=== PATIENT | female | born 2000 | race Caucasian/White ===

== ENCOUNTER 2023-07-31 21:01 | Outpatient (REF) | payer BC, SELFPAY ==
[2023-08-05 13:07] LABS: Age Gdln ACOG Testing Note (.); IGP, rfx Aptima HPV ASCU Note (.)
== END 2023-07-31 21:02 | disposition home or self-care (01) ==
LOC: LAB 21:01
PROVIDERS: PCP Family Medicine; Visit Provider Obstetrics & Gynecology
DX: Z12.4 Encounter for screening for malignant neoplasm of cervix (principal)
CPT/HCPCS: G0145

== ENCOUNTER 2025-07-08 14:07 | Outpatient (RCR) | payer BC, SELFPAY ==
--- OUTSIDE RECORDS SUMMARY | 2025-07-08 14:01 | XMS_ITS | Encounter Summary ---
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 Name Role Phone Humza Foy MD Primary Care Provider [phone] Encounter Details DateTypeDepartmentCare Team (Latest Contact Info)Gifplolwapx14/22/2025Telephone [facility] [address] [place] [phone] Roseanne Jones MA Social History Tobacco UseTypesPacks/DayYears UsedDateSmoking Tobacco: NeverSmokeless Tobacco: NeverAlcohol UseStandard Drinks/WeekCommentsNever0 (1 standard drink = 0.6 oz pure alcohol)CommentsUnknownSex and Gender InformationValueDate Recorded Sex Assigned at BirthNot on fileLegal IwpXdcqfo51/15/2023 7:25 PM EDTGender IdentityNot on fileSexual OrientationNot on filedocumented as of this encounter Miscellaneous Notes * Telephone Encounter - Roseanne Jones MA - 07/08/2025 12:39 PM EDT Verbal order per Dr. Mckinley for hCG level. Pt called and advised that orders were faxed to [facility] whenever she is ready to do them. PVU documented in this encounter Plan of Treatment DateTypeDepartmentCare Team (Latest Contact Info)Fvrnjuqsaaw07/04/2025 9:50 AM ESTOffice Visit [facility] [address] [place] [phone] John Mckinley, [address] [place], [place] [phone] NameTypePriorityAssociated DiagnosesOrder SchedulehCG, quantitative, LabRoutine Positive urine test ([facility]) Expected: 07/08/2025 (Approximate), Expires: 01/06/2026documented as of this encounter Visit Diagnoses Diagnosis Positive urine test ([facility]) documented in this encounter Care Teams Team MemberRelationshipSpecialtyStart DateEnd Date Humza Foy MD [address] [facility] [place] [phone] PCP - GeneralFamily Yyuictvn47/14/23documented as of this encounter
--- OUTSIDE RECORDS SUMMARY | 2025-07-08 14:01 | XMS_ITS | Clinical Summary ---
Author Organization [facility] Formerly [facility] tem Address [id number] [place] [address] Care Team Providers Care Sports Complex Attendant Name Role Phone Humza Foy MD Primary Care Provider [phone] Allergies Active AllergyReactionsCriticalityNoted AhowZkczcbeoLtanjpnnule43/01/2019 Medications No known medications Social History Tobacco UseTypesPacks/DayYears UsedDateSmoking Tobacco: Never AssessedChildcare AnswerDate YamsgyxaMlcmpphfvKnlhevf27/01/2019EmploymentAnswerDate Recorded GzddiawgdxMypgsgn30/01/2019Purpose - LifeAnswerDate RecordedPurpose and direction in tjdhTbbivex36/11/2021CommentsUnknownSex and Gender InformationValueDate RecordedSex Assigned at BirthNot on fileLegal SexFemale 03/17/2019 11:04 PM EDTGender IdentityNot on fileSexual OrientationNot on file Last Filed Vital Signs Vital SignReadingTime TakenCommentsBlood Xhnrhclv816/8007 11:17 PM EDT Jzrvq375303/17/2019 11:17 PM TWVDyswwpzgurc25.9 ??C (98.5 ??F)03/17/2019 11:17 PM EDTRespiratory Eyud893603/17/2019 11:17 PM EDTOxygen Toovjxamgf49%03/17/2019 11:17 PM EDTInhaled Oxygen Concentration--Zdrzrk41.3 kg (159 lb 6.3 oz)03/17/2019 11:17 PM LRXZtvecg253.6 cm (5' 6 )03/17/2019 11:17 PM EDTBody Mass Index25.73 03/17/2019 11:17 PM EDT Plan of Treatment Health MaintenanceDue DateLast DoneCommentsDepression Nrcaynzuc83/20/2013Tobacco Ccoxlfofs65/20/2013dult BMI Gyfknovke94/20/2019DTaP,Tdap and Td Vaccines (1 - Tdap)2019Pap Smear2021Influenza Tbhprvb3805/18/2025 Medical Devices Not on file Insurance * Guarantor: Jem Briceño TypeRelation to PatientDate of BirthPhone Billing AddressPersonal/NuxufkQvnb14/20/[address] [address] Care Teams Team MemberRelationshipSpecialtyStart Date Humza Foy MD PCP - GeneralFamily Medicine03/17/19
--- OUTSIDE RECORDS SUMMARY | 2025-07-08 14:01 | XMS_ITS | Clinical Summary ---
Author Organization [facility] Address [address] [place] [address] Care Team Providers Care Visual Basic Programmer Name Role Phone Humza Foy MD Primary Care Provider [phone] Allergies Active AllergyReactionsCriticalityNoted GxsgRcmkbkqwBuxhhqwenpiSuxxk57/06/2019 Medications MedicationSigDispense QuantityRefillsLast FilledStart DateEnd DateStatus pantoprazole (PROTONIX) 20 MG tablet Take 20 mg by mouth daily .Active sucralfate (CARAFATE) 1 gram tablet Take 1 g by mouth 4 (four) times a day before meals .Active norgestimate-ethinyl estradiol (ORTHO TRI-CYCLEN,TRINESSA) 0.18/0.215/0.25 mg-35 mcg (28) per tablet Take 1 tablet by mouth daily .Active ondansetron (ZOFRAN) 4 MG tablet Take 1 (one) tablet (4 mg total) by mouth every 8 (eight) hours as needed for nausea . 20 tablet 12/25/2018Active Active Problems ProblemNoted DateDiagnosed DateAcute ukqxsvryx83/07/2019 Family History Medical HistoryRelationCommentsGallbladder diseaseMaternal GrandmotherPancreatic cancerMaternal GrandmotherBreast cancerPaternal GrandmotherRelationStatus CommentsMaternal GrandmotherPaternal Grandmother Social History Tobacco UseTypesPacks/DayYears UsedDateSmoking Tobacco: NeverSmokeless Tobacco: NeverAlcohol UseStandard Drinks/WeekCommentsNot Currently0 (1 standard drink = 0.6 oz pure alcohol)CommentsNoSex and Gender InformationValueDate RecordedSex Assigned at BirthNot on fileLegal JgqEhzsfy51/06/2019 10:13 PM EDT Gender WjllnpouBxxfky92/06/2019 10:20 PM EDTSexual OrientationNot on file Last Filed Vital Signs Vital SignReadingTime TakenCommentsBlood Syvbwheg903/6104 8:19 AM EDT Rhgkz7003 8:19 AM WXKYeuoonrwmuw60.8 ??C (98.3 ??F)12/25/2018 8:19 AM EDTRespiratory Jnab9734 8:19 AM EDTOxygen Vpwdesuayr76%12/25/2018 8:19 AM EDTInhaled Oxygen Concentration--Ribtow43.1 kg (145 lb 11.6 oz)12/25/2018 4:04 AM OAUCkaqmo858.6 cm (5' 4 )12/23/2018 11:11 AM EDTBody Mass Index25.01 12/23/2018 11:11 AM EDT Plan of Treatment Health MaintenanceDue DateLast DoneCommentsChlamydia Nekkvhvib44/20/2001Tetanus: Every 10yrs (RETIRED)2000Wellness Visit2003Depression Screening/Follow-Up (PHQ-2/9)2012HIV Ueqipaqjo58/20/2016HPV Vaccines (1 - 3-dose series)2015Pap Smear2COVID-19 Vaccine ( season) 2025Influenza Vaccine (#1)2025Hepatitis C ScreeningCompleted 12/21/2018Pneumococcal VaccineAged OutNo longer eligible based on patient's age to complete this topic Procedures Procedure NamePriorityDate/TimeAssociated DiagnosisCommentsHEPATITIS PANEL, ACUTEAdd-On12/21/2018 10:21 PM EDT from Last 3 Months or Most Recently Relevant to Health Maintenance Results * Hepatitis Panel, Acute (12/21/2018 10:21 PM EDT)ComponentValueRef RangeTest MethodAnalysis TimePerformed AtPathologist SignatureHep A IgMNegativeNegative 12/22/2018 1:20 PM [facility] LABHep B C IgMNegative Pmyvihkr94/07/2019 1:20 PM EDTR[facility] LABHepatitis B Surface JwWupesrbhAspobitd24/07/2019 1:20 PM [facility] LABHepatitis C MrLcbxjdgxOesatdjr56/07/2019 1:20 PM [facility] LABSpecimen (Source)Anatomical Location / LateralityCollection Method / VolumeCollection TimeReceived TimeBloodBLOOD SPECIMEN / UnknownVenipuncture / Vofcuxo5712/21/2018 10:21 PM EDT12/21/2018 10:31 PM EDT Narrative LAB - 12/22/2018 1:20 PM EDT Test performed using Colin MIRIAM immunoassay system Authorizing ProviderResult TypeResult StatusDandrejustine Wagner DOLAB BLOOD ORDERABLESFinal ResultPerforming OrganizationAddressCity/State/ZIP CodePhone Number LAB [address] [place] [address] from Last 3 Months or Most Recently Relevant to Health Maintenance Insurance * Guarantor: Mark Briceño TypeRelation to PatientDate of BirthPhone Billing AddressPersonal/PfvitlXubj95/20/2001 [phone] (Home) [address] [place] [address] Advance Directives For more information, please contact: [phone] * Full Code (Latest Code Status on File) Date ActivatedDate InactivatedComments12/22/2018 1:22 AM Care Teams Team MemberRelationshipSpecialtyStart DateEnd Date Humza Foy MD [address] [facility] [place] [phone] PCP - GeneralFamily Medicine12/21/18
--- OUTSIDE RECORDS SUMMARY | 2025-07-08 14:01 | XMS_ITS | Encounter Summary ---
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 Name Role Phone Humza Foy MD Primary Care Provider [phone] Encounter Details DateTypeDepartmentCare Team (Latest Contact Info)Lkzbrfmasmk42/07/2025Telephone [facility] [address] [place] [address] Song Bains MD [address] [place], [place] [phone] Social History Tobacco UseTypesPacks/DayYears UsedDateSmoking Tobacco: NeverSmokeless Tobacco: NeverAlcohol UseStandard Drinks/WeekCommentsNever0 (1 standard drink = 0.6 oz pure alcohol)CommentsUnknownSex and Gender InformationValueDate Recorded Sex Assigned at BirthNot on fileLegal QysIxtuhp16/15/2023 7:25 PM EDTGender IdentityNot on fileSexual OrientationNot on filedocumented as of this encounter Miscellaneous Notes * Telephone Encounter - MIKAYLA CISNEROS - 06/23/2025 1:03 PM EDT Placed call to patient, l/m asking she call the office back. * Telephone Encounter - MIKAYLA CISNEROS - 06/23/2025 1:02 PM EDT I am okay with forgiving her a 1 time missed appointment, she may schedule 1 more time but if she misses that then she should not be rescheduled. ----- Message ----- From: MIKAYLA CISNEROS Sent: 06/23/2025 11:44 AM EDT To: Song Bains MD Subject: FW: Appointment Missed Please advise if you would like me to reschedule this new patient appt, she was a no-show today. Normally for a new patient no-show we do not r/s. ----- Message ----- From: Lisset Alexandra Sent: 06/23/2025 11:11 AM EDT To: MIKAYLA CISNEROS Subject: FW: Appointment Missed ----- Message ----- From: Mark Keen Sent: 06/23/2025 11:02 AM EDT To: Joaquín Abdul Front Office Subject: Appointment Missed Chava, I am so sorry! Messaging you now because i wont be available to call until tonight. My mom had booked an appointment for me and she didn?t realize i already had a dentist appointment booked and it was to my understanding that she called you guys and cancelled so im sorry about that it was miscommunication! ----- Message ----- From: Babs Price Sent: 06/23/2025 10:15 AM EDT To: Mark Keen Subject: Appointment Missed Appointment Information: Visit Type: New Patient Appointment Date: 06/23/2025 Dept: [facility] Provider: SONG BAINS Time: 10:00 AM Length: 30 min Appt Status: No Show Appt Instructions: Bring list of current medications and any insurance information and a copayment if required by your insurance company. documented in this encounter Plan of Treatment DateTypeDepartmentCare Team (Latest Contact Info)Eqykspxxfch06/04/2025 9:50 AM ESTOffice Visit [facility] [address] [place] [address] John Mckinley DO [address] [place] [address] documented as of this encounter Visit Diagnoses Not on filedocumented in this encounter Care Teams Team MemberRelationshipSpecialtyStart DateEnd Date Humza Foy MD [address] [place] [phone] PCP - GeneralFamily Flvsqpgp55/14/23documented as of this encounter
--- OUTSIDE RECORDS SUMMARY | 2025-07-08 14:01 | XMS_ITS | Clinical Summary ---
Author Organization [facility] Address [address] [place] [address] Care Team Providers Care Experience Specialist Name Role Phone Humza Foy MD Primary Care Provider [phone] Allergies Active AllergyReactionsCriticalityNoted YbyzDuxolwhpSoozfhqnyquOurtv70/06/2019 Phazrtrviym38/02/2023 Medications MedicationSigDispense QuantityRefillsLast FilledStart DateEnd DateStatus ketoconazole (NIZOral) 2 % shampoo Indications:Tinea versicolorUse in shower to affected areas every day until clear then use qweek 120 mL 111ctive ketoconazole (NIZOral) 2 % shampoo Apply topically 2 (two) times a week. It is a body washActive Active Problems No known active problems Encounters DateTypeDepartmentCare IvuvLalrazxfkyb43/22/2025Telephone [facility] [address] [place] [address] Roseanne Jones MA 06/23/2025Telephone [facility] [address] [place] [address] Song Bains MD 06/23/2025Telephone [facility] [address] [place] [address] Love Campoverde MA from Last 3 Months Family History Medical HistoryRelationNameCommentsBreast cancerMaternal GrandmotherPancreatic cancerPaternal GrandmotherRelationNameStatusCommentsFatherAliveMaternal GrandmotherMotherAlivePaternal Grandmother Social History Tobacco UseTypesPacks/DayYears UsedDateSmoking Tobacco: NeverSmokeless Tobacco: Never Tobacco Cessation:Counseling Given: Not Answered Alcohol UseStandard Drinks/WeekCommentsNever0 (1 standard drink = 0.6 oz pure alcohol)CommentsUnknownSex and Gender InformationValueDate RecordedSex Assigned at BirthNot on fileLegal KreJfanuy84/15/2023 7:25 PM EDTGender Identity Not on fileSexual OrientationNot on file Last Filed Vital Signs Vital SignReadingTime TakenCommentsBlood Duozrakq160/80109/30/2022 1:15 PM EST Pulse--Temperature--Respiratory Rate--Oxygen Saturation--Inhaled Oxygen Concentration--Yczphj97.1 kg (178 lb 12.8 oz)07/31/2023 1:15 PM CDDPwyuza135.6 cm (5' 6 )07/31/2023 1:15 PM ESTBody Mass Index28.8607/31/2023 1:15 PM EST Plan of Treatment DateTypeDepartmentCare Team (Latest Contact Info)Zqrwftydqgj16/04/2025 9:50 AM ESTOffice Visit [facility] [address] [place] [address] John Mckinley DO [address] [facility] [address] [place] [address] Insurance Care Teams Team MemberRelationshipSpecialtyStart Date Humza Foy MD [address] [place] [phone] PCP - GeneralFamily Hiljkfnj96/14/23
--- OUTSIDE RECORDS SUMMARY | 2025-07-08 14:03 | XMS_ITS | CCD ---
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 Name Role Phone Alexandrea Foy Primary Care Provider ALEXANDREA FOY Primary Care Unavailable [facility] Consulting KISHAN Langston Admitting Unavail able RUSSELL CANTOR Attending Unavailable BROOKE DELA CRUZ Admitting Unavailable BROOKE DELA CRUZ Attending Unavailable ALEXANDREA FOY Primary Care Unavailable ALEXANDREA FOY Consulting Unavailable GREY RIZZO Consulting Unavailable ALEXANDREA FOY Admitting Unavailable ALEXANDREA FOY Attending Unavailable ALEXANDREA FOY Admitting Unavailable ALEXANDREA FOY Attending Unavailable ALEXANDREA FOY Primary Care Unavailable ALEXANDREA FOY Consulting Unavailable CECILIA MORFIN Consulting Unavailable Melissa Tilley Consulting Unavailable Brooke Sena Unavailable MAYLIN FOLR Attending Unavailable Alexandrea Foy MD Primary Care Provider [phone] Cris Castanon APRN Attending Provider Allergies Allergy ClassificationReported Allergen(s)Allergy TypeDate of OnsetReaction(s) Facility (5 sources)Amoxicillin; Translations: [AMOXICILLIN]Drug Wmkmigl18-85-1729Rzbme [facility] (1 source)AmoxicillinDrug Reqhdfi35-88-3715Eda [facility] (2 sources)PenicillinsAllergy to hmutimkbl82-54-5513QrwntGfntntxpiPremier Health Medications Current Medications MedicationDrug Class(es)DatesSig (Normalized)Sig (Original)acetaminophen 325 mg / HYDROcodone bitartrate 5 mg oral tablet (2 sources)Opioid AgonistStart: 12-25-2018 End: 81-44-9268qolq 1 tablet by mouth every six hours as needed for pain HYDROcodone-acetaminophen (NORCO) 5-325 mg per tablet Indications: Post- operative pain Take 1 (one)tablet by mouth every 6 (six) hours as needed (moderate pain) . 20 tablet 0 12/25/2018 01/01/2019 ActiveStart: 12-25-2018 End: 54-63-0987igdl 1 tablet by mouth every six hours as neededHYDROcodone- acetaminophen (NORCO) 5-325 mg per tablet 1 tabletNo Name (No Known Home Meds) (1 source)Start: 32-77-4200Sy Name (No Known Home Meds) Active April 30, 2025 12:00amondansetron 4 mg oral tablet (8 sources)Serotonin-3 Receptor AntagonistStart: 12-25-2018 End: 15-08-4674znzh 1 tablet by mouth every eight hours as neededondansetron (ZOFRAN) 4 MG tablet Take 1 (one) tablet (4 mg total) by mouth every 8 (eight) hours asneeded for nausea . 20 tablet 0 12/25/2018 01/24/2019 ActiveStart: 12-25-2018 End: 66-60-7927dglf 1 tablet by mouth every eight hours as neededondansetron (ZOFRAN) 8 MG tablet Take 1 (one) tablet (8 mg total) by mouth every 8 (eight) hours asneeded for nausea . 20 tablet 0 12/25/2018 12/25/2018 DiscontinuedStart: 12-24-2018 End: 12-24-20184 mg, Intravenous, Every 15 min PRN, nausea, vomiting, Starting Sun12/24/18 at 1514, For 2 doses, PACU (only) Do not give more than 2 doses. Administer first as needed for nausea/vomiting, or as directed by anesthesiaStart: 12-24-2018 End: 55-78-5315prxchcamzom (ZOFRAN) injection 4 mgStart: 12-21-2018 End: 19-96-4470lymj 4 mg intravenous route every four hours as neededondansetron (ZOFRAN) injection 4 mgsucralfate 1000 mg oral tablet (1 source)Aluminum Complextake 1 tablet by mouth four times daily before mealtimesucralfate (CARAFATE) 1 gram tablet Take 1 g by mouth 4 (four) times a day before meals . 0 Active Completed/Discontinued Medications MedicationDrug Class(es)DatesSig (Normalized)Sig (Original)acetaminophen 325 mg oral tablet (2 sources)Start: 12-25-2018 End: 58-16-2054wpiwznnuiblac (TYLENOL) tablet 650 mgStart: 12-24-2018 End: 48-94-0150jwvu 650 mg by mouth qpbn126 mg, Oral, Once, Sun12/24/18 at 1145, For 1 dose, Pre-Procedure If patient has not had acetaminophen containing products within the past 6 hours.azithromycin 250 mg oral tablet (3 sources)Macrolide AntimicrobialStart: 04-16-2024 End: 33-69-1612Ygwrulxbirhz 250 mg tablet Discontinued 0 PO .COMPLEX April 16, 2024 12:00am April 30, 2025 2:00pm For 250 mg dose pack: take 500 mg today (day 1), then 250 mg for 4 days (days 2-5) POStart: 87-02-2660Lhsbvllmgbla Active 0 PO .COMPLEX April 16, 2024 12:00am For 250 mg dose pack: take 500 mg today(day 1), then 250 mg for 4 days (days 2-5) POStart: 12-11-2022 Azithromycin 200 MG/5ML 5 mL po day 1, then 2.5 ml daily days 2 to 5 Orally Once a day for 5 day(s)Nov, Activecalcium chloride 0.0014 meq/ml / potassium chloride 0.004 meq/ml / sodium chloride 0.103 meq/ml / sodium lactate 0.028 meq/ml injectable solution (2 sources)Start: 12-23-2018 End: 74-57-2840fgyhcwhe Ringers gictcymb913 ml ciprofloxacin 2 mg/ml injection (1 source)Quinolone AntimicrobialStart: 12-22-2018 End: 01-69-8097rteo 400 mg intravenous route every twelve hoursciprofloxacin (CIPRO) IVPB 400 mg (premix)diphenhydrAMINE (1 source)Histamine-1 Receptor AntagonistStart: 12-24-2018 End: 04-80-3128qenbiwbnbgQZEMX (BENADRYL) injection 25 mgdocusate sodium 100 mg oral capsule (4 sources)Start: 12-25-2018 End: 91-38-7164jfoj 1 capsule by mouth twice dailydocusate sodium (COLACE) 100 MG capsule Take 1 (one) capsule (100 mg total) by mouth 2 (two) times a day Hold if having loose stools for 10 days . 10 capsule 0 12/25/2018 12/25/2018 DiscontinuedNorgestimate-Ethinyl Estradiol (3 sources)Progestin, EstrogenStart: 01-07-2020 End: 88-13-3019ofri 1 tablet by mouth once dailyNorgestimate-Ethinyl Estradiol 0.18/0.215/0.25 mg-35 mcg (28) tablet Discontinued 1 TAB PO Daily January 07, 2020 12:00am April 16, 2024 2:06pmStart: 01-07-2020 End: 37-37-0425irxw 1 tablet by mouth once dailyNorgestimate-Ethinyl Estradiol Discontinued 1 TAB PO Daily January 07, 2020 12:00am April 1642:06pmtake 1 tablet by mouth once dailynorgestimate-ethinyl estradiol (ORTHO TRI- CYCLEN,TRINESSA) 0.18/0.215/0.25 mg-35 mcg (28) per tablet Take 1 tablet by mouth daily . 0 Activegabapentin 300 mg oral capsule (1 source)Anti-epileptic AgentStart: 12-24-2018 End: 46-39-5190agqz 300 mg by mouth epln298 mg, Oral, Once, Tu12/24/18 at 1145, For 1 dose, Pre-Procedure If patient has not had a dose of gabapentin or pregabalin today.Start: 12-24-2018 End: 95-26-7872empf 300 mg by mouth fsen610 mg, Oral, Once, Sun12/24/18 at 1145, For 1 dose, Pre-Procedure If patient has not had a dose of gabapentin or pregabalin today.HYDROmorphone (DILAUDID) 0.5 mg/mL injection - ADS Override Pull (1 source)Start: 12-24-2018 End: 58-39-4732KDMLXogqunifd (DILAUDID) 0.5 mg/mL injection - ADS Override Pull HYDROmorphone (DILAUDID) 0.5 mg/mL injection 0.5 mg (1 source)Start: 12-24-2018 End: 12-24-20180.5 mg, Intravenous, Every 10 min PRN, moderate to severe pain, Starting Sun12/24/18 at 1514, For 6 doses, PACU (only) [] Give if fentanyl not effective or not ordered. [] Do not give more than 3 mg total.iopamidol (ISOVUE-370) 76 % injection 75 mL (1 source)Start: 12-22-2018 End: 53-91-8101ydlpharpn (ISOVUE-370) 76 % injection 75 mL1 ml ketorolac tromethamine 30 mg/ml injection (3 sources)Nonsteroidal Anti-inflammatory Drug, Cyclooxygenase InhibitorStart: 12-25-2018 End: 68-51-2390lbwy 30 mg intravenous route every eight hours as neededketorolac (TORADOL) injection 30 mgStart: 12-24-2018 End: 80-58-7283nlnf 15 mg intravenous route every eight hours as neededketorolac (TORADOL) injection 15 mgStart: 12-22-2018 End: 38-21-7956qjsj 15 mg intravenous route every eight hours as neededketorolac (TORADOL) injection 15 mglidocaine viscous 2% 10 mL and maalox plus 30 mL (GI COCKTAIL) 40 mL solution (2 sources)Start: 12-22-2018 End: 78-99-4781rqbx 40 mL by mouth every eight hours as neededlidocaine viscous 2% 10 mL and maalox plus 30 mL (GI COCKTAIL) 40 mL solutionStart: 12-21-2018 End: 46-21-8301lfopugift viscous 2% 10 mL and maalox plus 30 mL (GI COCKTAIL) 40 mL solutionmagnesium hydroxide 80 mg/ml oral suspension (1 source)Start: 12-22-2018 End: 55-78-9603ynrxqmpoc hydroxide (MOM) 400 mg/5 mL suspension 2,400 mg metroNIDAZOLE 250 mg oral tablet (1 source)Nitroimidazole AntimicrobialStart: 12-22-2018 End: 34-63-7850rdelzKZHEXIPC (FLAGYL) tablet 500 mgnaloxone (NARCAN) injection 0.1 mg (1 source)Start: 12-24-2018 End: 72-24-8435bdwyfblh (NARCAN) injection 0.1 mgoxyCODONE hydrochloride 5 mg oral tablet (3 sources)Opioid AgonistStart: 12-24-2018 End: 97-14-4117ofkd 1 tablet by mouth every six hours as needed, then take 7 tablets by mouth as neededoxyCODONE (ROXICODONE) 5 MG immediate release tablet Indications: Post-operative pain Take 1 (one) tablet (5 mg total) by mouth every 6 (six) hours as needed (Days supply per fill: 7) . 20 tablet 0 12/25/2018 12/25/2018 Discontinuedpantoprazole 40 mg delayed release oral tablet (3 sources)Proton Pump InhibitorStart: 12-25-2018 End: 78-86-3333pquuvrrsjoyb (PROTONIX) EC tablet 40 mgStart: 12-22-2018 End: 18-77-189150 mg, Intravenous, Daily, First dose on 12/22/18 at 0900take 1 tablet by mouth once dailypantoprazole (PROTONIX) 20 MG tablet Take 20 mg by mouth daily . 0 Uphksl50 hr scopolamine 0.0139 mg/hr transdermal system (1 source)AnticholinergicStart: 12-22-2018 End: 75-99-1810wldvrstaifv (TRANSDERM-SCOP) 1 mg over 3 days patch 1 mhjis6943 ml sodium chloride 9 mg/ml injection (4 sources)Start: 12-23-2018 End: 95-49-4036rbscbk chloride 0.9% (NS)Start: 12-22-2018 End: 75-59-3684yazqnd chloride 0.9 % (NS) infusion - ADS Override PullStart: 12-21-2018 End: 48-29-8322912 mL/hr, Intravenous, Continuous, Starting 12/22/18 at 0330, For 16 hours 125 mL/hr for 2 Liters, then convert to saline lock Problems Active Problems Problem ClassificationProblemDateDocumented DateEpisodic/ChronicAbdominal pain (4 sources)Abdominal pain; Translations: [Unspecified abdominal pain]Onset: 76-36-7954JrquvuspGmrqbat tract disease (3 sources)Cholelithiasis with obstruction; Translations: [Calculus of gallbladder and bile duct without cholecystitis with obstruction]Onset: 61-42-5263ObteccylJcfan and electrolyte disorders (4 sources)Dehydration; Translations: [DEHYDRATION]Onset: 14-95-4809Tehrojmu Hepatitis (2 sources)Acute hepatitis; Translations: [Acute hepatitis]Onset: 12-22-2018 37-89-3341ZhbbhygbAvcvzsqozmpcj and screening for infectious disease (1 source)Contact with or exposure to other viral diseases; Translations: [Contact with or suspected exposureto severe acute respiratory syndrome coronavirus 2 (SARS-CoV-2)]88-63-9484JzflcktwYcslqn and vomiting (3 sources)Nausea and vomiting; Translations: [Nausea with vomiting, unspecified]Onset: 92-30-3620OqoginamFivukaxfkokja gastroenteritis (1 source)Noninfective gastroenteritis and colitis, unspecified; Translations: [NONINFECTIVE GE AND COLITIS UNS]Onset: 10-70-2239CmsxobmqFpzbm circulatory disease (1 source)Elevated blood pressure; Translations: [Elevated blood pressure reading]EpisodicOther circulatory disease (2 sources)Elevated blood-pressure reading, without diagnosis of hypertension; Translations: [Elevated blood-pressure reading, without diagnosis of hypertension]Onset: 05-90-2868ToqqafhdUqyss liver diseases (1 source)Enzyme level - finding; Translations: [Transaminitis]EpisodicOther liver diseases (2 sources)Nonspecific elevation of levels of transaminase and lactic acid dehydrogenase [LDH]; Translations: [Nonspecific elevation of levels of transaminase and lactic acid dehydrogenase (ldh)]Onset: 51-84-5805KrlvpjdzOfvwc nervous system disorders (1 source)Postoperative pain ; Translations: [Post-operative pain]EpisodicOther nervous system disorders (2 sources)Other acute postprocedural pain; Translations: [Other acute postprocedural pain]Onset: 16-86-7190KdlhmnpjNeyhe nutritional; endocrine; and metabolic disorders (1 source)Hyperbilirubinemia; Translations: [Hyperbilirubinemia]ChronicOther nutritional; endocrine; and metabolic disorders (2 sources)Other disorders of bilirubin metabolism; Translations: [Other disorders of bilirubin metabolism]Onset: 13-79-7994PyqarrkDzpym screening for suspected conditions (not mental disorders or infectious disease) (4 sources)Serum creatinine raised; Translations: [Other specified abnormal findings of blood chemistry]Onset: 51-22-5104WzhkgehqPyrgz upper respiratory infections (5 sources)Sore throat symptom; Translations: [Acute pharyngitis, unspecified] EpisodicOtitis media and related conditions (1 source)Acute bilateral otitis media ; Translations: [Otitis media, unspecified, bilateral]79-67-5487YwcfzvzxNdrypgxc codes; unclassified (1 source)Acquired absence of other specified parts of digestive tract; Translations: [ACQ ABSENCE OTH PART DIGESTV TRACT]Onset: 75-03-2788SsvvpdkmYbnsf infection (2 sources)Infectious mononucleosis; Translations: [Infectious mononucleosis, unspecified without complication]29-01-5266PinyukbfWfgofue on above:Problem List clean-up per request of Phys. EHR Cmte Past or Other Problems Problem ClassificationProblemDateDocumented DateEpisodic/ChronicOther connective tissue disease (1 source)Pain in right arm; Translations: [PAIN IN RIGHT ARM]Onset: 03-06-2019 EpisodicPhlebitis; thrombophlebitis and thromboembolism (1 source)Phlebitis and thrombophlebitis of other sites; Translations: [PHLEBITIS THROMBOPHLEBITIS OTH SITE]Onset: 63-11-0866GechhansCrbsiiuo codes; unclassified (4 sources)Localized edema; Translations: [LOCALIZED EDEMA]Onset: 02-20-2019 Episodic Results Test NameValueInterpretationReference RangeFacilityNo Panel InformationOrdered By: Cris Castanon on 00-40-4409Atjcs Strep (POC)[facility]No Panel InformationOrdered By: Gloria De La Garza on 97-59-7891Pofrh Strep (POC) [facility] HospitalQuick Strepon 12-11-2022S. pyogenes Org specific cx Ql (Throat)NegativeNoSelvz Other Quick StrepNoSelvz Other HEPATITIS PANEL, ACUTEon 56-24-0954LIcUj Screen NegativeNormalNegativeGuernsey Memorial HospitalComment on above:Performed By: #### CBC #### [facility] [address] [place] [address] Bakari Conway A Ab, IgMNegativeNormalNegativeGuernsey Memorial HospitalComment on above:Performed By: #### CBC #### [facility] [address] [address] Bakari Conway B Core Ab, IgMNegativeNormalNegativeThe [facility] HospitalComment on above:Performed By: #### CBC #### [facility] [address] [address] Bakari HesterenHep C Virus Ab<0.3Oypxdj8.0-0.9The [facility] HospitalComment on above:Result Comment: Negative: < 0.8 Indeterminate: 0.8 - 0.9 Positive: > 0.9 . The [facility] recommends that a positive HCV antibody result be followed up with a HCV Nucleic Acid Amplification test (221136).Performed By: #### CBC #### [facility] [address] [address] Bakari KarenAMYLASEon 62-44-3549Uuupoxe [Catalytic activity/Vol]35 U/LNormal 31-110The [facility] HospitalComment on above:Performed By: #### RAUL, KELSEA, CMP ####[facility] Whybzkt[address] [place], [place] [address]Gerken KarenCBC AUTO DIFFon 29-21-5215Yfnddplsi (Bld) [#/Vol]0.2 103/ulCritically high 0.0-0.1The [facility] HospitalComment on above:Performed By: #### CBC ####[facility] Pwmdtofx[address] [place], [place] [address]Gerken Shannan Basophils/100 WBC (Bld)1.3 %Normal0.2-2.0The [facility] HospitalComment on above: Performed By: #### CBC ####[facility] [address] [place], [place] [address]Gerken KarenEosinophils (Bld) [#/Vol]0.0 103/ulNormal 0.0-0.7The [facility] HospitalComment on above:Performed By: #### CBC ####[facility] Crqxcgxrly[address] [place], [place] [address]Gerken Shannan Eosinophils/100 WBC (Bld)0.3 %Critically low0.9-7.0The [facility] HospitalComment on above:Performed By: #### CBC ####[facility] Mifinqvhqf[address] KarenErythrocyte distribution width (RBC) [Ratio]12.8 %Ymzlkm92.0-15.0The [facility] HospitalComment on above:Performed By: #### CBC ####[facility] Zwhkoxxnfc[address] KarenHematocrit (Bld) [Volume fraction]39.2 %Hjfbrj94.0-48.0The [facility] HospitalComment on above:Performed By: #### CBC ####[facility] Tphzjfswde[address] KarenHemoglobin (Bld) [Mass/Vol]13.0 g/eONpekzu47.0-16.0The [facility] HospitalComment on above: Performed By: #### CBC ####[facility] [address] [place] [address] KarenIG #0.18 10e3/ulCritically high0.00-0.03 The [facility] HospitalComment on above:Performed By: #### CBC ####[facility] [address] [place] [address] KarenIG %1.5 %Critically high0.0-0.5The [facility] HospitalComment on above:Performed By: #### CBC ####[facility] [address] [place] [address] KarenLymphocytes (Bld) [#/Vol]9.1 103/ulCritically high1.2-3.8The [facility] HospitalCommclaren [facility] on above:Performed By: #### CBC ####[facility] [address] [place] [address] KarenLymphocytes/100 WBC (Bld)76.0 %Critically high20.5-60.0The [facility] HospitalCommclaren [facility] on above: Performed By: #### CBC ####[facility] [address] [place] [address] KarenMANUAL DIFF REQNONormalThe [facility] HospitalComment on above:Performed By: #### CBC ####[facility] [address] [address]Gerken KarenJACOBI MED[facility] (RBC) [Entitic mass]27.9 pbEbwlxg93.7-34.0The [facility] HospitalComment on above: Performed By: #### CBC ####[facility] [address] [place], [place] [address]Gerken KarenMC (RBC) [Mass/Vol]33.2 g/dLNormal 29.9-35.2The [facility] HospitalComment on above:Performed By: #### CBC ####[facility] [address] [place] [address] KarenMCV (RBC) [Entitic vol]84.1 eMLcyvbf47.0-99.0The [facility] HospitalComment on above:Performed By: #### CBC ####[facility] [address] [place] [address] KarenMonocytes (Bld) [#/Vol]0.6 103/ulNormal 0.3-0.8The [facility] HospitalComment on above:Performed By: #### CBC ####[facility] X[address] [place] [address] Shannan Monocytes/100 WBC (Bld)4.9 %Normal1.7-12.0The [facility] HospitalComment on above: Performed By: #### CBC ####[facility] [address] [place] [address] KarenNeutrophils (Bld) [#/Vol]1.9 103/ulNormal 1.4-6.5The [facility] HospitalComment on above:Performed By: #### CBC ####[facility] [address] [place] [address] Shannan Neutrophils/100 WBC (Bld)16.0 %Critically low43.0-75.0The [facility] Comment on above:Performed By: #### CBC ####[facility] [address] [place] [address] KarenPlatelet mean volume (Bld) [Entitic vol]11.5 fLNormal9.5-13.5The [facility] HospitalComment on above: Performed By: #### CBC ####[facility] Noibhmxohl2752 [address] KarenPlatelets (Bld) [#/Vol]138 103/ul Critically keg170-194Mjt [facility] HospitalComment on above:Result Comment: count okPerformed By: #### CBC ####[facility] Ypxoyrepic0054 [address] KarenRBC (Bld) [#/Vol]4.66 106/ulNormal 4.20-5.40The [facility] HospitalComment on above:Performed By: #### CBC ####[facility] [address]xv[address] [place] [address] KarenWBC (Bld) [#/Vol]12.0 103/ulCritically high4.0-11.0The [facility] Comment on above:Performed By: #### CBC ####[facility] [address] [place] [address] KarenCULTURE URINEon 01-09-2020 CULTURE URINECulture Observations: No growth.NormalThe [facility] HospitalComment on above:Performed By: #### CBC #### [facility] [address] KarenDIFFERENTIAL MANUALon 81-53-2652CIFMCQBR LYMPH #2.86 103/ulNormalThe [facility] HospitalComment on above:Performed By: #### DIFF ####[facility] [address] [place] [address] KarenATYPICAL LYMPH % 24 %NormalThe [facility] HospitalComment on above:Performed By: #### DIFF ####[facility] [address] [place] [address] KarenBAND #0.2 103/ulNormal0.0-0.3The [facility] HospitalComment on above: Performed By: #### DIFF ####[facility] [address] [place] [address] KarenBAND %2 %Normal0-5The [facility] Comment on above:Performed By: #### DIFF ####[facility] [address] [place] [address] KarenBASOM #0.00 103/ulNormal 0.00-0.10The [facility] HospitalComment on above:Performed By: #### DIFF ####[facility] [address]fulf[address] [place] [address] KarenBASOM %0.0 %Critically low0.2-2.0The [facility] HospitalComment on above: Performed By: #### DIFF ####[facility] [address] [place] [address] KarenBLAST #NormalThe [facility] HospitalComment on above:Performed By: #### DIFF ####[facility] [address] [place] [address] KarenBLAST %NormalThe [facility] HospitalComment on above:Performed By: #### DIFF ####[facility] [address] [place] [address] KarenCORRECTED WBCNormal4.0-11.0The [facility] HospitalComment on above:Performed By: #### DIFF ####[facility] [address] [place] [address] KarenEosinophils (Bld) [#/Vol]0.12 103/ulNormal0.00-0.70The [facility] HospitalComment on above: Performed By: #### DIFF ####[facility] [address] [place] [address] KarenEosinophils/100 WBC (Bld)1.0 %Normal 0.9-7.0The [facility] HospitalComment on above:Performed By: #### DIFF ####[facility] [address] [place] [address] KarenLYMPHM #5.24 103/ulCritically high1.20-3.80The [facility] HospitalComment on above:Performed By: #### DIFF ####[facility] Metucwbcpr7553 [address] KarenLYMPHM%44.0 %Jowivw07.5-60.0The Filer HospitalComment on above:Performed By: #### DIFF ####[facility] [address] [place] [address] KarenMETAMYELOCYTE # NormalThe Filer HospitalComment on above:Performed By: #### DIFF ####[facility] Frpowkliuf[address] [place] [address] Shannan METAMYELOCYTE %NormalThe Filer HospitalComment on above:Performed By: #### DIFF ####[facility] X[address] [place] [address] KarenMONOM#0.71 103/ulNormal0.30-0.80The [facility]iler HospitalComment on above:Performed By: #### DIFF ####[facility] D[address]kq[address]fs[address] [place] [address] KarenMONOM%6.0 %Normal1.7-12.0The Filer HospitalComment on above:Performed By: #### DIFF ####[facility] Iedziztrad[address] [place] [address] KarenMYELOCYTE #Normal The [facility] HospitalComment on above:Performed By: #### DIFF ####[facility] Qrodgoerej[address] [place] [address] Shannan MYELOCYTE %NormalThe Filer HospitalComment on above:Performed By: #### DIFF ####[facility] Wh[address] [place] [address] KarenNRBCNormalThe Filer HospitalComment on above:Performed By: #### DIFF ####[facility] Jpgyachsjj[address] [place] [address] KarenSEG #2.74 103/ulNormal1.40-6.50The Filer HospitalComment on above: Performed By: #### DIFF ####[facility] Wahbkugh[address] [place] [address] KarenSegmented neutrophils/100 WBC (Bld)23.0 % Critically low43.0-75.0The [facility] HospitalComment on above:Performed By: #### DIFF ####[facility] Cupvbyjlxg[address] [place] [address] KarenWBC (Bld) [#/Vol]11.9 103/ulCritically high4.0-11.0The [facility] HospitalComment on above:Performed By: #### DIFF ####[facility] M[address]ws[address] [place] [address] KarenLIPASEon [id number] [Catalytic activity/Vol]107.0 U/CPcphrw98.0-300.0The [facility] HospitalCommclaren [facility] on above:Performed By: #### RAUL, LIPA, CMP ####[facility] Hevt[address]vfv[address] [place] [address] KarenPROF 14(COMP METB)on [id number] [Mass/Vol]3.4 g/dLCritically low3.5-5.0The [facility] HospitalComment on above:Performed By: #### RAUL, LIPA, CMP ####[facility] Obwhclazxv[address] [place] [address] KarenAlbumin/Globulin [Mass ratio]1.7 {ratio}NormalThe [facility] HospitalCommclaren [facility] on above:Performed By: #### RAUL, LIPA, CMP ####[facility] Gnvleszupv[address] [place] [address] KarenALP [Catalytic activity/Vol]376 U/L Critically kqtm16-584Pkm [facility] on above:Performed By: #### RAUL, LIPA, CMP ####[facility] Uscwmmrzxe[address] [place] [address] KarenALT [Catalytic activity/Vol]199 U/LCritically high9-52The [facility] Hospitalment on above:Performed By: #### RAUL, LIPA, CMP ####[facility] Czgskfmluh[address] [place] [address] KarenAnion gap [Moles/Vol]14.2 mmol/LNormalThe [facility] Hospitalment on above:Performed By: #### RAUL, LIPA, CMP ####[facility] Ebzqzmmfly4534 [address] KarenAST [Catalytic activity/Vol]122 U/L Critically vdwj61-45Jlm [facility] Hospitalment on above:Performed By: #### RAUL, LIPA, CMP ####[facility] Nzwirwhbgp9660 [address] KarenBilirubin Ql (U)5.3 mg/dLCritically high0.2-1.3The [facility] HospitalComment on above:Performed By: #### RAUL, LIPA, CMP ####[facility] Aplwwycvuz[address] [place] [address] KarenCalcium [Mass/Vol]8.8 mg/dLNormal8.4-10.2The [facility] on above:Performed By: #### RAUL, LIPA, CMP ####[facility] Lecrzhzxgw[address] [place] [address] KarenChloride [Moles/Vol]101 mmol/PQbnvqx92-058 The [facility] HospitalComment on above:Performed By: #### RAUL, LIPA, CMP ####[facility] S[address]stdv[address] [place] [address] KarenCO2 [Moles/Vol]26.1 mmol/SKufbhu31.0-30.0The [facility] Hospitalment on above:Performed By: #### RAUL, LIPA, CMP ####[facility] Cjmlvtazg[address] [place] [address] KarenCreatinine [Mass/Vol]0.94 mg/dL Normal0.52-1.04The [facility] Hospitalment on above:Performed By: #### RAUL, LIPA, CMP ####[facility] Qvlmwwxlee3245 [address] KarenEGFR-AF AFGHAN>60Normal>=60The [facility] HospitalComment on above:Performed By: #### RAUL, LIPA, CMP ####[facility] [address] [place], [place] [address] KarenEGFR-NON AF AFGHAN>60Normal >=60The [facility] Hospitalment on above:Performed By: #### AVELINO CARTERA, CMP ####[facility] [address] [place], [place] [address] KarenGlobulin (S) [Mass/Vol]3.3 g/dLNormalThe [facility] HospitalComment on above: Performed By: #### RAUL LIPA, CMP ####[facility] [address] [place] [address] KarenGlucose [Mass/Vol]101 mg/zXHjboud09-355 [facility] HospitalCommcl[facility] on above:Performed By: #### KELSEA CARTER, CMP ####[facility] [address] [place] [address] KarenPotassium [Moles/Vol]3.3 mmol/LCritically low3.4-5.0[facility] Comment on above:Performed By: #### RAUL LIPA, CMP ####[facility] Xcsalzdcep[address] [place], [place] [address]ken KarenProtein [Mass/Vol]6.7 g/dLNormal6.1-8.2The [facility] on above:Performed By: #### RAUL LIPA, CMP ####[facility] Y[address]ju[address] [place] [address] KarenSodium [Moles/Vol]138 mmol/WOvnrvp099-072 [facility] on above:Performed By: #### RAUL LIPA, CMP ####[facility] [address] [place] [address] KarenUrea nitrogen [Mass/Vol]16.0 mg/dLNormal6.4-19.3The [facility] Comment on above:Performed By: #### RAUL LIPA, CMP ####[facility] [address] [place] [id number] KarenUrea nitrogen/Creatinine [Mass ratio]17.0 mg/mgNoHocking Valley Community HospitalComment on above:Performed By: #### RAUL, LIPA, CMP ####[facility] Qcstwcvdam[address] [place] [address] KarenPROTIMEon [id number] Coag (PPP) [Relative time]1.04 {INR}NormalThe [facility] HospitalComment on above: Performed By: #### PT, PTT ####[facility] Nqmcatuupy[address] [place] [address] KarenPT Coag (PPP) [Time]PLEASE NOTE: NORMAL RANGE CHANGE 06-04-2014 DUE TO REAGENT LOT CHANGEVeterans Health Administration Comment on above:Performed By: #### PT, PTT ####[facility] Hjsetiekmp[address] [place] [address] KarenPT Coag (PPP) [Time]SEE BELOW NormalThe [facility] HospitalComment on above:Result Comment: DESIRED INR: 2.0 - 3.0 CONDITIONS NOT LISTED BELOW 2.5 - 3.5 FOR PROSTHETIC HEART VALVE REPLACEMENT 2.5 - 3.5 RECURRENT THROMBOSISPerformed By: #### PT, PTT ####[facility] Xoppjhfolb[address] [place] [address] KarenPT Coag (PPP) [Time]10.8 sNormal9.0-11.6The [facility] HospitalComment on above:Performed By: #### PT, PTT ####[facility] Gjxy[address] [place] [address] KarenPTTon [id number] Coag (Bld) [Time]27.2 jBdgzxp17.3-36.2The [facility] HospitalComment on above:Performed By: #### PT, PTT ####[facility] Y[address]cbyc[address] [place] [address] KarenaPTT Coag (Bld) [Time]PLEASE NOTE: NORMAL RANGE CHANGE 08-11-2015 DUE TO REAGENT LOT CHANGEVeterans Health AdministrationComment on above:Performed By: #### PT, PTT ####[facility] [address] [place] [address] KarenUA RANDOM W/MICROSCOPICon [id number] CRYSTALSFEWVeterans Health AdministrationComment on above:Performed By: #### CBC #### [facility] [address] [place] [address] Bakari KarenBacteria LM.HPF (Urine sed) [#/Area]TRACENormalNONE SEENGuernsey Memorial HospitalComment on above:Performed By: #### CBC #### [facility] [address] [place] [address] Bakari KarenBilirubin [Mass/Vol]LARGENormalNEGATIVEGuernsey Memorial HospitalComment on above:Performed By: #### CBC #### [facility] [address] [place] [address] Bakari KarenBLOODLARGENormalNEGATIVEGuernsey Memorial HospitalComment on above: Performed By: #### CBC #### [facility] [address] [place] [address] Bakari KarenCASTNONE SEENOvidNONE [facility] HospitalComment on above: Performed By: #### CBC #### [facility] [address] [place] [address] Bakari KarenClarity (U)SL CLOUDYNormalGuernsey Memorial HospitalComment on above: Performed By: #### CBC #### [facility] [address] [place] [address] Bakari KarenColor (U)DK. ORANGENormalYWVUMedicine Harrison Community HospitalComment on above:Performed By: #### CBC #### [facility] [address] [place] [address] Bakari KarenCrystals LM Nom (Urine sed)SEENNormalNONE [facility] on above:Performed By: #### CBC #### [facility] [address] [place] [address] Bakari KarenEpithelial cells LM.HPF (Urine sed) [#/Area]MODERATENormCommunity Regional Medical CenterComment on above:Performed By: #### CBC #### [facility] [address] [place] [address] Bakari KarenGlucose [Mass/Vol]NegativeNormalNEGATIVEOhiohealth Grant Medical Center HospitalComment on above:Performed By: #### CBC #### [facility] [address] [place] [address] Bakari KarenKetones Ql (U)NegativeNormalNEGATIVEOhiohealth Grant Medical Center HospitalComment on above:Performed By: #### CBC #### [facility] [address] [place] [address] Bakari KarenMUCOUSTRACENormalNONE SEENGuernsey Memorial HospitalComment on above: Performed By: #### CBC #### [facility] [address] [place] [address] Bakari KarenNitrite Ql (U)NegativeNormalNEGATIVEOhiohealth Grant Medical Center HospitalComment on above:Performed By: #### CBC #### [facility] [address] [place] [address] Bakari KarenpH (Bld)5.3Eutynn5-2CppGuernsey Memorial HospitalComment on above:Performed By: #### CBC #### [facility] [address] [place] [address] Bakari KarenProtein [Mass/Vol]TRACENormCommunity Regional Medical CenterComment on above: Performed By: #### CBC #### [facility] [address] [place] [address] Bakari KarenRBC (Bld) [#/Vol]6-75Hibjxi4-8YsjGuernsey Memorial HospitalComment on above: Performed By: #### CBC #### [facility] [address] [place] [address] Bakari KarenSPEC GRAVITY>=1.498Fdmrgt7.005-<=1.025[facility] Memorial HospitalComment on above:Performed By: #### CBC #### [facility] [address] [place] [address] Bakari KarenUrobilinogen Qn (U)1.0 EU/dlNormHolmes County Joel Pomerene Memorial Hospital HospitalComment on above:Performed By: #### CBC #### [facility] [address] [place], [place] [address] Bakari CampbellWBC (Bld) [#/Vol]5-10NormalNONE SEENGuernsey Memorial HospitalComment on above:Performed By: #### CBC #### [facility] [address] [place], [place] [address] Bakari CampbellWBC (Bld) [#/Vol]NegativeNormalNEGATIVEThe [facility] HospitalComment on above:Performed By: #### CBC #### [facility] [address] [place], [place] [address] Bakari CampbellUS SINGLE QUAD RT UPPERon [id number] SINGLE QUAD RT UPPER Ultrasound abdomen right upper quadrant CLINICAL: Nausea and vomiting for one week. Status post cholecystectomy one year ago. TECHNIQUE: Dedicated transabdominal right upper quadrant ultrasound was performed. FINDINGS: Comparison made to ultrasound dated 12/21/2018. The gallbladder is surgically absent The common bile duct measures up to 6.1 mm in diameter. There is minimal intrahepatic bile duct dilatation. The visualized liver is normal in appearance. There is antegrade flow within the central hepatic veins and hepatopetal flow within the main portal vein. The visualized head and body of the pancreas are normal. The distal pancreatic body and tail are obscured by overlying bowel gas. The right kidney measures 4.4 x 4.7 x 11.2 cm. There is no hydronephrosis in the right kidney. IMPRESSION: 1. Status post cholecystectomy. 2. Normal caliber common bile duct measuring up to 6.1 mm in diameter. There is minimal intrahepatic biliary ductal dilatation, with a normal postoperative limits. 3. Right kidney without hydronephrosis. 4. Normal appearance of the visualized pancreas and liver. Electronically authenticated by: MELISSA TILLEY Date: 2020-01-09 08:29NoHocking Valley Community HospitalXR ABD FLAT UP_PA Leticia [id number] ABD FLAT UP_PA CHXR ABD FLAT UP_PA CH 01/08/2020 8:15 PM EDT INDICATION: UNSPECIFIED ABDOMINAL PAIN TECHNIQUE: Frontal radiographs of the chest and abdomen were obtained. COMPARISON: None. FINDINGS: The lungs are adequately inflated. No consolidations, edema, effusions, or pneumothorax. Heart is normal in size and contour. No dilated loops of bowel. Cholecystectomy clips noted in the right upper quadrant. No free intraperitoneal air visible. No pathologic calcifications identified. No acute abnormalities of the osseous structures. IMPRESSION: No acute findings. Electronically authenticated by: CECILIA MORFIN Date: 2020-01-08 23:03NormalThe [facility] HospitalAMMONIAon [id number] (P) [Mass/Vol]ug/dLCritically low 10-30The [facility] HospitalComment on above:Performed By: #### AMM ####[facility] [address] [place], [place] [address]Rvasor KarenAMYLASE on [id number] [Catalytic activity/Vol]41 U/ULycsnm46-990Otv [facility] HospitalComment on above:Performed By: #### KELSEA CARTER, CMP #### [facility] [address] [place], [place] [address] Bakari KarenCBC AUTO DIFFon [id number] (Bld) [#/Vol]0.0 103/ulNormal 0.0-0.1The [facility] HospitalComment on above:Performed By: #### CBC #### [facility] [address] [place], [place] [address] Bakari KarenBasophils/100 WBC (Bld)0.3 %Normal0.2-2.0The [facility] Comment on above:Performed By: #### CBC #### [facility] [address] [place], [place] [address] Bakari KarenEosinophils (Bld) [#/Vol]0.0 103/ulNormal0.0-0.7The [facility] HospitalComment on above:Performed By: #### CBC #### [facility] [address] [place], [place] [address] Bakari KarenEosinophils/100 WBC (Bld)0.3 %Critically low0.9-7.0The [facility] HospitalComment on above:Performed By: #### CBC #### [facility] [address] [place], [place] [address] Bakari KarenErythrocyte distribution width (RBC) [Ratio]13.0 %Oprrpp25.0-15.0The [facility] HospitalComment on above:Performed By: #### CBC #### [facility] [address] [place] [address] Bakari KarenHematocrit (Bld) [Volume fraction]44.5 %Eomadk64.0-48.0The [facility] HospitalComment on above:Performed By: #### CBC #### [facility] [address] [place] [address] Bakari KarenHemoglobin (Bld) [Mass/Vol]14.5 g/nQLddocm72.0-16.0The [facility] HospitalComment on above:Performed By: #### CBC #### [facility] [address] [place] [address] Bakari KarenIG #0.28 10e3/ulCritically high0.00-0.03The [facility] HospitalComment on above:Performed By: #### CBC #### [facility] [address] [place] [address] Bakari KarenIG %1.8 %Critically high0.0-0.5The [facility] HospitalComment on above:Performed By: #### CBC #### [facility] [address] [place] [address] Bakari KarenLymphocytes (Bld) [#/Vol]11.9 103/ulCritically high1.2-3.8The [facility] HospitalComment on above:Performed By: #### CBC #### [facility] [address] [place] [address] Bakari KarenLymphocytes/100 WBC (Bld)75.1 %Critically high20.5-60.0The [facility] HospitalComment on above:Performed By: #### CBC #### [facility] [address] [place] [address] Bakari KarenMANUAL DIFF REQNONormalThe [facility] HospitalComment on above: Performed By: #### CBC #### [facility] [address] [place] [address] Bakari KarenMCH (RBC) [Entitic mass]27.5 uzLuvaut46.7-34.0The [facility] Comment on above:Performed By: #### CBC #### [facility] [address] [place] [address] Bakari KarenMCHC (RBC) [Mass/Vol]32.6 g/fWIkxmvq03.9-35.2The [facility] Comment on above:Performed By: #### CBC #### [facility] [address] [place] [address] Bakari KarenMCV (RBC) [Entitic vol]84.4 rQYgukbc60.0-99.0The [facility] Comment on above:Performed By: #### CBC #### [facility] [address] [place] [address] Bakari KarenMonocytes (Bld) [#/Vol]1.1 103/ulCritically high0.3-0.8The [facility] HospitalComment on above:Performed By: #### CBC #### [facility] [address] [place] [address] Bakari KarenMonocytes/100 WBC (Bld)6.6 %Normal1.7-12.0The [facility] Comment on above:Performed By: #### CBC #### [facility] [address] [place] [address] Bakari KarenNeutrophils (Bld) [#/Vol]2.5 103/ulNormal1.4-6.5The [facility] HospitalComment on above:Performed By: #### CBC #### [facility] [address] [place] [address] Bakari KarenNeutrophils/100 WBC (Bld)15.9 %Critically low43.0-75.0The [facility] HospitalComment on above:Performed By: #### CBC #### [facility] [address] [place] [address] Bakari KarenPlatelet mean volume (Bld) [Entitic vol]11.6 fLNormal9.5-13.5The [facility] HospitalComment on above:Performed By: #### CBC #### [facility] [address] [place] [address] Bakari KarenPlatelets (Bld) [#/Vol]163 103/idCfjcyh365-471Xiv [facility] Comment on above:Performed By: #### CBC #### [facility] [address] [place] [address] Bakari KarenRBC (Bld) [#/Vol]5.27 106/ulNormal4.20-5.40The [facility] Comment on above:Performed By: #### CBC #### [facility] [address] [place] [address] Bakari KarenWBC (Bld) [#/Vol]15.9 103/ulCritically high4.0-11.0The [facility] HospitalComment on above:Performed By: #### CBC #### [facility] [address] [place] [address] Bakari KarenDIFFERENTIAL MANUALon [id number] LYMPH #1.90 103/ulNormalThe Filer HospitalComment on above:Performed By: #### DIFF, PERSMR #### [facility] [address] [place] [address] Bakari KarenATYPICAL LYMPH %12 %NormalGuernsey Memorial HospitalComment on above: Performed By: #### DIFF, PERSMR #### [facility] [address] [place] [address] Bakari KarenBAND #0.3 103/ulNormal0.0-0.3The [facility] HospitalComment on above: Performed By: #### DIFF, PERSMR #### [facility] [address] [place] [address] Bakari KarenBAND %2 %Normal0-5The [facility] HospitalComment on above:Performed By: #### DIFF, PERSMR #### [facility] [address] [place] [address] Bakari KarenBASOM #0.00 103/ulNormal0.00-0.10The [facility] HospitalComment on above:Performed By: #### DIFF, PERSMR #### [facility] [address] [place] [address] Bakari KarenBASOM %0.0 %Critically low0.2-2.0The [facility] HospitalComment on above:Performed By: #### DIFF, PERSMR #### [facility] [address] [place] [address] Bakari KarenBLAST #NormalThe Filer HospitalComment on above:Performed By: #### DIFF, PERSMR #### [facility] [address] [place] [address] Bakari KarenBLAST %NormalThe [facility] HospitalComment on above:Performed By: #### DIFF, PERSMR #### [facility] [address] [place] [address] Bakari KarenCORRECTED WBCNormal4.0-11.0The [facility] HospitalComment on above: Performed By: #### DIFF, PERSMR #### [facility] [address] [place] [address] Bakari KarenEosinophils (Bld) [#/Vol]0.00 103/ulNormal0.00-0.70The [facility] HospitalComment on above:Performed By: #### DIFF, PERSMR #### [facility] [address] [place] [address] Bakari KarenEosinophils/100 WBC (Bld)0.0 %Critically low0.9-7.0The [facility] HospitalComment on above:Performed By: #### DIFF, PERSMR #### [facility] [address] [place] [address] Bakari KarenLYMPHM #9.01 103/ulCritically high1.20-3.80The [facility] Comment on above:Performed By: #### DIFF, PERSMR #### [facility] [address] [place] [address] Bakari KarenLYMPHM%57.0 %Ydsgfq57.5-60.0The [facility] HospitalComment on above: Performed By: #### DIFF, PERSMR #### [facility] [address] [place] [address] Bakari KarenMETAMYELOCYTE #NormalThe Filer HospitalComment on above:Performed By: #### DIFF, PERSMR #### [facility] [address] [place] [address] Bakari KarenMETAMYELOCYTE %NormalThe Filer HospitalComment on above:Performed By: #### DIFF, PERSMR #### [facility] [address] [place] [address] Bakari KarenMONOM#1.26 103/ulCritically high0.30-0.80The [facility] Comment on above:Performed By: #### DIFF, PERSMR #### [facility] [address] [place] [address] Bakari KarenMONOM%8.0 %Normal1.7-12.0The [facility] HospitalComment on above: Performed By: #### DIFF, PERSMR #### [facility] [address] [place] [address] Bakari KarenMYELOCYTE #NormalThe [facility] HospitalComment on above:Performed By: #### DIFF, PERSMR #### [facility] [address] [place] [address] Bakari KarenMYELOCYTE %NormalThe [facility] HospitalComment on above:Performed By: #### DIFF, PERSMR #### [facility] [address] [place] [address] Bakari KarenNRBCNormalThe [facility] HospitalComment on above:Performed By: #### DIFF, PERSMR #### [facility] [address] [place] [address] Bakari KarenSEG #3.32 103/ulNormal1.40-6.50The [facility] HospitalComment on above:Performed By: #### DIFF, PERSMR #### [facility] [address] [place] [address] Bakari KarenSegmented neutrophils/100 WBC (Bld)21.0 %Critically low43.0-75.0The [facility] HospitalComment on above:Performed By: #### DIFF, PERSMR #### [facility] [address] [place] [address] Bakari KarenWBC (Bld) [#/Vol]15.8 103/ulCritically high4.0-11.0The [facility] on above:Performed By: #### DIFF, PERSMR #### [facility] [address] [place] [address] Bakari HesterenH PYLORI ANTIBODYon 01-08-2020H PYLORINegativeNormalNEGATIVEThe [facility] HospitalCommclaren [facility] on above:Performed By: #### HPYL #### [facility] [address] [place] [address] Bakari KarenLACTATE/LACTIC ACIDon 40-34-9926Feyhybn [Moles/Vol]1.7 mmol/LNormal 0.7-2.0The [facility] on above:Performed By: #### LACT #### [facility] [address] [place] [address] Bakari KarenLIPASEon [id number] [Catalytic activity/Vol]102.0 U/LNormal 23.0-300.0The [facility] on above:Performed By: #### RAUL, LIPA, CMP #### [facility] [address] [place] [address] Bakari Eren, CVD-19 ([facility])on 08-31-0618ZBQ FROM REF LAB01/10/20[facility] on above:Performed By: #### CBC #### [facility] [address] [place] [address] Bakari HesterZenyT TO REF LAB01/09/20[facility] on above: Performed By: #### CBC #### [facility] [address] [place] [address] Bakari KarenPERIPHERAL SMEARon 71-30-3775Hkciqlenxbp Cyto stain Nom (Cvx/Vag) [ID]DR. WALKER ALEGREVeterans Health AdministrationCommclaren [facility] on above:Result Comment: LEUKOCYTOSIS WITH REACTIVE LYMPHOCYTOSIS. RULE OUT RAYMUNDO ORELLANA VIRUS OR OTHER VIRAL PROCESSPerformed By: #### DIFF, PERSMR #### [facility] [address] [address] Bakari KarenPROF 14(COMP METB)on 28-36-9480Hgvlvbe [Mass/Vol]3.9 g/dLNormal 3.5-5.0The [facility] HospitalComment on above:Performed By: #### RAUL, LIPA, CMP #### [facility] [address] [address] Bakari KarenAlbumin/Globulin [Mass ratio]1.0 {ratio}NormalThe [facility] on above:Performed By: #### RAUL, LIPA, CMP #### [facility] [address] [place] [address] Bakari KarenALP [Catalytic activity/Vol]443 U/LCritically caae92-460Kgy [facility] HospitalComment on above:Performed By: #### RAUL, LIPA, CMP #### [facility] [address] [place] [address] Bakari KarenALT [Catalytic activity/Vol]241 U/LCritically high9-52The [facility] HospitalComment on above:Performed By: #### RAUL, LIPA, CMP #### [facility] [address] [address] Bakari KarenAnion gap [Moles/Vol]14.2 mmol/LNormalThe [facility] HospitalComment on above:Performed By: #### RAUL, LIPA, CMP #### [facility] [address] [place] [address] Bakari KarenAST [Catalytic activity/Vol]155 U/LCritically fnsw94-31Ajo [facility] HospitalComment on above:Performed By: #### RAUL, LIPA, CMP #### [facility] [address] [place] [address] Bakari KarenBilirubin Ql (U)6.4 mg/dLCritically high0.2-1.3The [facility] Comment on above:Performed By: #### RAUL, LIPA, CMP #### [facility] [address] [place] [address] Bakari KarenCalcium [Mass/Vol]9.6 mg/dLNormal8.4-10.2The [facility] Comment on above:Performed By: #### RAUL, LIPA, CMP #### [facility] [address] [place] [address] Bakari KarenChloride [Moles/Vol]98 mmol/UXnnace36-968UmvGuernsey Memorial Hospital Comment on above:Performed By: #### RAUL, LIPA, CMP #### [facility] [address] [place] [address] Bakari KarenCO2 [Moles/Vol]27.1 mmol/QThqste68.0-30.0[facility] Comment on above:Performed By: #### RAUL, LIPA, CMP #### [facility] [address] [place] [address] Bakari KarenCreatinine [Mass/Vol]1.10 mg/dLCritically high0.52-1.04[facility] HospitalComment on above:Performed By: #### RAUL, LIPA, CMP #### [facility] [address] [place] [address] Bakari KarenEGFR-AF AFGHAN>60Normal>=60The [facility] HospitalComment on above: Performed By: #### RAUL, LIPA, CMP #### [facility] [address] [place] [address] Bakari KarenEGFR-NON AF AFGHAN>60Normal>=60[facility] HospitalComment on above:Performed By: #### RAUL, LIPA, CMP #### [facility] [address] [place] [address] Bakari KarenGlobulin (S) [Mass/Vol]3.9 g/dLNormalThe [facility] HospitalComment on above:Performed By: #### RAUL, LIPA, CMP #### [facility] [address] [place] [address] Bakari KarenGlucose [Mass/Vol]93 mg/zNIszixo98-241IibGuernsey Memorial HospitalComment on above:Performed By: #### RAUL, LIPA, CMP #### [facility] [address] [place] [address] Bakari KarenPotassium [Moles/Vol]3.3 mmol/LCritically low3.4-5.0The [facility] HospitalComment on above:Performed By: #### KELSEA CARTER, CMP #### [facility] [address] [address] Bakari KarenProtein [Mass/Vol]7.8 g/dLNormal6.1-8.2The [facility] HospitalComment on above:Performed By: #### KELSEA CARTER, CMP #### [facility] [address] [address] Bakari KarenSodium [Moles/Vol]136 mmol/LCritically gka718-778Kgu [facility] HospitalComment on above:Performed By: #### KELSEA CARTER, CMP #### [facility] [address] [place] [address] Bakari KarenUrea nitrogen [Mass/Vol]16.0 mg/dLNormal6.4-19.3The [facility] HospitalComment on above:Performed By: #### KELSEA CARTER, CMP #### [facility] [address] [place] [address] Bakari KarenUrea nitrogen/Creatinine [Mass ratio]14.5 mg/mgNormalThe [facility] HospitalComment on above:Performed By: #### KELSEA CARTER, CMP #### [facility] [address] [place] [address] Bakari KarenUS EXT NON VASC LIMITED RTon [id number] EXT NON VASC LIMITED RT Patient: BOGDAN KEEN Exam Date: 02/20/2019 : 2000 Gender:F Ordering : DR ALEXANDREA FOY . Admission #: [id number] Family : BROOKE DELA [employer] Order #: [id number] CLICK HERE TO VIEW EXAM RADIOLOGY REPORT PROCEDURE: ULTRASOUND EXT NON VASCULAR LIMITED RIGHT COMPARISON: None. INDICATIONS: Acute pain in right arm TECHNIQUE: Sonographic imaging was performed of the clinically requested area of interest. FINDINGS: REGION IMAGED: Lump in the upper right extremity. MASSES: No discernible mass in the area of clinical concern. FLUID: No abnormal fluid collections. OTHER: Thrombosed vein within the upper arm suspected represent the basilic vein. CONCLUSION: 1. CLOT WITHIN A RIGHT UPPER EXTREMITY VEIN SUSPECTED TO BE THE BASILIC VEIN. DEDICATED ULTRASOUND EVALUATION OF THE RIGHT UPPER EXTREMITY VEINS FOR DEEP VEIN THROMBOSIS IS RECOMMENDED. Dr. Foy's office has been notified and further evaluation will be performed. Dictated by: Grey Rizzo M.D. on 02/20/2019 at 14:40 Approved by: Grey Rizzo M.D. on 02/20/2019 at 14:42[facility] Health AdministrationUS VENOUS DOPPLER R Leanna [id number] VENOUS DOPPLER R ARMPatient: BOGDAN KEEN Exam Date: 02/20/2019 : 2000 Gender:F Ordering : DR ALEXANDREA FOY . 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 INDICATIONS: Acute pain in right arm TECHNIQUE: Upper extremity lopez scale and Duplex Doppler evaluation of the deep venous system, as well as the jugular and subclavian veins. FINDINGS: REGION: Right upper extremity. THROMBI: Chronic appearing thrombus near the antecubital fossa suspected to be within the cephalic vein. COMPRESSIBILITY: Non-compressible AND partially compressible segments. FLOW: Normal waveform and antegrade flow between 5 and 20 cm/s. *Exam performed in accordance with [facility] practice guidelines- Peripheral venous ultrasound, December 11, 2009. CONCLUSION: 1. No deep vein thrombosis within the right upper extremity. 2. Superficial thrombophlebitis within the right upper extremity accounting for the patient's palpable lump. Dictated by: Grey Rizzo M.D. on 02/20/2019 at 14:43 Approved by: Grey Rizzo M.D. on 02/20/2019 at 14:46[facility] Health AdministrationBilirubin, Directon [id number].conjugated mass conc0.7 mg/dL High0 - 0.4 mg/dLOhioHealthInterpretation and review of laboratory results AbnormalOhioHealthCBCon 69-57-4244Ylkvoiebvmf distribution width Entitic volume (RBC)13.0 %11.6 - 14.8 %OhioHealthHematocrit Volume Fraction (Bld)34.0 %Low36 - 46 %[facility] HospitalHemoglobin mass conc (Bld)10.7 g/dLLow12 - 16 g/dLMercy Health Tiffin Hospital Interpretation and review of laboratory resultsAbnormalOUniversity Hospitals Ahuja Medical CenterH Entitic mass (RBC)27.9 pg25 - 35 pgOhioPremier Health Upper Valley Medical CenterHC mass conc (RBC)31.5 g/dL31 - 37 g/dL [facility] Entitic volume (RBC)88.8 fL78 - 102 fLOhioHealthNucleated RBC #/vol (Bld)0.00 10*3/uLOhioHealthNucleated RBC/100 WBC Ratio (Bld)0.0 % [facility] HospitalPlatelet mean volume Entitic volume (Bld)11.2 fL9 - 15.5 fLOhioHealth Platelets #/vol (Bld)180 10*3/uLOhioHealthRBC #/vol (Bld)3.83 10*6/uLLow OhioHealthWBC #/vol (Bld)8.72 10*3/uLOhioHealthComprehensive Metabolic Panelon 50-58-8250Vprmode mass conc3.4 g/dL3.2 - 4.5 g/dLOhioHealthALP enzyme act/hkk976 U/L40 - 140 U/LOhioHealthALT enzyme act/vol79 U/LHigh0 - 40 U/LOhioHealthAnion gap molar conc19 mmol/L10 - 20 mmol/LOhioHealthAST enzyme act/vol50 U/LHigh0 - 45 U/LOhioHealthBilirubin mass conc1.5 mg/dLHigh0 - 1.3 mg/dLOhioHealthCalcium mass conc9.0 mg/dL8.4 - 10.2 mg/dLOhioHealthChloride molar kdct176 mmol/L98 - 108 mmol/LOhioHealthCreatinine mass conc0.82 mg/dL0.5 - 1 mg/dLAkioHealth GFR/1.73 sq M predicted among non-blacks MDRD vol rate/area (S/P/Bld)The eGFR should be used for monitoring renal function only and not for medication dosing. [facility] HospitalGFR/1.73 sq M.predicted CKD-EPI vol rate/area (S/P/Bld)105>=60 mL/min/1.73 a0OwpqHogzauQvuoniq mass pnbn619 mg/oNKlhi45 - 99 mg/dLOhioHealth HCO3 molar conc22 mmol/L21 - 32 mmol/LOhioHealthInterpretation and review of laboratory resultsAbnormalOhioHealthPotassium molar conc3.7 mmol/L3.5 - 5.1 mmol/LOhioHealthProtein mass conc5.7 g/dLLow6 - 8 g/dLOhioHealthSodium molar mrua578 mmol/L135 - 145 mmol/LOhioHealthUrea nitrogen mass conc7 mg/dLLow8 - 25 mg/dLOhioHealthUrea nitrogen/Creatinine mass ratio8.5 mg/mgLowOhioHealth Bilirubin, Directon [id number].conjugated mass conc1.2 mg/dLHigh0 - 0.4 mg/dLOhioHealthInterpretation and review of laboratory resultsAbnormalOhioHealth CBCon 99-15-1459Ablfvomutlw distribution width Entitic volume (RBC)12.8 %11.6 - 14.8 %[facility] HospitalHematocrit Volume Fraction (Bld)33.3 %Low36 - 46 %[facility] Hemoglobin mass conc (Bld)10.9 g/dLLow12 - 16 g/dLOhioHealthInterpretation and review of laboratory resultsAbnormalOhiMTealthMCH Entitic mass (RBC)27.9 pg25 - 35 pgOhioHealthMCHC mass conc (RBC)32.7 g/dL31 - 37 g/dLOhioHealthMCV Entitic volume (RBC)85.4 fL78 - 102 fLOhioHealthNucleated RBC #/vol (Bld)0.00 10*3/uL OhioGeorgetown Behavioral HospitalNucleated RBC/100 WBC Ratio (Bld)0.0 %[facility] HospitalPlatelet mean volume Entitic volume (Bld)11.8 fL9 - 15.5 fLOhioHealthPlatelets #/vol (Bld)225 10*3/uL OhioHealthRBC #/vol (Bld)3.90 10*6/uLLowOhioHealthWBC #/vol (Bld)5.96 10*3/uL [facility] HospitalComprehensive Metabolic Panelon [id number] mass conc3.9 g/dL3.2 - 4.5 g/dLOhioHealthALP enzyme act/uzp684 U/L40 - 140 U/LOhioHealthALT enzyme act/vol84 U/LHigh0 - 40 U/LOhioHealthAnion gap molar conc17 mmol/L10 - 20 mmol/L OhioHealthAST enzyme act/vol39 U/L0 - 45 U/LOhioHealthBilirubin mass conc2.3 mg/dLHigh0 - 1.3 mg/dLOhioHealthCalcium mass conc9.2 mg/dL8.4 - 10.2 mg/dL OhioHealthChloride molar mvpe712 mmol/L98 - 108 mmol/LOhioHealthCreatinine mass conc0.84 mg/dL0.5 - 1 mg/dLOhioHealthGFR/1.73 sq M predicted among non-blacks MDRD vol rate/area (S/P/Bld)The eGFR should be used for monitoring renal function only and not for medication dosing.OhioHealthGFR/1.73 sq M.predicted CKD-EPI vol rate/area (S/P/Bld)102>=60 mL/min/1.73 w4QgovRwufinFdfpkkc mass conc 76 mg/dL65 - 99 mg/dLOhioHealthHCO3 molar conc24 mmol/L21 - 32 mmol/LOhioHealth Interpretation and review of laboratory resultsAbnormalOhioHealthPotassium molar conc4.0 mmol/L3.5 - 5.1 mmol/LOhioHealthProtein mass conc5.9 g/dLLow6 - 8 g/dL OhioHealthSodium molar kmwe408 mmol/L135 - 145 mmol/LOhioHealthUrea nitrogen mass conc8 mg/dL8 - 25 mg/dLOhioHealthUrea nitrogen/Creatinine mass ratio9.5 mg/mgLowOhioHealthLipaseon 56-53-9235Mlixhqpbcjlzim and review of laboratory resultsAbnormalOhioHealthLipase enzyme act/yav583 U/LHigh15 - 65 U/LOhioHealth hCG, Serum, Qualitativeon 85-77-1985NIJ.beta subunit ( test) QlNegative NegativeOhioHealthInterpretation and review of laboratory resultsNormal OhioHealthNegative: The result is less than or equal to 5 mIU/mL of HCG. [facility] HospitalBilirubin, Directon [id number].conjugated mass conc3.8 mg/dL High0 - 0.4 mg/dLOhioHealthInterpretation and review of laboratory results AbnormalOhioHealthCBCon 37-86-0636Mulnmjblrrj distribution width Entitic volume (RBC)13.0 %11.6 - 14.8 %[facility] HospitalHematocrit Volume Fraction (Bld)35.0 %Low36 - 46 %[facility] HospitalHemoglobin mass conc (Bld)11.2 g/dLLow12 - 16 g/dLAkioGeorgetown Behavioral Hospital Interpretation and review of laboratory resultsAbnormalOhiJefferson Memorial HospitalH Entitic mass (RBC)28.2 pg25 - 35 pgMercy Health Tiffin HospitalMCHC mass conc (RBC)32.0 g/dL31 - 37 g/dL [facility] HospitalV Entitic volume (RBC)88.2 fL78 - 102 fLOhioHealthNucleated RBC #/vol (Bld)0.00 10*3/uLOhioHealthNucleated RBC/100 WBC Ratio (Bld)0.0 % [facility] HospitalPlatelet mean volume Entitic volume (Bld)11.5 fL9 - 15.5 fLOhioHealth Platelets #/vol (Bld)213 10*3/uLOhioHealthRBC #/vol (Bld)3.97 10*6/uLLow OhioHealthWBC #/vol (Bld)4.93 10*3/uLOhioHealthCT Abdomen Pelvis With IV Contrast Onlyon [id number]: CT OF THE ABDOMEN AND PELVIS WITH CONTRAST 12/22/2018 TECHNIQUE: CT of the abdomen and pelvis was performed with the administration of intravenous contrast. Multiplanar reformatted images are provided for review. Dose modulation, iterative reconstruction, and/or weight based adjustment of the mA/kV was utilized to reduce the radiation dose to as low as reasonably achievable. COMPARISON: Correlation is made to ultrasound of the abdomen dated 12/21/2018. HISTORY: ORDERING SYSTEM PROVIDED HISTORY: Epigastric, RUQ, RLQ pain; TECHNOLOGIST PROVIDED HISTORY: Reason for Exam: Epigastric, RUQ, RLQ pain Illness/Other Acuity: Acute Type of Encounter: Initial Additional signs and symptoms: vomit ORDERING SYSTEM PROVIDED DIAGNOSIS CODES: R10.9 Abdominal pain, unspecified abdominal location R11.2 Nausea and vomiting, intractability of vomiting not specified, unspecified vomiting type R03.0 Elevated blood pressure reading E80.6 Hyperbilirubinemia R74.0 Transaminitis R79.89 Elevated serum creatinine Acute right upper and right lower quadrant abdominal pain. Initial encounter. FINDINGS: Lower Chest: Lung bases are clear. Organs: Mild intra- and extrahepatic ductal dilatation, as was seen on recent ultrasound. Known stones in the gallbladder are better seen by ultrasound. Portal vein and splenic vein opacify normally. No focal hepatic lesion. Spleen, pancreas, adrenal glands, and kidneys are unremarkable. Kidneys enhance symmetrically. No hydronephrosis. GI/Bowel: Moderate volume of stool in the colon. No evidence of appendiceal inflammation. There is no evidence of bowel obstruction or free intraperitoneal air. Pelvis: Uterus and adnexa are grossly unremarkable. Bladder is underdistended. No inguinal or pelvic adenopathy. Peritoneum/Retroperitoneum: Abdominal aortic caliber is normal. No retroperitoneal adenopathy. Bones/Soft Tissues: No aggressive lytic or blastic bony lesion. Bilateral L5 pars defects with minimal anterolisthesis of L5 on S1. [facility], [facility] - 12/23/2018 3:04 AM EDT EXAMINATION: CT OF THE ABDOMEN AND PELVIS WITH CONTRAST 12/22/2018 TECHNIQUE: CT of the abdomen and pelvis was performed with the administration of intravenous contrast. Multiplanar reformatted images are provided for review. Dose modulation, iterative reconstruction, and/or weight based adjustment of the mA/kV was utilized to reduce the radiation dose to as low as reasonably achievable. COMPARISON: Correlation is made to ultrasound of the abdomen dated 12/21/2018. HISTORY: ORDERING SYSTEM PROVIDED HISTORY: Epigastric, RUQ, RLQ pain; TECHNOLOGIST PROVIDED HISTORY: Reason for Exam: Epigastric, RUQ, RLQ pain Illness/Other Acuity: Acute Type of Encounter: Initial Additional signs and symptoms: vomit ORDERING SYSTEM PROVIDED DIAGNOSIS CODES: R10.9 Abdominal pain, unspecified abdominal location R11.2 Nausea and vomiting, intractability of vomiting not specified, unspecified vomiting type R03.0 Elevated blood pressure reading E80.6 Hyperbilirubinemia R74.0 Transaminitis R79.89 Elevated serum creatinine Acute right upper and right lower quadrant abdominal pain. Initial encounter. FINDINGS: Lower Chest: Lung bases are clear. Organs: Mild intra- and extrahepatic ductal dilatation, as was seen on recent ultrasound. Known stones in the gallbladder are better seen by ultrasound. Portal vein and splenic vein opacify normally.No focal hepatic lesion. Spleen, pancreas, adrenal glands, and kidneys are unremarkable. Kidneys enhance symmetrically. No hydronephrosis. GI/Bowel: Moderate volume of stool in the colon. No evidence of appendiceal inflammation. There is no evidence of bowel obstruction or free intraperitoneal air. Pelvis: Uterus and adnexa are grossly unremarkable. Bladder is underdistended. No inguinal or pelvic adenopathy. Peritoneum/Retroperitoneum: Abdominal aortic caliber is normal. No retroperitoneal adenopathy. Bones/Soft Tissues: No aggressive lytic or blastic bony lesion. Bilateral L5 pars defects with minimal anterolisthesis of L5 on S1. IMPRESSION: 1. Mild intra- and extrahepatic ductal dilatation, as was seen on recent ultrasound of the right upper quadrant. No identifiable cause. Known gallstones were better seen by ultrasound. 2. No finding to account for patient's right lower quadrant abdominal pain. Normal appendix. 3. Bilateral L5 pars defects with minimal anterolisthesis of L5 on S1. This can be a cause of chronic low back pain in some patients. [facility] Workstation ID: [id number]. Mild intra- and extrahepatic ductal dilatation, as was seen on recent ultrasound of the right upper quadrant. No identifiable cause. Known gallstones were better seen by ultrasound. 2. No finding to account for patient's right lower quadrant abdominal pain. Normal appendix. 3. Bilateral L5 pars defects with minimal anterolisthesis of L5 on S1. This can be a cause of chronic low back pain in some patients. [facility] Workstation ID: [id number] Metabolic Panelon 12-23-2018 Albumin mass conc3.7 g/dL3.2 - 4.5 g/dLOhioHealthALP enzyme act/wir736 U/L40 - 140 U/LOhioHealthALT enzyme act/vol93 U/LHigh0 - 40 U/LOhioHealthAnion gap molar conc16 mmol/L10 - 20 mmol/LOhioHealthAST enzyme act/vol37 U/L0 - 45 U/L OhioHealthBilirubin mass conc5.1 mg/dLHigh0 - 1.3 mg/dLOhioHealthCalcium mass conc9.2 mg/dL8.4 - 10.2 mg/dLOhioHealthChloride molar sbnp625 mmol/L98 - 108 mmol/LOhioHealthCreatinine mass conc0.79 mg/dL0.5 - 1 mg/dLOhioHealthGFR/1.73 sq M predicted among non-blacks MDRD vol rate/area (S/P/Bld)The eGFR should be used for monitoring renal function only and not for medication dosing.[facility] GFR/1.73 sq M.predicted CKD-EPI vol rate/area (S/P/Bld)110>=60 mL/min/1.73 m2 OhioHealthGlucose mass conc69 mg/dL65 - 99 mg/dLOhioHealthHCO3 molar conc24 mmol/L21 - 32 mmol/LOhioHealthInterpretation and review of laboratory results AbnormalOhioHealthPotassium molar conc4.4 mmol/L3.5 - 5.1 mmol/LOhioHealth Protein mass conc6.0 g/dL6 - 8 g/dLOhioHealthSodium molar oitz364 mmol/L135 - 145 mmol/LOhioHealthUrea nitrogen mass conc9 mg/dL8 - 25 mg/dLOhioHealthUrea nitrogen/Creatinine mass ratio11.4 mg/mgOhioHealthLipaseon 12-23-2018 Interpretation and review of laboratory resultsNormalOhioHealthLipase enzyme act/vol16 U/L15 - 65 U/LOhioHealthXR ERCPon [id number] ERCP images. Please refer to the procedure report for further details. Workstation ID: [id number], [facility] - 12/23/2018 1:50 PM EDT EXAMINATION: SPOT IMAGE(S) FROM AN ERCP COMPARISON: None HISTORY: ORDERING SYSTEM PROVIDED HISTORY: stones; TECHNOLOGIST PROVIDED HISTORY: Reason for Exam: stones Illness/Other Acuity: Acute Type of Encounter: Ongoing Additional signs and symptoms: none Fluoro dose in mGy?:. ORDERING SYSTEM PROVIDED DIAGNOSIS CODES: R10.9 Abdominal pain, unspecified abdominal location R11.2 Nausea and vomiting, intractability of vomiting not specified, unspecified vomiting type R03.0 Elevated blood pressure reading E80.6 Hyperbilirubinemia R74.0 Transaminitis R79.89 Elevated serum creatinine K80.71 Calculus of gallbladder and bile duct with obstruction without cholecystitis FLUOROSCOPY DOSE AND TYPE OR TIME AND EXPOSURES: Ka,r = 19.26 mGy 83.9 seconds FINDINGS: Endoscopy and cannulation of the major papilla was performed by the gastroenterology service under the supervision of OSMIN BATISTA . Spot views are presented for interpretation. Contrast is identified in the extrahepatic bile ducts. No intraluminal filling defects or strictures are identified in the common bile duct, common hepatic duct or visualized portions of the intrahepatic bile ducts. No contrast extravasation is identified. IMPRESSION: Unremarkable ERCP images. Please refer to the procedure report for further details. Workstation ID: [id number]: SPOT IMAGE(S) FROM AN ERCP COMPARISON: None HISTORY: ORDERING SYSTEM PROVIDED HISTORY:stones; TECHNOLOGIST PROVIDED HISTORY: Reason for Exam: stones Illness/Other Acuity: Acute Type of E ncounter: Ongoing Additional signs and symptoms: none Fluoro dose in mGy?: ORDERING SYSTEM PROVIDED DIAGNOSIS CODES: R10.9 Abdominal pain, unspecified abdominal location R11.2 Nausea and vomiting, intractability of vomiting not specified, unspecified vomiting type R03.0 Elevated blood pressurereading E80.6 Hyperbilirubinemia R74.0 Transaminitis R79.89 Elevated serum creatinine K80.71 Calculus of gallbladder and bile duct with obstruction without cholecystitis FLUOROSCOPY DOSE AND TYPE OR TIME AND EXPOSURES: Ka,r = 19.26 mGy 83.9 seconds FINDINGS: Endoscopy and cannulation of the major papilla was performed by the gastroenterology service under the supervision of OSMIN BATISTA . Spot views are presented for interpretation. Contrast is identified in the extrahepatic bile ducts. No intraluminal filling defects or strictures are identified in the common bile duct, common hepaticduct or visualized portions of the intrahepatic bile ducts. No contrast extravasation is identified.[facility] ERCPEXAMINATION: SPOT IMAGE(S) FROM AN ERCP COMPARISON: None HISTORY: ORDERING SYSTEM PROVIDED HISTORY: stones; TECHNOLOGIST PROVIDED HISTORY: Reason for Exam: stones Illness/Other Acuity: Acute Type of Encounter: Ongoing Additional signs and symptoms: none Fluoro dose in mGy?: ORDERING SYSTEM PROVIDED DIAGNOSIS CODES: R10.9 Abdominal pain, unspecified abdominal location R11.2 Nausea and vomiting, intractability of vomiting not specified, unspecified vomiting type R03.0 Elevated blood pressure reading E80.6 Hyperbilirubinemia R74.0 Transaminitis R79.89 Elevated serum creatinine K80.71 Calculus of gallbladder and bile duct with obstruction without cholecystitis FLUOROSCOPY DOSE AND TYPE OR TIME AND EXPOSURES: Gabbier = 19.26 mGy 83.9 seconds FINDINGS: Endoscopy and cannulation of the major papilla was performed by the gastroenterology service under the supervision of OSMIN BATISTA . Spot views are presented for interpretation. Contrast is identified in the extrahepatic bile ducts. No intraluminal filling defects or strictures are identified in the common bile duct, common hepatic duct or visualized portions of the intrahepatic bile ducts. No contrast extravasation is identified. IMPRESSION: Unremarkable ERCP images. Please refer to the procedure report for further details. Workstation ID: [id number] Dictated by: ANAND HUDSON on SunDec 23, 2018 1:47:37 PM EDT Transcribed by: ANAND HUDSON on SunDec 23, 2018 1:47:37 PM EDT Finalized by: ANAND HUDSON on SunDec 23, 2018 1:47:37 PM EDTNoSt. Joseph's Medical CenterComment on above:Order Comment: Reason for exam?:stones Injury/Trauma or Illness?:Illness/Other How long have you had these symptoms (acute/chronic)?:Acute Type of Exam?:Ongoing Additional signs and symptoms?:none Fluoro time in minutes:1.4 Fluoro dose in mGy?:19.26XR FLUOROSCOPY TIMEon [id number] FLUOROSCOPY TIMEThis is an auto finalized result. Please refer to patient chart for further information. further information. further information.[facility] HealthComment on above:Order Comment: Reason for exam?:intra op Injury/Trauma or Illness?:Illness/Other How long have you had these symptoms (acute/chronic)?:Acute Type of Exam?:Subsequent/Follow-up Additional signs and symptoms?:stones Fluoro time in minutes:1.4 Fluoro dose in mGy?:19.26XR Fluoroscopy Timeon [id number] is an auto finalized result. Please refer to patient chart for further information. [facility]HealthAcetaminophen Levelon 34-99-2456Uuwcufarsxxvt mass conc<5.0[facility] Interpretation and review of laboratory resultsNormalOhioHealthBasic Metabolic Panelon 55-59-5120Zbuqd gap molar conc17 mmol/L10 - 20 mmol/LOhioHealthCalcium mass conc9.3 mg/dL8.4 - 10.2 mg/dLOhioHealthChloride molar uyqp487 mmol/L98 - 108 mmol/LOhioHealthCreatinine mass conc0.87 mg/dL0.5 - 1 mg/dLConnecticutHealth GFR/1.73 sq M predicted among non-blacks MDRD vol rate/area (S/P/Bld)The eGFR should be used for monitoring renal function only and not for medication dosing. [facility] HospitalGFR/1.73 sq M.predicted CKD-EPI vol rate/area (S/P/Bld)98>=60 mL/min/1.73 j2EojiCcfkfuHfipeqo mass conc86 mg/dL65 - 99 mg/dLOhioHealthHCO3 molar conc23 mmol/L21 - 32 mmol/LOhioHealthInterpretation and review of laboratory resultsNormalOBlanchard Valley Health System Bluffton HospitalealthPotassium molar conc3.9 mmol/L3.5 - 5.1 mmol/L OhioGeorgetown Behavioral HospitalSodium molar ystg594 mmol/L135 - 145 mmol/LOhioHealthUrea nitrogen mass conc13 mg/dL8 - 25 mg/dLAkioHealthUrea nitrogen/Creatinine mass ratio14.9 mg/mgOhioHealthCBCon 89-95-3505Pjiuugxvepa distribution width Entitic volume (RBC)12.9 %11.6 - 14.8 %[facility] HospitalHematocrit Volume Fraction (Bld)35.2 %Low36 - 46 %[facility] HospitalHemoglobin mass conc (Bld)11.3 g/dLLow12 - 16 g/dLMercy Health Tiffin Hospital Interpretation and review of laboratory resultsAbnormalOhiCincinnati VA Medical CenterMCH Entitic mass (RBC)27.9 pg25 - 35 pgOhioHealthMCHC mass conc (RBC)32.1 g/dL31 - 37 g/dL [facility] HospitalV Entitic volume (RBC)86.9 fL78 - 102 fLOhioHealthNucleated RBC #/vol (Bld)0.00 10*3/uLOhioHealthNucleated RBC/100 WBC Ratio (Bld)0.0 % [facility] HospitalPlatelet mean volume Entitic volume (Bld)11.0 fL9 - 15.5 fLOhioHealth Platelets #/vol (Bld)233 10*3/uLOhioHealthRBC #/vol (Bld)4.05 10*6/uLLow OhioHealthWBC #/vol (Bld)6.98 10*3/uLOhioHealthCT ABDOMEN PELVIS WITH IV CONTRAST ONLYon [id number] ABDOMEN PELVIS WITH IV CONTRAST ONLYEXAMINATION: CT OF THE ABDOMEN AND PELVIS WITH CONTRAST 12/22/2018 TECHNIQUE: CT of the abdomen and pelvis was performed with the administration of intravenous contrast. Multiplanar reformatted images are provided for review. Dose modulation, iterative reconstruction, and/or weight based adjustment of the mA/kV was utilized to reduce the radiation dose to as low as reasonably achievable. COMPARISON: Correlation is made to ultrasound of the abdomen dated 12/21/2018. HISTORY: ORDERING SYSTEM PROVIDED HISTORY: Epigastric, RUQ, RLQ pain; TECHNOLOGIST PROVIDED HISTORY: Reason for Exam: Epigastric, RUQ, RLQ pain Illness/Other Acuity: Acute Type of Encounter: Initial Additional signs and symptoms: vomit ORDERING SYSTEM PROVIDED DIAGNOSIS CODES: R10.9 Abdominal pain, unspecified abdominal location R11.2 Nausea and vomiting, intractability of vomiting not specified, unspecified vomiting type R03.0 Elevated blood pressure reading E80.6 Hyperbilirubinemia R74.0 Transaminitis R79.89 Elevated serum creatinine Acute right upper and right lower quadrant abdominal pain. Initial encounter. FINDINGS: Lower Chest: Lung bases are clear. Organs: Mild intra- and extrahepatic ductal dilatation, as was seen on recent ultrasound. Known stones in the gallbladder are better seen by ultrasound. Portal vein and splenic vein opacify normally. No focal hepatic lesion. Spleen, pancreas, adrenal glands, and kidneys are unremarkable. Kidneys enhance symmetrically. No hydronephrosis. GI/Bowel: Moderate volume of stool in the colon. No evidence of appendiceal inflammation. There is no evidence of bowel obstruction or free intraperitoneal air. Pelvis: Uterus and adnexa are grossly unremarkable. Bladder is underdistended. No inguinal or pelvic adenopathy. Peritoneum/Retroperitoneum: Abdominal aortic caliber is normal. No retroperitoneal adenopathy. Bones/Soft Tissues: No aggressive lytic or blastic bony lesion. Bilateral L5 pars defects with minimal anterolisthesis of L5 on S1. IMPRESSION: 1. Mild intra- and extrahepatic ductal dilatation, as was seen on recent ultrasound of the right upper quadrant. No identifiable cause. Known gallstones were better seen by ultrasound. 2. No finding to account for patient's right lower quadrant abdominal pain. Normal appendix. 3. Bilateral L5 pars defects with minimal anterolisthesis of L5 on S1. This can be a cause of chronic low back pain in some patients. [facility] Workstation ID: [id number] Dictated by: LENNY VARGAS on SunDec 22, 2018 12:32:41 AM EDT Transcribed by: LOBO LIM on SunDec 22, 2018 12:58:50 AM EDT Finalized by: LENNY VARGAS on SunDec 23, 2018 3:02:12 AM EDTMemorial Satilla HealthComment on above:Order Comment: Reason for exam?:Epigastric, RUQ, RLQ pain Injury/Trauma or Illness?:Illness/Other How long have you had these symptoms (acute/chronic)?:Acute Type of Exam?:Initial Additional signs and symptoms?:vomitCalcium, Ionizedon 77-48-1081Mtkmntx.ionized mass conc5.2 mg/dL4.5 - 5.3 mg/dLOhioHealthInterpretation and review of laboratory resultsNormalOhioHealthHEPATITIS PANEL, ACUTEon 87-35-5520SXI IgM Ql (S)NegativeNegativeOhioHealthHBV core IgM Ql (S)NegativeNegativeOhioHealthHBV surface Ag Ql (S)NegativeNegativeOhioHealthHCV Ab Ql (S)NegativeNegative OhioHealthInterpretation and review of laboratory resultsNormalOhioHealthTest performed using Colin MIRIAM immunoassay systemOhioHealthHepatic Function Panelon 22-77-6241Xaphqcg mass conc4.1 g/dL3.2 - 4.5 g/dLOhioHealthALP enzyme act/dvu554 U/L40 - 140 U/LOhioHealthALT enzyme act/suu564 U/LHigh0 - 40 U/LOhioHealthAST enzyme act/vol72 U/LHigh0 - 45 U/LOhioHealthBilirubin mass conc4.8 mg/dLHigh0 - 1.3 mg/dLOhioHealthBilirubin.conjugated mass conc4.0 mg/dLHigh0 - 0.4 mg/dL OhioHealthInterpretation and review of laboratory resultsAbnormalOhioHealth Protein mass conc6.4 g/dL6 - 8 g/dLOhioHealthMagnesium Levelon 12-22-2018 Magnesium mass conc2.0 mg/dL1.6 - 2.4 mg/dLOhioHealthOtheron 12-22-2018 Interpretation and review of laboratory resultsNormalOhioHealthPhosphoruson 45-61-0432Jehdpfmyo mass conc4.3 mg/dL2.7 - 4.5 mg/dLOhioHealthURINALYSISon 78-50-5881Eehnocwv Auto Ql (U)None SeenNone Seen /hpfOhioHealthBilirubin Ql (U) PositiveAbnormalNegativeOhioHealthComment on above:False positive urine bilirubins can occur in the setting of a large amount of hemoglobin and seconda ry to medications including anti-inflammatory agents, rifampin, and pyridium. Clarity Refractometry automated Nom (U)CloudyAbnormalClearOhioHealthColor Nom (U)AmberAbnormalColorless, YellowOhioHealthCrystals.amorphous Computer assisted #/area (U)FewAbnormalNone Seen, Rare /hpfOhioHealthEpithelial cells.squamous Auto #/area (Urine sed)7HighOhioHealthGlucose Automated test strip mass conc (U) NegativeNegative mg/dLOhioHealthHemoglobin Automated test strip Ql (U)Moderate AbnormalNegativeOhioHealthInterpretation and review of laboratory results AbnormalOhioHealthKetones mass conc (U)NegativeNegative mg/dLOhioHealthLeukocyte esterase Automated test strip Ql (U)NegativeNegativeOhioHealthMucus Auto #/area (Urine sed)FewAbnormalNone Seen, Rare /lpfOhioHealthNitrite Automated test strip Ql (U)NegativeNegativeOhioHealthpH (U)5.0 [pH]OhioHealthProtein mass conc (U)30 AbnormalNegative mg/dLOhioHealthComment on above:False positive results may occur in urines with large amounts of hemoglobin, pH greater than 8.0, contrast medium, or disinfectants including ammonium compounds.RBC Auto #/area (Urine sed)2OhioHealthSpecific gravity Relative Density (U)1.031HighOhioHealth Urobilinogen mass conc (U)>=4.0Abnormal<2.0 mg/dLOhioHealthWBC Auto #/area (Urine sed)2OhioHealthMicroscopic examination is performed on all urinalysis samples and only positive findings are reported. The test for blood on the chemical analytic portion of urinalysis may also be positive due to he moglobinuria and myoglobinuria and if red blood cells are present they are quantified by microscopic examination.[facility] ABDOMEN LIMITED STUDYon 40-80-1785NX ABDOMEN LIMITED STUDYEXAMINATION: RIGHT UPPER QUADRANT ULTRASOUND 12/21/2018 11:54 pm COMPARISON: None. HISTORY: ORDERING SYSTEM PROVIDED HISTORY: Epigastric RUQ and RLQ pain; TECHNOLOGIST PROVIDED HISTORY: Reason for Exam: abd pain Illness/Other Acuity: Acute Cancer History: no Surgery, Radiation History: no Type of Encounter: Initial Additional signs and symptoms: none ORDERING SYSTEM PROVIDED DIAGNOSIS CODES: R10.9 Abdominal pain, unspecified abdominal location R11.2 Nausea and vomiting, intractability of vomiting not specified, unspecified vomiting type R03.0 Elevated blood pressure reading E80.6 Hyperbilirubinemia R74.0 Transaminitis R79.89 Elevated serum creatinine FINDINGS: LIVER: Liver echogenicity is mildly heterogeneous. There is intrahepatic biliary ductal dilatation. BILIARY SYSTEM: Gallstones within the gallbladder. No gallbladder wall thickening. Sonographic Cadet sign is absent. Common bile duct is dilated measuring up to 10 mm with some tapering to 7 mm within the pancreatic head. RIGHT KIDNEY: The right kidney is grossly unremarkable without evidence of hydronephrosis. PANCREAS: Visualized portions of the pancreas are unremarkable. OTHER: No evidence of right upper quadrant ascites. IMPRESSION: 1. Common bile duct is dilated with some intrahepatic duct dilatation. 2. Cholelithiasis without evidence of acute cholecystitis. Workstation ID: [id number] Dictated by: EMEKA CHAN on [place] Dec 22, 2018 12:13:12 AM EDT Transcribed by: EMEKA CHAN on [place] Dec 22, 2018 12:13:12 AM EDT Finalized by: EMEKA CHAN on [place] Dec 22, 2018 12:13:12 AM TMemorial Satilla HealthComment on above:Order Comment: US Gallbladder Reason for exam?:abd pain Injury/Trauma or Illness?:Illness/Other How long have you had these symptoms (acute/chronic)?:Acute History of cancer?:no Surgeries, chemotherapy, or radiation?:no Type of Exam?:Initial Additional signs and symptoms?:none1. Common bile duct is dilated with some intrahepatic duct dilatation. 2. Cholelithiasis without evidence of acute cholecystitis. Workstation ID: [id number], Rad In [facility] - 12/22/2018 12:16 AM EDT EXAMINATION: RIGHT UPPER QUADRANT ULTRASOUND 12/21/2018 11:54 pm COMPARISON: None. HISTORY: ORDERING SYSTEM PROVIDED HISTORY: Epigastric RUQ and RLQ pain; TECHNOLOGIST PROVIDED HISTORY: Reason for Exam: abd pain Illness/Other Acuity: Acute Cancer History: no Surgery, Radiation History: no Type of Encounter: Initial Additional signs and symptoms: none ORDERING SYSTEM PROVIDED DIAGNOSIS CODES: R10.9 Abdominal pain, unspecified abdominal location R11.2 Nausea and vomiting, intractability of vomiting not specified, unspecified vomiting type R03.0 Elevated blood pressure reading E80.6 Hyperbilirubinemia R74.0 Transaminitis R79.89 Elevated serum creatinine FINDINGS: LIVER: Liver echogenicity is mildly heterogeneous. There is intrahepatic biliary ductal dilatation. BILIARY SYSTEM: Gallstones within the gallbladder. No gallbladder wall thickening. Sonographic Cadet sign is absent. Common bile duct is dilated measuring up to 10 mm with some tapering to 7 mm within the pancreatic head. RIGHT KIDNEY: The right kidney is grossly unremarkable without evidence of hydronephrosis. PANCREAS: Visualized portions of the pancreas are unremarkable. OTHER: No evidence of right upper quadrant ascites. IMPRESSION: 1. Common bile duct is dilated with some intrahepatic duct dilatation. 2. Cholelithiasis without evidence of acute cholecystitis. Workstation ID: [id number]: RIGHT UPPER QUADRANT ULTRASOUND 12/21/2018 11:54 pm COMPARISON: None. HISTORY: ORDERING SYSTEM PROVIDED HISTORY: Epigastric RUQ and RLQ pain; TECHNOLOGIST PROVIDED HISTORY: Reason for Exam: abd pain Illness/Other Acuity: Acute Cancer History: no Surgery, Radiation History: no Type of Encounter: Initial Additional signs and symptoms: none ORDERING SYSTEM PROVIDED DIAGNOSIS CODES: R10.9 Abdominal pain, unspecified abdominal location R11.2 Nausea and vomiting, intractability of vomitingnot specified, unspecified vomiting type R03.0 Elevated blood pressure reading E80.6 Hyperbilirubinemia R74.0 Transaminitis R79.89 Elevated serum creatinine FINDINGS: LIVER: Liver echogenicity is mildly heterogeneous. There is intrahepatic biliary ductal dilatation. BILIARY SYSTEM: Gallstones within the gallbladder. No gallbladder wall thickening. Sonographic Cadet sign is absent. Common bile duct is dilated measuring up to 10 mm with some tapering to 7 mm within the pancreatic head. RIGHT KIDNEY: The right kidney is grossly unremarkable without evidence of hydronephrosis. PANCREAS: Visualized portions of the pancreas are unremarkable. OTHER: No evidence of right upper quadrant ascites.OhioHealthBilirubin, Directon 44-87-9885Jotlaybbx.conjugated mass conc 4.4 mg/dLHigh0 - 0.4 mg/dLOhioHealthInterpretation and review of laboratory resultsAbnormalOPaulding County HospitalC WITH AUTO DIFFERENTIALon 03-96-8296Cpzivmaee #/vol (Bld)0.05 10*3/uLOhioHealthBasophils/100 WBC (Bld)0.6 %[facility]Ge[facility]al HospitalEosinophils #/vol (Bld)0.13 10*3/uLOhioHealthEosinophils/100 WBC (Bld)1.7 %[facility] Erythrocyte distribution width Entitic volume (RBC)12.9 %11.6 - 14.8 %[facility] Hematocrit Volume Fraction (Bld)40.0 %36 - 46 %[facility] HospitalHemoglobin mass conc (Bld)12.7 g/dL12 - 16 g/dLOhioHealthImmature granulocytes #/vol (Bld)0.02 10*3/uLOhioHealthImmature granulocytes/100 WBC (Bld)0.30 %OhioHealthComment on above:The IG parameter is the percentage of metamyelocytes, myelocytes, and promyelocytes.Lymphocytes #/vol (Bld)2.58 10*3/uLOhioHealthLymphocytes/100 WBC (Bld)32.8 %[facility] HospitalH Entitic mass (RBC)27.4 pg25 - 35 pgOhioHealthMCHC mass conc (RBC)31.8 g/dL31 - 37 g/dLMercy Health Fairfield HospitalV Entitic volume (RBC)86.4 fL78 - 102 fLOhioHealthMonocytes #/vol (Bld)0.45 10*3/uLOhioHealthMonocytes/100 WBC (Bld) 5.7 %OhioGeorgetown Behavioral HospitalNeutrophils #/vol (Bld)4.63 10*3/uLOhioHealthNeutrophils/100 WBC (Bld)58.9 %OhioHealthNucleated RBC #/vol (Bld)0.00 10*3/uLOhioHealthNucleated RBC/100 WBC Ratio (Bld)0.0 %OhioHealthPlatelet mean volume Entitic volume (Bld) 10.8 fL9 - 15.5 fLOhioHealthPlatelets #/vol (Bld)272 10*3/uLOhioHealthRBC #/vol (Bld)4.63 10*6/uLOhioHealthWBC #/vol (Bld)7.86 10*3/uLOhioHealthComprehensive Metabolic Panelon 55-01-8625Zbogkzh mass conc4.7 g/dLHigh3.2 - 4.5 g/dL OhioHealthALP enzyme act/ole546 U/LHigh40 - 140 U/LOhioHealthALT enzyme act/vol 164 U/LHigh0 - 40 U/LOhioHealthAnion gap molar conc18 mmol/L10 - 20 mmol/L [facility]HealthAST enzyme act/vol97 U/LHigh0 - 45 U/LOhioHealthBilirubin mass conc5.4 mg/dLHigh0 - 1.3 mg/dLOhioHealthCalcium mass conc10.1 mg/dL8.4 - 10.2 mg/dL OhioHealthChloride molar lbov090 mmol/L98 - 108 mmol/LOhioHealthCreatinine mass conc1.02 mg/dLHigh0.5 - 1 mg/dLOhioHealthGFR/1.73 sq M predicted among non- blacks MDRD vol rate/area (S/P/Bld)The eGFR should be used for monitoring renal function only and not for medication dosing.OhioHealthGFR/1.73 sq M.predicted CKD-EPI vol rate/area (S/P/Bld)80>=60 mL/min/1.73 l1RdrwYddqibZijhcyk mass conc 91 mg/dL65 - 99 mg/dLOhioHealthHCO3 molar conc26 mmol/L21 - 32 mmol/LOhioHealth Interpretation and review of laboratory resultsAbnormalOhioHealthPotassium molar conc3.7 mmol/L3.5 - 5.1 mmol/LOhioHealthProtein mass conc7.5 g/dL6 - 8 g/dL OhioHealthSodium molar fgvm425 mmol/L135 - 145 mmol/LOhioHealthUrea nitrogen mass conc15 mg/dL8 - 25 mg/dLOhioHealthUrea nitrogen/Creatinine mass ratio14.7 mg/mgOhioHealthLipaseon 27-27-0748Svbalxwspwihqx and review of laboratory resultsNormalOhioHealthLipase enzyme act/vol40 U/L15 - 65 U/LOhioHealthOtheron 26-56-2134Xvqyj TubeHold for add-ons.OhioHealthComment on above:Auto resulted. Vital Signs Date TimeVital SignValuePerforming VmbgaeskvXrwhufsb45-98-5739 14:03-0400Body jdyhqg473.1 cmAlexandrea Foy MD Work Phone: [phone]08-14-2025 14:03-0400 Body mass index (BMI) [Ratio]24.7 kg/m9EhpplgyAlexandrea Foy MD Work Phone: [phone]08-14-2025 14:03-0400 Body ydzdtqfkkjq37.6 [degF]Alexandrea Foy MD Work Phone: [phone]08-14-2025 14:03-0400 Body .58 kgAlexandrea Foy MD Work Phone: [phone]08-14-2025 14:03-0400 Diastolic blood hsdawzfk11 mm[Hg]Alexandrea Foy MD Work Phone: [phone]08-14-2025 14:03-0400 Heart rate90 /Yaneth Foy MD Work Phone: [facility]08-14-2025 14:03-0400 Respiratory rate18 /Yaneth Foy MD Work Phone: [phone] [place], [place] 2179108-14-2025 14:03-0400 SaO2% (BldA) [Mass fraction]99 %Alexandrea Foy MD Work Phone: [phone]08-14-2025 14:03-0400 Systolic blood kjajufor749 mm[Hg]Alexandrea Foy MD Work Phone: [phone] [address]-31-2024 14:03-0400 Body mzxyed447.56 [facility]20[facility] 14:03-0400Body mass index (BMI) [Ratio]28.1 kg/x5QfvedwauqMckitrick Hospital07-31-2024 14:03-0400Body pyugkufdagq097.3 [degF][facility] 04-16-2024 14:03-0400Body .44 kg[facility] 04-16-2024 14:03-0400Diastolic blood mobxlzsa13 mm[Hg][facility]07-31-2024 14:03-0400Heart rate88 /minM[facility]itrick Hospital 04-16-2024 14:03-9844DgL0% (BldA) [Mass fraction]99 %[facility]07-31-2024 14:03-0400Systolic blood ourfqyxs507 mm[Hg][facility]03-27-2023 10:20-0400Body zegzqt110.56 cmPsimone Sena Other [email or web address] Other 03-27-2023 10:20-0400Body mass index (BMI) [Ratio] 30.04 kg/t0IvjhcoBrooke Sena Other [email or web address] Other 03-27-2023 10:20-0400Body jkemgssrlar13.9 [degF]Brooke Hirschmond Other [email or web address] Other 03-27-2023 10:20-0400Body iubddf42.38 kgBrooke Sena Other [email or web address] Other 03-27-2023 10:20-0400Respiratory rate18 /minBrooke Sena Other [email or web address] Other 03-27-2023 10:20-7290ViM7% (BldA) [Mass fraction]97 % Brooke Sena Other [employer] Other 04-10-2019 08:19-0400Body Ozghzeozttu97.29 [degF] [facility] CenterRajrhewFlnxAmufug55-75-4345 08:19-0400BP Odcigmzqe60 mm[Hg][facility] CenterFsicxvkIwjhYwlsoa22-18-6113 08:19-0400BP Ytlagxls883 mm[Hg][facility]04-10-2019 08:-0400Pulse (Heart Rate)59 /minAdelia [facility] MiamisburgKpbdIymoiz01-08-6907 08:-0400Pulse Zxhdywla43 %[facility] 12-25-2018 08:-0400Respiratory Rate16 /minTrumbull Regional Medical CenterOffakjcRptwSlocnp92-66-5544 04:-0400BMI (Body Mass Index)25.01 kg/k0CutjjkhTrumbull Regional Medical CenterXudwixoIxnkTramvc65-96-3425 04:6598Uwmwxh91.1 kgTrumbull Regional Medical CenterFqcdohtZnrlOpuazz68-81-2382 11:[address] [facility] Encounters Encounter DateEncounter TypeCare ProviderFacilityStart: 04-30-2025 End: 32-96-9753aamulyvaakZloikcv M Hoy MD Work Phone: [facility] Work Phone: Start: 04-30-2025 End: 84-79-3299Jlpvtiu encounter procedurePatucker Castanon TOXICOLOGIST-[facility] Work Phone: Start: 04-16-2024 End: 25-02-4187eoilklmuezGmevbmzzfUniversity Hospitals [facility] Work Phone: Start: 04-16-2024 End: 82-47-7091Iwbecux encounter procedureScotland [facility] Work Phone: Start: 07-31-2023 End: 07-20-0616ivszpcdcezLOMIZ FAZIONot AvailableStart: 12-11-2022 End: 95-46-2926lguyoisuykQygkyk Dymond Other [place] [employer] Other Start: 81-34-1402Lanaow outpatient visit 25 minutes Brooke SenaFPG Urgent Care ClydeStart: 01-08-2020 End: 60-08-7011Ekiiftm encounter procedureDOKRISSY FOYFacility:O2Brbyq: 03-17-0892Qkjmiaw encounter procedureDOUGLAS HOYaniraFacility:Z1Fiabz: 02-20-2019 End: 93-05-3078Ctgwplk encounter procedurePAINOCENCIO ALLENFacility:J9Wdrzg: 12-24-2018 End: 16-19-0770Wmrwyrfxqc and management of inpatientDOCleveland Clinic Martin North Hospitaltart: 12-21-2018 End: 51-06-0039Ggdnevyyli and management of inpatientAdelia Levine Bernard Work Phone: [facility] Med SurgComment on above: Abdominal pain, unspecified abdominal location (Primary Dx); Nausea and vomiting, intractability of vomiting not specified, unspecified vomiting type; Elevated blood pressure reading; Hyperbilirubinemia; Transaminitis; Elevated serum creatinine; Calculus of gallbladder and bile duct with obstruction without cholecystitis; Post-operative pain Procedures DateProcedureProcedure DetailPerforming ClinicianStart: 83-49-0588Pnxas Strep (POC)Alexandrea Foy MD Work Phone: Start: 71-56-0717Jkrus Strep (POC)Start: 12-25-2018 Bilirubin.direct [Mass/volume] in Serum or PlasmaAimee Lariccia Work Phone: Start: 97-51-9236Utydcidr blood count (hemogram) panel - Blood by Automated countAimee Lariccia Work Phone: Start: 64-39-2841Imzedohshvhrf metabolic 2000 panel - Serum or PlasmaAimee Lariccia Work Phone: Start: 12-24-2018 End: 43-30-4743NUWBZQHDMDENHLZ LAPAROSCOPICGrtiny Chowdhury Work Phone: Start: 33-93-7520Edgsrixhp.direct [Mass/volume] in Serum or PlasmaAimee Larsav Work Phone: Start: 46-09-3987Avjbbyhclydycstfiu.beta subunit ( test) [Presence] in Serum or PlasmaSabrina Berta Montes Work Phone: Start: 99-91-4304Toljrrsr blood count (hemogram) panel - Blood by Automated countKimber Hough Work Phone: Start: 81-91-0115Anxptsjehxufn metabolic 2000 panel - Serum or PlasmaAlexe Gianluca Work Phone: Start: 38-72-5955Sjzmlk [Enzymatic activity/volume] in Serum or PlasmaAlexe Gianluca Work Phone: Start: 52-29-8007Ncjzbhnmdc retrograde cholangiopancreatography (ERCP) with dilatation of bile duct using fluoroscopic guidanceOsmin Batista Work Phone: Start: 20-97-4366Wrceklnfgtp up to 1 hour physician/qhp timeOsmin Batista Work Phone: Start: 36-73-1155Igglilcbpg retrograde cholangiopancreatographyOsmin Batista Work Phone: Start: 12-27-3073TWXGZIUBHS RETROGRADE CHOLANGIOPANCREATOGRAPHYsOmin Batista Work Phone: Start: 54-79-7631Akjyzhbsp.direct [Mass/volume] in Serum or PlasmaFranny Dela Cruz Work Phone: Start: 38-37-6110Ysifcqap blood count (hemogram) panel - Blood by Automated countFranny Dela Cruz Work Phone: Start: 74-24-9112Siynhqrrirkld metabolic 2000 panel - Serum or PlasmaFranny Dela Cruz Work Phone: Start: 00-79-5701Jzpvqk [Enzymatic activity/volume] in Serum or PlasmaFranny Dela Cruz Work Phone: Start: 41-36-8406Mvqdcjd.ionized [Mass/volume] in Serum or PlasmaFranny Dela Cruz Work Phone: Start: 86-32-5601Wkeif metabolic 2000 panel - Serum or PlasmaBenamayamin Edu Jerry Work Phone: Start: 06-39-8191Fwigtzbn blood count (hemogram) panel - Blood by Automated countBenamayamin Edu Jerry Work Phone: Start: 87-16-5526Bwsynfc function 2000 panel - Serum or PlasmaBenlen Jerry Work Phone: Start: 00-02-8416Cfqcxcsag [Mass/volume] in Serum or PlasmaFranny Dela Cruz Work Phone: Start: 85-85-6126Xcxpvbvlz [Mass/volume] in Serum or Aldo Dela Cruz Work Phone: Start: 01-92-3863Oa abdomen & pelvis w/contrast materialAlexander Ricki Huffman Work Phone: art: 16-59-1569YE scan of upper abdomenAlexand Ricki Huffman Work Phone: art: 22-57-4821RcdsbgilvwAvbiuqj Julianna Wagner Work Phone: Start: 11-86-4567Xpjmhhfoxnzfp [Mass/volume] in Serum or PlasmaAdelia Wagner Work Phone: art: 36-82-7483Qgxcgewft.direct [Mass/volume] in Serum or PlasmaAdelia Wagner Work Phone: [phone]-art: 95-14-2309Yykdqidv blood count with white cell differential, automatedAdelia Levine Pamryan Work Phone: [phone]-art: 31-45-4555Juzylzof blood count with white cell differential, manualAdelia Wagner Work Phone: Start: 22-16-5288Nrftoyzuipter metabolic 2000 panel - Serum or PlasmaAdelia Wagner Work Phone: Start: 66-79-5242PAWU TOPTriage Protocol Emergency Start: 41-79-1048Hkmzzhcrk panel measurementAdelia Wagner Work Phone: Start: 43-21-3365JFBSMMJC TOPTriage Protocol Emergency Start: 15-07-0899AGGWX BLUE TOPTriage Protocol EmergencyStart: 41-29-2962SWYUS GREEN TOPTriage Protocol EmergencyStart: 81-09-5018Upucwa [Enzymatic activity/volume] in Serum or PlasmaAdelia Wagner Work Phone: Start: 61-01-7976IIOL GREEN TOPTriage Protocol Emergency Plan of Treatment DateCare ActivityDetailAuthorStart: 18-40-3242Froqpfdbi vaccination given SEQUENTIAL INFLUENZA VACCINE (#1)ConnecticutHealthStart: 54-03-8920Foaenbn and physical examination, annual for health maintenanceWellmont Lonesome [facility] VisitOhioHealthStart: 60-27-5001Dhjkbatlp for Chlamydia trachomatisChlamydia ScreeningOhioHealthStart: 47-63-3026Gmtlpzc vaccinationTETANUS EVERY 10 YROhioHealthHCG ( test) Ql (U)POC , Urine MALOIRE 12/21/2018 10:31 PM EDTOhioHealthProcedure on tissue specimenOhioHealthComment on above:Once for 1 Occurrences starting 12/24/2018, 1 completedRainbow DrawRainbow Draw STAT 12/21/2018 10:21 PM EDT [facility] Payers DatePayer CategoryPayerPolicy [id number] BCBS OUT OF STATE [facility] xxxxxxxxxxxx 2011-Presentxxxxxxxxxxxx [id number] [id number] [id number]-[id number] Social History DateTypeDetailFacilityStart: 12-25-2018 End: 98-55-2581Yxginml smoking status NHISNever smokerMedina Hospitalex Assigned At BirthNot on fileOhioHealthSex Assigned At [facility] Hospitalex Assigned At [facility]NoTem[facility] [employer] Other Start: 86-72-1594Aqe Assigned At [facility] SystemexFemale (finding)[facility] Evaluation note 12-11-2022 Note Date & MoxnTjnaFvkbeckz64-83-0808 Evaluation note* Encounter Date Diagnosis Assessment Notes Treatment Notes Treatment Clinical Notes Nov, Sore throat (ICD-10 - J02.9) Nov,Strep pharyngitis (ICD-10 - J02.0)Strep throat material was printed Drink plenty fluids, get plenty of rest. Take the azithromycin as prescribed until gone. Take Tylenol or Motrin as needed for aches pains or fevers. Consider drinking warm tea with honey for comfort.Follow-up with your family physician if no improvement in 2 to 3 days. Off school today and tomorrow According to the Centor score, this patient is positive for strep even though her rapid strep is negative. She will be treated for strep [facility] [employer] Other Evaluation note Note Date & TypeNoteFacilityEvaluation noteNo assessment information available [facility] Work Phone: Evaluation note Note Date & TypeNoteFacilityEvaluation note* Diagnosis Onset Date Resolution Status Admit Date Contact with or suspected exposure to dorcas acute respiratory syndrome noneactiveAugust 2024 1:45pmSore throatnoneactiveAugust 2024 1:45pm [facility] Work Phone: History general Narrative - Reported Note Date & TypeNoteFacilityHistory general Narrative - Reported* Type Description Date Surgical History cholecystectomy 2018 [email or web address] Other Reason for referral (narrative) Note Date & TypeNoteFacilityReason for referral (narrative)No reason for referral information availableSt. Charles Hospital Work Phone: Hospital Course * Russell Cantor MD - 12/25/2018 12:40 PM EDT [facility] [place] Bogdan Keen Admitted: 12/21/2018 Discharge Date: 12/25/18 PCP Handoff Recommended Outpatient Testing: CMP in 1 week Results Pending At Discharge: None Clinical Summary Bogdan Keen is a 18 y.o. female patient of Alexandrea Foy MD with history of GERD, and gallstones presented with worsening RUQ abdominal pain found to have cholelithiasis and choledocholithiasis. Cholelithiasis and Choledocolithiaisis Gallstones, and CBD dilation seen on US and Abdominal CT imaging, no acute cholecystitis Elevated liver enzymes, and jaundice (see below) Suspected Choledocholithiasis. GI consulted. S/p ERCP and stone removal and sphincterectomy . Per Gi, Was started on Cipro & Flagyl now but now off as no signs of infection. S/p Lap Sana by Surgery 12/24. Tolerated diet. Ok to d/c per surgery with a f/u in 2 weeks. Dc home with Coclace, Zofran, [place] PRN. Transaminitis T bili 5.4, D bili 4.7, Alk phos 150, AST 97, ALT 164 on admission. Given 1 L NS in the ED, continue IVF. LFT's improving. T Bili Improving. Acute hepatitis panel neg. GI consultation, Surgery consultation as above. Dehydration Poor PO intake x 3-4 days Mildly elevated Cr at 1.02. Now resolved after IVF. Stop IVF as tolerating PO. Discharge Medications Discharge Medication List as of 12/25/2018 11:50 AM START taking these medications Details HYDROcodone-acetaminophen (NORCO) 5-325 mg per tablet Take 1 (one) tablet by mouth every 6 (six) hours as needed (moderate pain) ., Starting Sun12/25/2018, Until Sun01/01/2019, Print CONTINUE these medications which have CHANGED Details ondansetron (ZOFRAN) 4 MG tablet Take 1 (one) tablet (4 mg total) by mouth every 8 (eight) hours asneeded for nausea ., Starting Sun12/25/2018, Until Sun01/24/2019, Print docusate sodium (COLACE) 100 MG capsule Take 1 (one) capsule (100 mg total) by mouth 2 (two) times a day Hold if having loose stools for 10 days ., Starting Sun12/25/2018, Until Sun01/04/2019, Print CONTINUE these medications which have NOT CHANGED Details norgestimate-ethinyl estradiol (ORTHO TRI-CYCLEN,TRINESSA) 0.18/0.215/0.25 mg-35 mcg (28) per tablet Take 1 tablet by mouth daily ., Historical Med pantoprazole (PROTONIX) 20 MG tablet Take 20 mg by mouth daily ., Historical Med sucralfate (CARAFATE) 1 gram tablet Take 1 g by mouth 4 (four) times a day before meals ., Historical Med STOP taking these medications oxyCODONE (ROXICODONE) 5 MG immediate release tablet Comments: Reason for Stopping: Physician(s) Follow Up: Jackie Chowdhury MD [address] [place] [id number] Call Follow up 2 weeks post-op, please call for an appointment Alexandrea Foy MD [address] [facility] [address] Schedule an appointment as soon as possible for a visit in 1 week(s) Condition at Discharge: Stable Disposition: Home Patient instructions, including activity, were given to the patient/family at discharge. Time spent on discharge: > 30 minutes Completed by: Russell Cantor on 12/25/18, 2:19 PM in this encounter Discharge Instructions * Instructions* Ruma Workman, DO - 12/25/2018 Cholecystectomy: What to Expect at Home Your Recovery After your surgery, it is normal to feel weak and tired for several days after you return home. Your belly may be swollen. If you had laparoscopic surgery, you may also have pain in your shoulder forabout 24 hours. You may have gas or need to burp a lot at first, and a few people get diarrhea. The diarrhea usually goes away in 2 to 4 weeks, but it may last longer. How quickly you recover depends on whether you had a laparoscopic or open surgery. For a laparoscopic surgery, most people can go back to work or their normal routine in 1 to 2 weeks, but it may take longer, depending on the type of work you do. For an open surgery, it will probably take 4 to 6 weeks before you get back to your normal routine. This care sheet gives you a general idea about how long it will take for you to recover. However, each person recovers at a different pace. Follow the steps below to get better as quickly as possible. How can you care for yourself at home? Activity Rest when you feel tired. Getting enough sleep will help you recover. Try to walk each day. Start out by walking a little more than you did the day before. Gradually increase the amount you walk. Walking boosts blood flow and helps prevent pneumonia and constipation. For about 4 to 6 weeks, avoid lifting anything that would make you strain. This may include a child, heavy grocery bags and milk containers, a heavy briefcase or backpack, cat litter or dog food bags, or a vacuum drycleaner. No lifting anything heavier than 10lbs for the next 4 to 6 weeks. Avoid strenuous activities, such as biking, jogging, weightlifting, and aerobic exercise, until your doctor says it is okay. You may shower 24 to 48 hours after surgery, if your doctor okays it. Pat the cut (incision) dry. Do not take a bath for the first 2 weeks, or until your doctor tells you it is okay. You may drive when you are no longer taking pain medicine and can quickly move your foot from the gas pedal to the brake. You must also be able to sit comfortably for a long period of time, even if you do not plan to go far. You might get caught in traffic. For a laparoscopic surgery, most people can go back to work or their normal routine in 1 to 2 weeks, but it may take longer. For an open surgery, it will probably take 4 to 6 weeks before you get back to your normal routine. Diet Eat smaller meals more often instead of fewer larger meals. You can eat a normal diet, but avoid eating fatty foods for about 1 month. Fatty foods include hamburger, whole milk, cheese, and many snack foods. If your stomach is upset, try bland, low-fat foods like plain rice, broiled chicken, toast,and yogurt. Drink plenty of fluids (unless your doctor tells you not to). If you have diarrhea, try avoiding spicy foods, dairy products, fatty foods, and alcohol. You can also watch to see if specific foods cause it, and stop eating them. If the diarrhea continues for more than 2 weeks, talk to your doctor. You may notice that your bowel movements are not regular right after your surgery. This is common. Try to avoid constipation and straining with bowel movements. You may want to take a fiber supplement every day. If you have not had a bowel movement after a couple of days, ask your doctor about taking a mild laxative. Medicines Your doctor will tell you if and when you can restart your medicines. He or she will also give you instructions about taking any new medicines. If you take blood thinners, such as warfarin (Coumadin), clopidogrel (Plavix), or aspirin, be sure to talk to your doctor. He or she will tell you if and when to start taking those medicines again. Make sure that you understand exactly what your doctor wants you to do. Take pain medicines exactly as directed. If the doctor gave you a prescription medicine for pain, take it as prescribed. If you are not taking a prescription pain medicine, take an ltew-cbp-aiseira medicine such as acetaminophen (Tylenol), ibuprofen (Advil, Motrin), or naproxen (Aleve). Read and follow all instructionson the label. Do not take two or more pain medicines at the same time unless the doctor told you to. Many pain medicines contain acetaminophen, which is Tylenol. Too much Tylenol can be harmful. If you think your pain medicine is making you sick to your stomach: Take your medicine after meals (unless your doctor tells you not to). Ask your doctor for a different pain medicine. If your doctor prescribed antibiotics, take them as directed. Do not stop taking them just because you feel better. You need to take the full course of antibiotics. Incision care If you have strips of tape on the incision, leave the tape on for a week or until it falls off. If you have skin glue, leave it in place. It will fall off on its own in a few weeks. After 24 to 48 hours, wash the area daily with warm, soapy water, and pat it dry. Keep the area clean and dry. You may cover it with a gauze bandage if it weeps or rubs against clothing. Change the bandage every day. Ice To reduce swelling and pain, put ice or a cold pack on your belly for 10 to 20 minutes at a time. Do this every 1 to 2 hours. Put a thin cloth between the ice and your skin. Follow-up care is a gutiérrez part of your treatment and safety. Be sure to make and go to all appointments, and call your doctor if you are having problems. It's also a good idea to know your test resultsand keep a list of the medicines you take. When should you call for help? Call 911 anytime you think you may need emergency care. For example, call if: You passed out (lost consciousness). You have severe trouble breathing. You have sudden chest pain and shortness of breath, or you cough up blood. Call your doctor now or seek immediate medical care if: You are sick to your stomach and cannot drink fluids. You have pain that does not get better when you take your pain medicine. You have signs of infection, such as: Increased pain, swelling, warmth, or redness. Red streaks leading from the incision. Pus draining from the incision. Swollen lymph nodes in your neck, armpits, or groin. A fever. Your urine turns dark brown or your stool is light-colored or martin-colored. Your skin or the whites of your eyes turn yellow. Bright red blood has soaked through a large bandage over your incision. You have signs of a blood clot, such as: Pain in your calf, back of knee, thigh, or groin. Redness and swelling in your leg or groin. You have trouble passing urine or stool, especially if you have mild pain or swelling in your lowerbelly. Watch closely for any changes in your health, and be sure to contact your doctor if: You had a laparoscopic surgery and your shoulder pain lasts more than 24 hours. You do not have a bowel movement after taking a laxative. Where can you learn more? Log into your personal health record on https://[employer] [email or web address].SightCall and enter F357 in the Education box to learn more about Cholecystectomy: What to Expect at Home. Current as of: January 18, 2015 Content Version: 10.6 4979-3250 [employer]. Care instructions adapted under license by your healthcare professional. If you have questions about a medical condition or this instruction, always ask your healthcare professional. [employer] disclaims any warranty or liability for your use of this information. in this encounter History of Present Illness * Jackie Chowdhury MD - 12/25/2018 9:37 AM EDT General surgery attending progress note POD 1 s/p lap sana, PPD 2 s/p ERCP w/ sphincterotomy. Emesis X 1 post-op. Still feels nauseous andhas lack of appetite. Pain control moderate. Incisions c/d/i Recommendations: - D/C home with Colace, Zofran PRN, [place] PRN - Discussed post-op care and follow up plans with the patient and her mother Jackie Chowdhury MD * Ruma Workman DO - 12/25/2018 9:00 AM EDT GENERAL SURGERY DAILY PROGRESS NOTE Patient Name: Bogdan Keen MR #: [id number] CSN #: [id number] Attending: Jackie Chowdhury MD Clinician: Ruma Workman DO Contact: [phone] Assessment/Plan Choledocholithiasis Cholelithiasis Transaminitis Hyperbilirubinemia - significantly reduced following ERCP as expected. S/P ERCP 4/8 with stones present, clearance of duct was preformed. - POD # 1 Laparoscopic cholecystectomy - AF, VSS - No leukocytosis - Bilirubinemia resolving, Direct bilirubin 0.7, decreased from 1.8 - Patient's pain well controlled, complaining of nausea this morning - As long as the patient is able to continue to tolerate clear liquids, she is okay for discharge from a surgery standpoint. - Will send the patient home with prescriptions for Zofran, [place] and Colace - Follow-up in the surgery clinic in 2 weeks for a post-op check Discussed with Dr. Chowdhury Subjective Patient seen and evaluated at bedside. No acute events overnight. Patient states her pain is well controlled, complains of nausea this morning, no vomiting. Has been up to walk since surgery, wishes to go home today. Objective Vital signs in last 24 hours: Temp: [97.9 F (36.6 C)-98.6 F (37 C)] 98.3 F (36.8 C) Heart Rate: [57-85] 64 Resp: [13-23] 18 BP: (95-121)/(57-76) 113/76 Intake/Output last 3 shifts: I/O last 3 completed shifts: In: 2278.7 [I.V.:1878.4; IV Piggyback:400.3] Out: 10 [Blood:10] Intake/Output this shift: I/O this shift: In: 1409.8 [I.V.:1009.8; IV Piggyback:400] Out: - Physical Exam: General Appearance: Alert, cooperative, no distress, appears stated age Lungs: Respirations unlabored, not in acute distress, no accessory muscle recruitment. On room air. Cardiovascular: No lower extremity swelling Abdomen: Soft, non-distended, appropriately tender to palpation, incisions x4 c/d/i with surgical dressings in place. Skin: Skin color, texture, turgor normal, no rashes or lesions Laboratory Recent Labs 12/23/18 0555 12/24/18 0500 12/25/18 0643 WBC 4.93 5.96 8.72 HGB 11.2* 10.9* 10.7* HCT 35.0* 33.3* 34.0* PLT 213 225 180 Recent Labs 12/23/18 0555 12/24/18 0500 12/25/18 0643 NA 141 141 138 K 4.4 4.0 3.7 CL 105 104 101 BICARB 24 24 22 BUN 9 8 7* CREATININE 0.79 0.84 0.82 GLUCOSE 69 76 104* CALCIUM 9.2 9.2 9.0 Recent Labs 12/23/18 0555 12/24/18 0500 12/25/18 0643 ALT 93* 84* 79* AST 37 39 50* ALKPHOS 121 115 104 BILITOT 5.1* 2.3* 1.5* LIPASE 16 139* -- No results for input(s): INR, PROTIME in the last 72 hours. Radiology No new studies * Russell Cantor MD - 12/25/2018 8:38 AM EDT [facility] [place] Assessment and Plan Bogdan Keen is a 18 y.o. female patient of Alexandrea Foy MD with history of GERD, and gallstones presented with worsening RUQ abdominal pain found to have cholelithiasis and choledocholithiasis. Cholelithiasis and Choledocolithiaisis Gallstones, and CBD dilation seen on US and Abdominal CT imaging, no acute cholecystitis Elevated liver enzymes, and jaundice (see below) Suspected Choledocholithiasis. GI consulted. S/p ERCP and stone removal and sphincterectomy . Per Gi, Was started on Cipro & Flagyl now but now off as no signs of infection. S/p Lap Sana by Surgery 12/24. On Reg diet per surgery. Pain control. Anticipate d/c today pending Surgery Clearance Transaminitis T bili 5.4, D bili 4.7, Alk phos 150, AST 97, ALT 164 on admission. Given 1 L NS in the ED, continue IVF. LFT's improving. T Bili Improving. Acute hepatitis panel neg. GI consultation, Surgery consultation as above. Dehydration Poor PO intake x 3-4 days Mildly elevated Cr at 1.02. Now resolved after IVF. Stop IVF as tolerating PO. Quality Measures DVT Prophylaxis: Low risk, ambulate Jim Catheter: None Disposition Discharge Location: Home Estimated Discharge Date: Likely today pending Surgery clearance Outpatient Testing: CMP in 1 week Subjective Reported abdominal pain after surgery but now states she feels better. Had an episode of emesis last night. Denies any nausea curently. No fevers or chills. Review of Systems The following system(s) were reviewed: All other systems reviewed and negative, other than HPI. Objective BP 113/76 (BP Location: Left arm, Patient Position: Lying) Pulse 64 Temp 98.3 F (36.8 C) (Oral) Resp 18 Ht 5' 4 Wt 66.1 kg (145 lb 11.6 oz) LMP 12/18/2018 SpO2 97% BMI 25.01 kg/m Physical Examination General Appearance: alert, cooperative, in no acute distress. HEENT: Head- normocephalic; Eyes- EOMI; Ears- hearing intact; Throat- oropharynx normal Cardiovascular: regular rate and rhythm; normal S1, S2; no murmurs, rubs, clicks or gallops; no peripheral edema. Respiratory: lungs clear to auscultation; without wheezes, rales or rhonchi Abdomen: soft, mildly-tender, non-distended; positive bowel sounds, Surgical dressing c/d/i Neurological: alert, oriented, normal speech; no focal findings or movement disorder noted Musculoskeletal: no significant deformity or tenderness to palpation Skin: normal coloration, texture and turgor; no lesions or eruptions Results/Medications Reviewed 12/25/18 8:38 AM Laboratory, Radiology, Medications and Transcriptions * Jayson Delarosa DO - 12/24/2018 8:04 PM EDT Surgery Post-OP Check S: Patient seen and examined. She was having some abdominal pain. Pain medications were adjusted. She vomited once earlier but denies nausea currently. Tolerating water. No other complaints. O: Temp: [97.9 F (36.6 C)-98.6 F (37 C)] 98.5 F (36.9 C) Heart Rate: [46-85] 66 Resp: [12-23] 18 BP: (95-121)/(57-72) 95/57 Gen: Alert & cooperative, no acute distress Heart: RRR without murmur Lungs: No respiratory distress, no accessory muscle use noted. Abd: Soft, nondistended, appropriately tender to palpation around incisions. Incisions with dressings in place. Dressings clean/dry/intact. Ext: warm and well perfused A/P: S/p laparoscopic cholecystectomy, POD#0 - Continue routine post operative care - Pain control: oxycodone prn - Diet: Regular diet - Encourage IS and ambulation Jayson Delarosa D.O. PGY1 * Gilda Power, WAREHOUSE MANAGER - 12/24/2018 10:11 AM EDT Daily Progress Note Patient Name: Bogdan Keen MR#: [id number] Assessment/Plan: 18 yo F who GI is following for hyperbili, abdominal pain. US and CT with cholelithiasis, CBD dilation. 12/23 ERCP- biliary system was mildly dilated. Multiple choledocholithiasis was found. Complete removal was accomplished by biliary sphincterotomy and balloon extraction. Indomethacin given to decreaserisk of post-ERCP pancreatitis. -Plan is for lap sana 12/24. GI will sign off at this time. Please call with further questions or concerns. Active Problems: Acute hepatitis SNOMED CT(R): ACUTE HEPATITIS LOS: 0 days Perpetual assessment: Bogdan Keen is a 18 y.o. y/o female presenting from [employer] with c/o epigastric and right upper quadrant abdominal pain that is worsened over the past severaldays. Subjective: Sleeping. Spoke to patients mother at bedside. Objective: Lipase 139 Physical Exam: Lungs: clear to auscultation bilaterally Heart: regular rate and rhythm, S1, S2 normal, no murmur, click, rub or gallop Abdomen: soft, mildy tender to palp, bsx4 Vital signs in last 24 hours: Temp: [97.7 F (36.5 C)-98.6 F (37 C)] 98.2 F (36.8 C) Heart Rate: [43-66] 53 Resp: [12-21] 12 BP: (92-112)/(40-72) 95/58 Intake/Output last 3 shifts: I/O last 3 completed shifts: In: 2914.3 [I.V.:2108; IV Piggyback:806.3] Out: 20 [Blood:20] Intake/Output this shift: No intake/output data recorded. Labs No results found for: INR, PROTIME Lab Results Component Value Date ALT 84 (H) 12/24/2018 AST 39 12/24/2018 ALKPHOS 115 12/24/2018 BILITOT 2.3 (H) 12/24/2018 Lab Results Component Value Date WBC 5.96 12/24/2018 HGB 10.9 (L) 12/24/2018 HCT 33.3 (L) 12/24/2018 MCV 85.4 12/24/2018 PLT 225 12/24/2018 Gilda Power Associated attestation - Osmin Batista, DO - 12/24/2018 10:54 AM EDT Examined & interviewed independently of the GI WAREHOUSE MANAGER. All labs, imaging, procedure & pathology reviewed. Directly involvement in management of the patient. Agree with GI WAREHOUSE MANAGER assessment & plan. Sign off. Thanks. * Russell Cantor MD - 12/24/2018 8:23 AM EDT [facility] [place] Assessment and Plan Bogdan Keen is a 18 y.o. female patient of Alexandrea Foy MD with history of GERD, and gallstones presented with worsening RUQ abdominal pain found to have cholelithiasis and choledocholithiasis. Cholelithiasis and Choledocolithiaisis Gallstones, and CBD dilation seen on US and Abdominal CT imaging, no acute cholecystitis Elevated liver enzymes, and jaundice (see below) Suspected Choledocholithiasis. GI consulted. S/p ERCP and stone removal and sphincterectomy . Per Gi, on Cipro & Flagyl. Surgery consulted in the ED. Plan for Lap Sana today. Will follow up d/c recs post op per surgery team. Transaminitis T bili 5.4, D bili 4.7, Alk phos 150, AST 97, ALT 164 on admission. Given 1 L NS in the ED, continue IVF. LFT's improving. T Bili Improving. Acute hepatitis panel neg. GI consultation, Surgery consultation as above. Dehydration Poor PO intake x 3-4 days Mildly elevated Cr at 1.02. Now resolved after IVF. Continue IVF as NPO. Quality Measures DVT Prophylaxis: Low risk, ambulate Jim Catheter: None Disposition Discharge Location: Home Estimated Discharge Date: TBD Outpatient Testing: TBD Subjective Reports doing well after the ERCP yesterday. Reports mild nausea. Mild abdominal pain similar to prior episode. No fevers or chills. Review of Systems The following system(s) were reviewed: All other systems reviewed and negative, other than HPI. Objective BP (!) 95/58 Pulse (!) 53 Temp 98.2 F (36.8 C) (Oral) Resp 12 Ht 5' 4 Wt 65.8 kg (145 lb) LMP 12/18/2018 SpO2 97% BMI 24.89 kg/m Physical Examination General Appearance: alert, cooperative, in no acute distress. HEENT: Head- normocephalic; Eyes- EOMI; Ears- hearing intact; Throat- oropharynx normal Cardiovascular: regular rate and rhythm; normal S1, S2; no murmurs, rubs, clicks or gallops; no peripheral edema. Respiratory: lungs clear to auscultation; without wheezes, rales or rhonchi Abdomen: soft, mildly-tender RUQ, non-distended; positive bowel sounds Neurological: alert, oriented, normal speech; no focal findings or movement disorder noted Musculoskeletal: no significant deformity or tenderness to palpation Skin: normal coloration, texture and turgor; no lesions or eruptions Results/Medications Reviewed 12/24/18 8:23 AM Laboratory, Radiology, Medications and Transcriptions * Rickey Dean DO - 12/24/2018 7:09 AM EDT GENERAL SURGERY DAILY PROGRESS NOTE Patient Name: Bogdan Keen MR #: [id number] CSN #: [id number] Attending: Jackie Chowdhury MD Clinician: Rickey Dean DO Contact: [phone] Assessment/Plan Choledocholithiasis Cholelithiasis Transaminitis Hyperbilirubinemia - significantly reduced following ERCP as expected. S/P ERCP 12/23 with stones present, clearance of duct was preformed. AF, vss No leukocytosis NPO sips with meds Continue IVF OR today, discussed with the patient in detail, all questions answered. Plan for laparoscopic cholecystectomy tomorrow pending ERCP -Mild elevation of lipase, not 3x normal. Patient with minimal tenderness Discussed with Dr. Chowdhury Subjective Patient seen and evaluated at bedside. Denies pain this am. No acute complaints following ERCP yesterday. Objective Vital signs in last 24 hours: Temp: [97.7 F (36.5 C)-98.6 F (37 C)] 98.2 F (36.8 C) Heart Rate: [43-66] 53 Resp: [12-21] 12 BP: (92-112)/(40-72) 95/58 Intake/Output last 3 shifts: I/O last 3 completed shifts: In: 2697.4 [I.V.:2091.1; IV Piggyback:606.3] Out: 20 [Blood:20] Intake/Output this shift: No intake/output data recorded. Physical Exam: General Appearance: Alert, cooperative, no distress, appears stated age Lungs: Respirations unlabored, not in acute distress, no accessory muscle recruitment Cardiovascular: Regular rate and rhythm, no lower extremity swelling Abdomen: Soft, non tender to palpation, no rebound or tenderness Skin: Skin color, texture, turgor normal, no rashes or lesions Laboratory Recent Labs 12/22/18 0348 12/23/18 0555 12/24/18 0500 WBC 6.98 4.93 5.96 HGB 11.3* 11.2* 10.9* HCT 35.2* 35.0* 33.3* PLT 233 213 225 Recent Labs 12/22/18 0348 12/23/18 0555 12/24/18 0500 NA 140 141 141 K 3.9 4.4 4.0 CL 104 105 104 BICARB 23 24 24 BUN 13 9 8 CREATININE 0.87 0.79 0.84 GLUCOSE 86 69 76 MG 2.0 -- -- PHOS 4.3 -- -- CALCIUM 9.3 9.2 9.2 Recent Labs 12/21/18 2221 12/22/18 0348 12/23/18 0555 12/24/18 0500 ALT 164* 133* 93* 84* AST 97* 72* 37 39 ALKPHOS 150* 132 121 115 BILITOT 5.4* 4.8* 5.1* 2.3* LIPASE 40 -- 16 139* No results for input(s): INR, PROTIME in the last 72 hours. Radiology No new studies Associated attestation - Jackie Chowdhury MD - 12/24/2018 1:15 PM EDT General surgery attending addendum I have reviewed, examined, and assessed the patient and agree with the resident's documentation, except as stated below. HD 3 with choledocholithiasis. PPD1 s/p ERCP with sphincterotomy. Multiple stones were cleared fromthe CBD. Labs are seen to be trending down appropriately. Pt still c/o abdominal pain. Risks and benefits were discussed. Will proceed with lap vs. Open cholecystectomy. Jackie Chowdhury MD * Tereza Beasley RN - 12/23/2018 1:41 PM EDT Report to Don * Tereza Beasley RN - 12/23/2018 1:36 PM EDT Much more awake * Tereza Beasley, RN - 12/23/2018 1:31 PM EDT Sips of soda. Pt still very sleepy. * Tereza Beasley, RN - 12/23/2018 1:30 PM EDT Ice chips to pt. * Russell Cantor MD - 12/23/2018 1:02 PM EDT [facility] [place]GRESS [place] Assessment and Plan Bogdan Keen is a 18 y.o. female patient of Alexandrea Foy MD with history of GERD, and gallstones presented with worsening RUQ abdominal pain found to have cholelithiasis and choledocholithiasis. Cholelithiasis and Choledocolithiaisis Gallstones, and CBD dilation seen on US and Abdominal CT imaging, no acute cholecystitis Suspect choledocholithiasis Elevated liver enzymes, and jaundice (see below) Surgery consulted in the ED GI consultation. Plan for ERCP with sphincterectomy & stone extraction. Per Gi, on Cipro & Flagyl. Surgery on consult. Possible Lap Sana tomorrow. Will f/u surgery recs post ERCP. Jaundice Transaminitis T bili 5.4, D bili 4.7, Alk phos 150, AST 97, ALT 164 on admission. Given 1 L NS in the ED, continue IVF. LFT's improving. Acute hepatitis panel neg. GI consultation, Surgery consultation in ED. Dehydration Poor PO intake x 3-4 days Mildly elevated Cr at 1.02. Now resolved after IVF. Continue IVF as NPO. Quality Measures DVT Prophylaxis: Low risk, ambulate Jim Catheter: None Disposition Discharge Location: Home Estimated Discharge Date: TBD Outpatient Testing: TBD Subjective Doing well. Reports abdominal pain is much better. No fevers, chills, itching, nausea, vomiting. Review of Systems The following system(s) were reviewed: All other systems reviewed and negative, other than HPI. Objective BP 103/64 Pulse (!) 48 Temp 98.6 F (37 C) (Temporal) Resp (!) 21 Ht 5' 4 Wt 65.8 kg (145lb) LMP 12/18/2018 SpO2 96% BMI 24.89 kg/m Physical Examination General Appearance: alert, cooperative, in no acute distress. HEENT: Head- normocephalic; Eyes- PERRLA, EOMI; Ears- hearing intact; Nose- no nasal discharge; Throat- oropharynx normal Cardiovascular: regular rate and rhythm; normal S1, S2; no murmurs, rubs, clicks or gallops; no peripheral edema. Respiratory: lungs clear to auscultation; without wheezes, rales or rhonchi Abdomen: soft, mildly-tender RUQ, non-distended; positive bowel sounds Neurological: alert, oriented, normal speech; no focal findings or movement disorder noted Musculoskeletal: no significant deformity or tenderness to palpation Skin: normal coloration, texture and turgor; no lesions or eruptions Results/Medications Reviewed 12/23/18 1:02 PM Laboratory, Radiology, Medications and Transcriptions * Osmin Batista DO - 12/23/2018 11:11 AM EDT Discussed w patient & parent/mom - all risk of invasive procedure (ERCP w sphincterotomy & stone extraction) explained to patient & mom: bleeding, infection, perforation, pancreatitis, respiratory/cardiac compromise & . Consent signed & placed on chart. * Kimber Hough DO - 12/23/2018 10:12 AM EDT GENERAL SURGERY DAILY PROGRESS NOTE Patient Name: Bogdan Keen MR #: [id number] CSN #: [id number] Attending: Jackie Chowdhury MD Clinician: Kimber Hough DO Contact: [phone] Assessment/Plan Choledocholithiasis Cholelithiasis Transaminitis Hyperbilirubinemia AF, vss No leukocytosis NPO sips with meds Continue IVF GI plan for ERCP today Plan for laparoscopic cholecystectomy tomorrow pending ERCP -am labs ordered including CBC, cmp and lipase -will consent patient today Discussed with Dr. Chowdhury Subjective Patient seen and evaluated at bedside. Denies pain this am Objective Vital signs in last 24 hours: Temp: [97.5 F (36.4 C)-98.4 F (36.9 C)] 98.3 F (36.8 C) Heart Rate: [54-81] 56 Resp: [16-18] 16 BP: (94-112)/(57-69) 95/57 Intake/Output last 3 shifts: I/O last 3 completed shifts: In: 3010.6 [I.V.:1784.2; IV Piggyback:1226.4] Out: - Intake/Output this shift: No intake/output data recorded. Physical Exam: General Appearance: Alert, cooperative, no distress, appears stated age Lungs: Respirations unlabored, not in acute distress, no accessory muscle recruitment Cardiovascular: Regular rate and rhythm, no lower extremity swelling Abdomen: Soft, non tender to palpation, no rebound or tenderness Skin: Skin color, texture, turgor normal, no rashes or lesions Laboratory Recent Labs 12/21/18 2221 12/22/18 0348 12/23/18 0555 WBC 7.86 6.98 4.93 HGB 12.7 11.3* 11.2* HCT 40.0 35.2* 35.0* PLT 272 233 213 Recent Labs 12/21/18 2221 12/22/18 0348 12/23/18 0555 NA 141 140 141 K 3.7 3.9 4.4 CL 101 104 105 BICARB 26 23 24 BUN 15 13 9 CREATININE 1.02* 0.87 0.79 GLUCOSE 91 86 69 MG -- 2.0 -- PHOS -- 4.3 -- CALCIUM 10.1 9.3 9.2 Recent Labs 12/21/18 2221 12/22/18 0348 12/23/18 0555 ALT 164* 133* 93* AST 97* 72* 37 ALKPHOS 150* 132 121 BILITOT 5.4* 4.8* 5.1* LIPASE 40 -- 16 No results for input(s): INR, PROTIME in the last 72 hours. Radiology No new studies * Kasey Ohara LSW - 12/22/2018 10:37 AM EDT COMPLEX DISCHARGE Date: 12/22/2018 Time: 10:38 AM Patient Name: Bogdan Keen Date of : 2000 Sex: Female Discharge Plan Shared UM/CC and RN Source of Information: Chart Contact Phone Number: Rufina Reid, Living Arrangements: Family members Support Systems: Family members Functional Status: Independent Type of Residence: Private residence Prior to Admission Home Care Services: No Current Home Equipment: None Insurance Coverage for Prescriptions: Yes Anticipated Discharge Plan Anticipated HME: None Anticipated Home Care Needs: None Discharge Readiness Expected Discharge Date: 12/24/18 Barriers to Discharge: Physician consult to clear Chart reviewed. Patient is independent, visiting from [place], [place]. Undergoing GI work up for epigastric and RUQ abdominal pain. Surgery following. ERCP pending. Pt is established with a GI provider as well as PCP in her hometown. Pt has insurance coverage for prescriptions. in this encounter Assessments Diagnosis Abdominal pain, unspecified abdominal location- Primary Nausea and vomiting, intractability of vomiting not specified, unspecified vomiting type Elevated blood pressure reading Elevated blood pressure reading without diagnosis of hypertension Hyperbilirubinemia Disorders of bilirubin excretion Transaminitis Nonspecific elevation of levels of transaminase or lactic acid dehydrogenase (LDH) Elevated serum creatinine Other nonspecific findings on examination of blood Calculus of gallbladder and bile duct with obstruction without cholecystitis Post-operative pain Other acute postoperative pain Acute hepatitis Acute and subacute necrosis of liver Advance Directives Code StatusDate ActivatedDate InactivatedCommentsFull Code12/22/2018 1:22 AM Advance Directive Response Recorded Date/ Time Advance Directives No January 06 12:22pm Summary Purpose Family History No Family History Records FoundNo Family History Records FoundNo Family History Records Found Chief Complaint and Reason for Visit Chief Complaint sore throat, left ea r pain Chief Complaint Admit Date left ear pain, fever April 30, 2025 1 :45pm Reason for Visit Admit Date Contact with or suspected ex posure to severe acute respiratory syndrome April 30, 2025 1:45pm Sore throat April 30, 2025 1: 45pm Additional Source Comments Reason for Visit (unrecogniz ed section and content) ReasonCommentsAbdominal PainStatusReasonSpecialtyDiagnoses / ProceduresReferred By ContactReferred To Contact Diagnoses Hyperbilirubinemia Elevated blood pressure reading Transaminitis Elevated serum creatinine Abdominal pain, unspecified abdominal location Nausea and vomiting, intractability of vomiting not specified, unspecified vomiting type Acute hepatitis Kishan Jerry, DO - 12/22/2018 1:22 AM EDT H&P Notes (unrecognized sect ion and content) HMS HISTORY AND PHYSICAL Patient Name: Bogdan Keen : 2000 MR #: [id number] Admit Date: [id number] Physicians: Alexandrea Foy MD (Family); No ref. provider found (Referring) Bogdan Keen is a 18 y.o. female patient of Alexandrea Foy MD with history of GERD, and gallstones presented with worsening RUQ abdominal pain. RUQ Abdominal pain Common bile duct dilation Cholelithiasis Gallstones, and CBD dilation seen on US and Abdominal CT imaging, no acute cholecystitis Suspect choledocholithiasis Elevated liver enzymes, and jaundice (see below) Patient would likely benefit from ERCP, however is visiting from out of town, and well established with GI in her hometown. Surgery consulted in the ED GI consultation IV protonix daily, PRN zofran Jaundice Transaminitis T bili 5.4, D bili 4.7, Alk phos 150, AST 97, ALT 164 Given 1 L NS in the ED, continue at 125 cc/hr Pending repeat HFP in AM Pending acute hepatitis panel Continue protonix GI consultation, Surgery consultation in ED. Dehydration Poor PO intake x 3-4 days Mildly elevated Cr at 1.02 Continue IVF resuscitation, Repeat labs in AM Admitted From: Home Medication Reconciliation: Verified Quality Measures DVT Prophylaxis: Low risk, ambulate early Jim Catheter: none Disposition Outpatient Testing: Chief Complaint Abdominal pain History of Present Illness 18 yo F presents to the ED with worsening RUQ abdominal pain. States pain started approximately 1 week prior. Pain had gotten significantly worse in the last 3-4 days. Painis made worse by eating, and worse about 30 minutes - 1 hour after eating. She has significant associated nausea and vomiting. States that she hasn't been able to keep food down for the last 3 days. She also noticed her eyes starting to turn yellow today, as well as very dark urine. Describes the pain as a severe ache and pressure like pain in her RUQ. It doesn't radiate. She did have similar issues earlier in the year, and has established with GI in her home city in [facility]. She denies dysuria, fever, chills, CP, diarrhea, constipation, bloody emesis, melena, Of note patient may be interested in discharge after IVF overnight, and further discussions with specialists. She is interested in returning home for further work-up and management. Past Medical History Past Medical History: Diagnosis Date Gall stones GERD (gastroesophageal reflux disease) Past Surgical History Past Surgical History: Procedure Laterality Date ESOPHAGOGASTRODUODENOSCOPY 10/2018 Family History Family History Problem Relation Age of Onset Gallbladder disease Maternal Grandmother Pancreatic cancer Maternal Grandmother Breast cancer Paternal Grandmother Social History Social History Tobacco Use Smoking Status Never Smoker Smokeless Tobacco Never Used Social History Substance and Sexual Activity Alcohol Use Not Currently Social History Substance and Sexual Activity Drug Use Not Currently Allergy Information I have reviewed the patient's allergies. Amoxicillin Home Medications Home medications were reviewed. Review Of Systems All systems have been reviewed and are negative except as noted in HPI or below Constitutional:No fever, no weight loss Eyes:No diplopia ENT:No sinus drainage CV:No chest pain. No ankle swelling Resp:No dyspnea. No wheezing GI:+ abdominal pain.No abdominal distention :No dysuria Neuro:No headache Integumentary:No skin rash. + jaundice MuscSkel:No arthralgias Endo:No polyuria Allergic/Immunologic:No hives Psych:No unusual mood swings. Physical Examination BP (!) 148/114 Pulse 94 Temp 97.9 F (36.6 C) Resp 16 Wt 66.4 kg (146 lb 6.4 oz) LMP 12/18/2018 SpO2 100% General Appearance: alert, well appearing, and in no acute distress. HEENT: Head- normocephalic; Eyes- PERRLA, EOMI, scleral icterus; Ears- external auditory canals clear, hearing intact; Nose- no nasal discharge; Throat- oropharynx normal Cardiovascular: regular rate and rhythm; normal S1, S2; no murmurs, rubs, clicks or gallops; no peripheral edema. Respiratory: lungs clear to auscultation; without wheezes, rales or rhonchi Abdomen: soft,RUQ tenderness, non-distended; positive bowel sounds, no rebound, no guarding Neurological: alert, oriented x 3, normal speech; no focal findings or movement disorder noted Musculoskeletal: no significant deformity or tenderness to palpation Skin: mild jaundice coloration, normal texture and turgor; no lesions or eruptions Psych: normal mood and affect Laboratory and Additional Data Reviewed Laboratory 12/22/18 1:35 AM Radiology 12/22/18 1:35 AM Medications 12/22/18 1:35 AM Expected Discharge/Time Spent Based on current clinical information, the expected discharge date is: today (12/22/2018) in this encounter Jaquan Orr MD - 12/22/2018 3:34 PM EDT Consult Notes (unrecognized section and content) Associated Order(s): IP CONSULT TO GASTROENTEROLOGY CONSULT NOTE Patient Name: Bogdan Keen Admit Date: [id number] MR #: [id number] : 2000 Physicians: Alexandrea Foy MD (Family); No ref. provider found (Referring) Chief Complaint/Reason for Visit: Abdominal pain History of Present Illness: Bogdan Keen is a 18 y.o. y/o female presenting from [employer] competition with c/o epigastric and right upper quadrant abdominal pain that is worsened over the past several days. She lives in [facility] and sees a director channel there and had an EGD in the last few months. He is treated with acid suppression therapy and was doing better. Over the last week shehas had epigastric right upper quadrant pain over the last day or 2 she has had nausea and vomitingand worsening of the pain. She reports some change in her urine is darker than usual she thought her eyes look yellow. The pain is remained constant and moderately severe here in the hospital. The liver enzymes were elevated with total bilirubin the 4-5 range. The common bile duct is dilated on theultrasound imaging. History: Past Medical History: Diagnosis Date Gall stones GERD (gastroesophageal reflux disease) Past Surgical History: Procedure Laterality Date ESOPHAGOGASTRODUODENOSCOPY 10/2018 Family History Problem Relation Age of Onset Gallbladder disease Maternal Grandmother Pancreatic cancer Maternal Grandmother Breast cancer Paternal Grandmother Social History Socioeconomic History Marital status: Single Spouse name: Not on file Number of children: Not on file Years of education: Not on file Highest education level: Not on file Social Needs Financial resource strain: Not on file Food insecurity - worry: Not on file Food insecurity - inability: Not on file Transportation needs - medical: Not on file Transportation needs - non-medical: Not on file Occupational History Not on file Tobacco Use Smoking status: Never Smoker Smokeless tobacco: Never Used Substance and Sexual Activity Alcohol use: Not Currently Drug use: Not Currently Sexual activity: Not on file Other Topics Concern Not on file Social History Narrative Not on file Allergy Information: I have reviewed the patient's allergies. Amoxicillin Home Medications: Outpatient Medications as of 12/22/2018 Medication Sig norgestimate-ethinyl estradiol (ORTHO TRI-CYCLEN,TRINESSA) 0.18/0.215/0.25 mg-35 mcg (28) per tablet Take 1 tablet by mouth daily . Review of Systems: The following system(s) were reviewed and pertinent findings noted: All other systems reviewed and negative other than HPI Physical Examination: Vital Signs: BP 112/69 (BP Location: Right arm, Patient Position: Lying) Pulse (!) 55 Temp 98.2 F (36.8 C) (Oral) Resp 16 Ht 5' 3 Wt 146 lb 6.4 oz (66.4 kg) LMP 12/18/2018 SpO2 98% BMI 25.93 kg/m General: Alert, cooperative, no distress, appears stated age Head: Normocephalic, without obvious abnormality, atraumatic Eyes: PERRL, conjunctiva/corneas clear, EOM's intact, fundi benign both eyes Throat: Lips, mucosa, and tongue normal; teeth and gums normal Neck: Supple, symmetrical, trachea midline, no adenopathy; thyroid: no enlargement/tenderness/nodules; no carotid bruit or JVD Back: Symmetric, no curvature, ROM normal, no CVA tenderness Lungs: Clear to auscultation bilaterally, respirations unlabored,normal respiratory effort Chest Wall: No tenderness or deformity Cardiovascular: Regular rate and rhythm, S1 and S2 normal, no murmur, rub or gallop; Pulses 2+ and symmetric all extremities Abdomen: Soft, non-tender, bowel sounds active all four quadrants,no masses, no organomegaly Extremities: Normal, atraumatic, no cyanosis or edema Skin: Skin color, texture, turgor normal, no rashes or lesions Musculoskeletal: Full range of motion of all extremities; no joint edema Neurologic: CNII-XII intact; normal strength, sensation and reflexes throughout Psych: Mood and affect appropriate Laboratory and Additional Data Reviewed: Laboratory 12/22/18 3:38 PM Radiology 12/22/18 3:38 PM Medications 12/22/18 3:38 PM Transcriptions 12/22/18 3:38 PM Assessment and Plan: #1 cholelithiasis #2 abnormal liver enzymes #3 dilated common bile duct on ultrasound -she most likely has choledocholithiasis in addition to the cholelithiasis. I discussed ERCPwith the patient and her mother. 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 They would like to proceed with ERCP and potential sphincterotomy and stone removal. General surgery is alsofollowing the patient for potential lap laparoscopic cholecystectomy. I would recommend IV antibiotics because the potential for an obstructed common bile duct. No new Assessment & Plan notes have been filed under this hospital service since the last note was generated. Service: Gastroenterology * Shelley Gorman DO - 12/22/2018 1:13 AM EDT GENERAL SURGERY CONSULTATION NOTE Patient Name: Bogdan Keen MR #: [id number] [facility] #: [id number] Attending: Jackie Chowdhury MD Resident: Shelley Gorman DO Contact: [phone]/Plan Choledocholithiasis Cholelithiasis Transaminitis Hyperbilirubinemia - afebrile, no leukocytosis, hemodynamically stable - admit to [facility] IVF - NPO - repeat labs in AM - pain and nausea control - consult GI for ERCP Plan discussed with attending. Subjective Bogdan Keen is a 18 y.o. female with PMH of gastritis/esophagitis and gallstones who presents with epigastric and RUQ abdominal pain for the past 3 days. Associated with nausea and vomiting. Statespain is sharp and intermittent, worse after meals especially with greasy foods, improved after episodes of emesis. Also report yellowing of her sclera and skin. Denies any fevers or chills. History of epigastric and RUQ abdominal pain that started in September 2018. Was evaluated by GI and an EGD was done in October. Mom at bedside reports esophagitis and gastritis was found so pt was started on carafate and protonix with improvement in symptoms. Past Medical History: Diagnosis Date Gall stones GERD (gastroesophageal reflux disease) Past Surgical History: Procedure Laterality Date ESOPHAGOGASTRODUODENOSCOPY 10/2018 Family History Problem Relation Age of Onset Gallbladder disease Maternal Grandmother Pancreatic cancer Maternal Grandmother Breast cancer Paternal Grandmother Social History Socioeconomic History Marital status: Single Spouse name: Not on file Number of children: Not on file Years of education: Not on file Highest education level: Not on file Social Needs Financial resource strain: Not on file Food insecurity - worry: Not on file Food insecurity - inability: Not on file Transportation needs - medical: Not on file Transportation needs - non-medical: Not on file Occupational History Not on file Tobacco Use Smoking status: Never Smoker Smokeless tobacco: Never Used Substance and Sexual Activity Alcohol use: Not Currently Drug use: Not Currently Sexual activity: Not on file Other Topics Concern Not on file Social History Narrative Not on file Allergy Information: I have reviewed the patient's allergies. Amoxicillin Home Medications: Outpatient Medications as of 12/21/2018 Medication Sig norgestimate-ethinyl estradiol (ORTHO TRI-CYCLEN,TRINESSA) 0.18/0.215/0.25 mg-35 mcg (28) per tablet Take 1 tablet by mouth daily . Review of Systems: Constitutional: No fever, no weight loss Eyes: scleral icterus CV: No chest pain. No ankle swelling Respiratory: No dyspnea. No wheezing GI: reports abdominal pain. No abdominal distention : No dysuria Neurologic: No headache Integumentary: No skin rash Musculoskeletal: No arthralgias Endocrine: No polyuria Hematology/Lymphatic: No apparent lymphadenopathy Objective Vital signs in last 24 hours: Temp: [97.9 F (36.6 C)] 97.9 F (36.6 C) Heart Rate: [94] 94 Resp: [16] 16 BP: (148)/(114) 148/114 Intake/Output last 3 shifts: No intake/output data recorded. Intake/Output this shift: No intake/output data recorded. Physical Exam: General Appearance: Alert, cooperative, no distress, appears stated age Head: Normocephalic, without obvious abnormality, atraumatic Eyes: Scleral icterus, EOM's intact Throat: Lips, mucosa, and tongue normal; teeth and gums normal Neck Supple, symmetrical, trachea midline Back: Symmetric, no curvature, ROM normal, no CVA tenderness Lungs: Respirations unlabored, not in acute distress, no accessory muscle recruitment Chest wall: No tenderness or deformity Abdomen: Soft, non-distended, RUQ and epigastric regions tender to palpation, no palpable masses ororganomegaly, no rebound, no rigidity, no guarding. Ext: Extremities equal with normal ROM; no tenderness, swelling or joint deformities Skin: Skin color, texture, turgor normal, no rashes or lesions Neurologic: CNII-XII grossly intact Psych: Mood and affect appropriate Laboratory Recent Labs 12/21/18 222 WBC 7.86 HGB 12.7 HCT 40.0 PLT 272 Recent Labs 12/21/18 222 NA 141 K 3.7 CL 101 BICARB 26 BUN 15 CREATININE 1.02* GLUCOSE 91 CALCIUM 10.1 Recent Labs 12/21/18 222 ALT 164* AST 97* ALKPHOS 150* BILITOT 5.4* LIPASE 40 No results for input(s): INR, PROTIME in the last [address] Abdomen Pelvis With IV Contrast Only Preliminary Result 1. Mild intra- and extrahepatic ductal dilatation, as was seen on recent ultrasound of the right upper quadrant. No identifiable cause. Known gallstones were better seen by ultrasound. 2. No finding to account for patient's right lower quadrant abdominal pain. Normal appendix. 3. Bilateral L5 pars defects with minimal anterolisthesis of L5 on S1. This can be a cause of chronic low back pain in some patients. [facility] Workstation ID: [id number] US Abdomen Limited Study Final Result 1. Common bile duct is dilated with some intrahepatic duct dilatation. 2. Cholelithiasis without evidence of acute cholecystitis. Workstation ID: [id number] Us Abdomen Limited Study Result Date: 12/22/2018 EXAMINATION: RIGHT UPPER QUADRANT ULTRASOUND 12/21/2018 11:54 pm COMPARISON: None. HISTORY: ORDERING SYSTEM PROVIDED HISTORY: Epigastric RUQ and RLQ pain; TECHNOLOGIST PROVIDED HISTORY: Reason for Exam: abd pain Illness/Other Acuity: Acute Cancer History: no Surgery, Radiation History: no Type of Encounter: Initial Additional signs and symptoms: none ORDERING SYSTEM PROVIDED DIAGNOSIS CODES: R10.9 Abdominal pain, unspecified abdominal location R11.2 Nausea and vomiting, intractability of vomitingnot specified, unspecified vomiting type R03.0 Elevated blood pressure reading E80.6 Hyperbilirubinemia R74.0 Transaminitis R79.89 Elevated serum creatinine FINDINGS: LIVER: Liver echogenicity is mildly heterogeneous. There is intrahepatic biliary ductal dilatation. BILIARY SYSTEM: Gallstones within the gallbladder. No gallbladder wall thickening. Sonographic Cadet sign is absent. Common bile duct is dilated measuring up to 10 mm with some tapering to 7 mm within the pancreatic head. RIGHT KIDNEY: The right kidney is grossly unremarkable without evidence of hydronephrosis. PANCREAS: Visualized portions of the pancreas are unremarkable. OTHER: No evidence of right upper quadrant ascites. 1. Common bile duct is dilated with some intrahepatic duct dilatation. 2. Cholelithiasis without evidence of acute cholecystitis. Workstation ID: [id number] Ct Abdomen Pelvis With Iv Contrast Only Result Date: 12/22/2018 EXAMINATION: CT OF THE ABDOMEN AND PELVIS WITH CONTRAST 12/22/2018 TECHNIQUE: CT of the abdomen and pelvis was performed with the administration of intravenous contrast. Multiplanar reformatted images are provided for review. Dose modulation, iterative reconstruction, and/or weight based adjustment of the mA/kV was utilized to reduce the radiation dose to as low as reasonably achievable. COMPARISON: Correlation is made to ultrasound of the abdomen dated 12/21/2018. HISTORY: ORDERING SYSTEM PROVIDED HISTORY: Epigastric, RUQ, RLQ pain; TECHNOLOGIST PROVIDED HISTORY: Reason for Exam: Epigastric, RUQ, RLQ pain Illness/Other Acuity: Acute Type of Encounter: Initial Additional signs and symptoms: vomit ORDERING SYSTEM PROVIDED DIAGNOSIS CODES: R10.9 Abdominal pain, unspecified abdominal location R11.2 Nausea and vomiting, intractability of vomiting not specified, unspecified vomiting type R03.0Elevated blood pressure reading E80.6 Hyperbilirubinemia R74.0 Transaminitis R79.89 Elevated serum c reatinine Acute right upper and right lower quadrant abdominal pain. Initial encounter. FINDINGS: Lower Chest: Lung bases are clear. Organs: Mild intra- and extrahepatic ductal dilatation, as was seen on recent ultrasound. Known stones in the gallbladder are better seen by ultrasound. Portal vein and splenic vein opacify normally. No focal hepatic lesion. Spleen, pancreas, adrenal glands, and kidneys are unremarkable. Kidneys enhance symmetrically. No hydronephrosis. GI/Bowel: Moderate volume of stool in the colon. No evidence of appendiceal inflammation. There is no evidence of bowel obstruction or free intraperitoneal air. Pelvis: Uterus and adnexa are grossly unremarkable. Bladder is unde rdistended. No inguinal or pelvic adenopathy. Peritoneum/Retroperitoneum: Abdominal aortic caliber is normal. No retroperitoneal adenopathy. Bones/Soft Tissues: No aggressive lytic or blastic bony lesion. Bilateral L5 pars defects with minimal anterolisthesis of L5 on S1. 1. Mild intra- and extrahepatic ductal dilatation, as was seen on recent ultrasound of the right upper quadrant. No identifiable cause. Known gallstones were better seen by ultrasound. 2. No finding to account for patient's right lower quadrant abdominal pain. Normal appendix. 3. Bilateral L5 pars defects with minimal anterolisthesis of L5 on S1. This can be a cause of chronic low back pain in some patients. [facility]/[employer] Workstation ID: [id number] Associated attestation - Jackie Chowdhury MD - 12/22/2018 8:01 PM EDT General surgery attending addendum I have reviewed, examined, and assessed the patient and agree with the resident's documentation, except as stated below. Pt is a 18 y/o F with acute onset jaundice, abdominal pain and nausea, who was found to have obstructive jaundice due to suspected choledocholithiasis. Pt was found to have intra/extrahepatic ductal dilatation on CT & US. Pt has no signs of concurrent acute cholecystitis. Recommend ERCP followed by lap sana. Possible lap asna on 12/24/2018. Discussed with the patient and her mother. Jackie Chowdhury MD in this encounter Elena Corona RN - 12/23/2018 12:15 PM EDT Nursing Notes (unrecognized section and content) 7 ml of Isovue injected in papilla during ERCP. in this encounter Nory Theodore RN - 12/22/2018 3:04 AM Nory Fitzgerald RN - 12/22/2018 2:17 AM Francis Cardenas PA-C - 12/21/2018 11:19 PM EDT ED Notes (unrecognized secti on and content) Patient is resting comfortably. Call light within reach. Patient updated on continued plan of care. Pt resting comfortably in bed. Respirations even, unlabored, and regular. Bed in lowest position, side rails up x2. ABCs intact. NAD. Will continue to monitor. Updated on plan of care. Pt's mother at bedside. ED PROVIDER NOTE [facility] NAME: Bogdan Keen AGE: 18 y.o. : 2000 VISIT DATE: 12/21/2018 CSN: [id number] PCP: Alexandrea Foy MD Chief Complaint Patient presents with Abdominal Pain HPI Patient is an 18-year-old female with PMH of GERD and gallstones presenting to the ED for evaluation of abdominal pain and nausea/vomiting. Reports onset of abdominal pain 5 days ago, gradually worsening over the past 2-3 days. Location epigastric, right upper quadrant, and right lower quadrant. Pain does not radiate. Pain is 9/10 severity, constant, sharp. No specific aggravating or relieving factors. Patient reports nausea and vomiting worsening over the past 2-3 days. She states she has not been able to keep any food down due to her vomiting. Reports scleral icterus. Denies fever, chills. Denies diarrhea, blood in stool. Denies chest pain, shortness of breath, cough. Patient states she li ves in [facility] and is visiting [place] this weekend. Reports having a thorough GI workup in October 2018 where she was diagnosed with GERD and gallstones. Patient states she has been taking Zofran, Carafate, and Pantoprazole for recommendation of her GI doctor. Past Medical History: Diagnosis Date Gall stones GERD (gastroesophageal reflux disease) Past Surgical History: Procedure Laterality Date ESOPHAGOGASTRODUODENOSCOPY 10/2018 Family History Problem Relation Age of Onset Gallbladder disease Maternal Grandmother Pancreatic cancer Maternal Grandmother Breast cancer Paternal Grandmother Social History Socioeconomic History Marital status: Single Spouse name: Not on file Number of children: Not on file Years of education: Not on file Highest education level: Not on file Social Needs Financial resource strain: Not on file Food insecurity - worry: Not on file Food insecurity - inability: Not on file Transportation needs - medical: Not on file Transportation needs - non-medical: Not on file Occupational History Not on file Tobacco Use Smoking status: Never Smoker Smokeless tobacco: Never Used Substance and Sexual Activity Alcohol use: Not Currently Drug use: Not Currently Sexual activity: Not on file Other Topics Concern Not on file Social History Narrative Not on file Previous Medications Medication Sig norgestimate-ethinyl estradiol (ORTHO TRI-CYCLEN,TRINESSA) 0.18/0.215/0.25 mg-35 mcg (28) per tablet Take 1 tablet by mouth daily . ondansetron (ZOFRAN) 4 MG tablet Take 4 mg by mouth every 8 (eight) hours as needed for nausea . pantoprazole (PROTONIX) 20 MG tablet Take 20 mg by mouth daily . sucralfate (CARAFATE) 1 gram tablet Take 1 g by mouth 4 (four) times a day before meals . Allergies Allergen Reactions Amoxicillin Hives Review of Systems Constitutional: Negative for chills, diaphoresis, fatigue and fever. Eyes: Negative for visual disturbance. Respiratory: Negative for cough and shortness of breath. Cardiovascular: Negative for chest pain, palpitations and leg swelling. Gastrointestinal: Positive for abdominal pain, nausea and vomiting. Negative for blood in stool, constipation and diarrhea. Genitourinary: Negative for dysuria, frequency, hematuria and urgency. Musculoskeletal: Negative for back pain and neck pain. Skin: Negative for rash. Neurological: Negative for dizziness, light-headedness and headaches. Psychiatric/Behavioral: Negative for behavioral problems and confusion. Patient Vitals for the past 24 hrs: BP Temp Pulse Resp SpO2 Weight 12/21/18 2217 (!) 148/114 12/21/18 2216 97.9 F (36.6 C) 94 16 100 % 12/21/18 2214 66.4 kg (146 lb 6.4 oz) Physical Exam Constitutional: She is oriented to person, place, and time. She appears well- developed and well-nourished. HENT: Head: Normocephalic and atraumatic. Mouth/Throat: Oropharynx is clear and moist. Eyes: Pupils are equal, round, and reactive to light. Scleral icterus is present. Neck: Normal range of motion. Cardiovascular: Normal rate, regular rhythm, normal heart sounds and intact distal pulses. Pulmonary/Chest: Effort normal and breath sounds normal. No respiratory distress. Abdominal: Soft. Bowel sounds are normal. There is tenderness in the right upper quadrant, right lower quadrant and epigastric area. Musculoskeletal: Normal range of motion. Lymphadenopathy: She has no cervical adenopathy. Neurological: She is alert and oriented to person, place, and time. Skin: Skin is warm and dry. Capillary refill takes less than 2 seconds. Skin does not appear jaundice Psychiatric: She has a normal mood and affect. Nursing note and vitals reviewed. Laboratory & Radiographic Imaging (if done): Results for orders placed or performed during the hospital encounter of 12/21/18 Lavender Top Result Value Ref Range Extra Tube Hold for add-ons. Mint Green Top Result Value Ref Range Extra Tube Hold for add-ons. Gold Top Result Value Ref Range Extra Tube Hold for add-ons. Light Blue Top Result Value Ref Range Extra Tube Hold for add-ons. Lopez Top Result Value Ref Range Extra Tube Hold for add-ons. Urinalysis Result Value Ref Range Color, Urine Sanjuana (A) Colorless, Yellow Clarity, Urine Cloudy (A) Clear Specific Dewar 1.031 (H) 1.005 - 1.025 pH, Urine 5.0 5.0 - 7.0 Protein, Urine 30 (A) Negative mg/dL Glucose, Urine Negative Negative mg/dL Ketones, Urine Negative Negative mg/dL Bilirubin, Urine Positive (A) Negative Urobilinogen, Urine >=4.0 (A) <2.0 mg/dL Blood, Urine Moderate (A) Negative Nitrite, Urine Negative Negative Leukocyte Esterase, Urine Negative Negative WBCs, Urine 2 0 - 5 /hpf RBCs, Urine 2 0 - 3 /hpf Bacteria, Urine None Seen None Seen /hpf Squamous Epithelial 7 (H) 0 - 4 /hpf Amorphous Crystals Few (A) None Seen, Rare /hpf Mucus, Urine Few (A) None Seen, Rare /lpf Lipase Result Value Ref Range Lipase 40 15 - 65 U/L Comprehensive Metabolic Panel Result Value Ref Range Sodium 141 135 - 145 mmol/L Potassium 3.7 3.5 - 5.1 mmol/L Chloride 101 98 - 108 mmol/L Bicarbonate 26 21 - 32 mmol/L Anion Gap 18 10 - 20 mmol/L Glucose 91 65 - 99 mg/dL BUN 15 8 - 25 mg/dL Creatinine 1.02 (H) 0.50 - 1.00 mg/dL eGFR 80 >=60 mL/min/1.73 m2 BUN/Creatinine Ratio 14.7 10.0 - 20.0 Total Protein 7.5 6.0 - 8.0 g/dL Albumin 4.7 (H) 3.2 - 4.5 g/dL Calcium 10.1 8.4 - 10.2 mg/dL Alkaline Phosphatase 150 (H) 40 - 140 U/L AST 97 (H) 0 - 45 U/L ALT 164 (H) 0 - 40 U/L Total Bilirubin 5.4 (H) 0.0 - 1.3 mg/dL Bilirubin, Direct Result Value Ref Range Bilirubin, Direct 4.4 (H) 0.0 - 0.4 mg/dL Acetaminophen Level Result Value Ref Range Acetaminophen <5.0 0.0 - 30.0 mcg/mL POC , Urine Result Value Ref Range POC Preg Test, Ur Negative Negative Internal Control Pass Spec Grav, UA 1.005 - 1.025 CBC Auto Differential Result Value Ref Range WBC 7.86 4.50 - 11.00 K/mcL RBC 4.63 4.10 - 5.10 M/mcL Hemoglobin 12.7 12.0 - 16.0 g/dL Hematocrit 40.0 36.0 - 46.0 % MCV 86.4 78.0 - 102.0 fL MCH 27.4 25.0 - 35.0 pg MCHC 31.8 31.0 - 37.0 g/dL Platelets 272 150 - 400 K/mcL RDW - CV 12.9 11.6 - 14.8 % MPV 10.8 9.0 - 15.5 fL Neutrophils 58.9 % Lymphocytes 32.8 % Monocytes 5.7 % Eosinophils 1.7 % Basophils 0.6 % IG Percent 0.30 % Neutrophils Abs 4.63 1.70 - 7.00 K/mcL Lymphocytes Abs 2.58 0.90 - 4.00 K/mcL Monocytes Abs 0.45 0.30 - 0.90 K/mcL Eosinophils Abs 0.13 0.00 - 0.50 K/mcL Basophils Abs 0.05 0.00 - 0.30 K/mcL IG Absolute 0.02 0.00 - 0.30 K/mcL Nucleated RBC 0.0 % Nucleated RBC Abs 0.00 0.00 - 0.00 K/mcL CT Abdomen Pelvis With IV Contrast Only Preliminary Result 1. Mild intra- and extrahepatic ductal dilatation, as was seen on recent ultrasound of the right upper quadrant. No identifiable cause. Known gallstones were better seen by ultrasound. 2. No finding to account for patient's right lower quadrant abdominal pain. Normal appendix. 3. Bilateral L5 pars defects with minimal anterolisthesis of L5 on S1. This can be a cause of chronic low back pain in some patients. [facility] Workstation ID: [id number] US Abdomen Limited Study Final Result 1. Common bile duct is dilated with some intrahepatic duct dilatation. 2. Cholelithiasis without evidence of acute cholecystitis. Workstation ID: [id number] Procedures MDM Patient is an 18-year-old female with PMH of GERD and gallstones presenting to the ED for evaluation of abdominal pain and nausea/vomiting. Reports onset of abdominal pain 5 days ago, gradually worsening over the past 2-3 days. Location epigastric, right upper quadrant, and right lower quadrant. Pain is not radiating. Pain is 9/10 severity, constant, sharp. No specific aggravating or relieving factors. Patient reports nausea and vomiting worsening over the past 2-3 days. She states she has not been able to keep any food down due to her vomiting. Reports scleral icterus. Denies fever, chills. Denies diarrhea, blood in stool. Denies chest pain, shortness of breath, cough. On exam, patient is well-appearing and in no acute distress. She is afebrile and not tachycardic. CBC revealed no leukocytosis or anemia. CMP revealed elevated LFTs: Alk phos 150, AST 97, ALT 164. Total bilirubin elevated 5.4. Direct bilirubin elevated at 4.4. Albumin elevated at 4.7. Creatinine also slightly elevated at 1.02. Acute hepatitis panel ordered. Acetaminophen level negative. Lipase normal at 40. Urinalysis appears contaminated and positive for bilirubin. POC urine negative. Ordered normal saline bolus 1 L, Zofran 4 mg IV, and GI cocktail. Patient reports some alleviation of her pain and nausea after these interventions. US abdomen: 1. Common bile duct is dilated with some intrahepatic duct dilatation. 2. Cholelithiasis without evidence of acute cholecystitis. CT abdomen pelvis with IV contrast: 1. Mild intra and extrahepatic ductal dilatation, as was seen on recent ultrasound of the right upper quadrant. No identifiable cause. Known gallstones were better seen by ultrasound. 2. Normal appendix. 3. Bilateral L5 pars defects with minimal anterolisthesis of L5 on S1. This can be a cause of chronic low back pain in some patients. Patient was informed of these findings. Consulted general surgery and spoke with Dr. Chowdhury, and general surgery resident has come to evaluate the patient. Patient will need to be admitted, and may likely to benefit from ERCP. Patient understands and is agreeable with the plan of care. Clinical Impression: SNOMED CT(R) 1. Abdominal pain, unspecified abdominal location ABDOMINAL PAIN 2. Nausea and vomiting, intractability of vomiting not specified, unspecified vomiting type NAUSEA AND VOMITING 3. Elevated blood pressure reading ELEVATED BLOOD PRESSURE 4. Hyperbilirubinemia HYPERBILIRUBINEMIA 5. Transaminitis ENZYME LEVEL - FINDING 6. Elevated serum creatinine SERUM CREATININE RAISED ED Disposition ED Disposition Condition Comment Hospitalize Phone call required?: No Follow-up Information Follow-up information has not been specified. Contact information for after-discharge care Follow-up information has not been specified. Francis Huffman PA-C 12/22/18 0126 * Brannon Mansfield RN - 12/21/2018 10:23 PM EDT Pt to ED with CC of abd pain and vomiting x2 days. Pt is from out of town. Has had a full GI workupwith a specialist with diagnoses of GERD and gallstones. Pt color appears green and pt is tearful during triage.family voices concern for jaundice. Pain is located to upper abdomen. in this encounter Plan of Care - Eleanor Carr RN - 12/25/2018 12:06 PM EDTUtilization Review - Sylvia Ragland RN - 12/24/2018 4:03 PM EDT Miscellaneous Notes (unrecog nized section and content) Patient being discharged. Reviewed AVS with patient and parents, they verbalized understanding and had no questions at this time. School excuse, AVS, and 3 paper prescriptions provided. Patient and family verbalized having all belongings they came in with. [facility] Utilization Review Notes EMERGENCY TEMPLATE HISTORY OF PRESENT ILLNESS: 18 y.o. female patient of Alexandrea Foy MD with history of GERD, and gallstones presented with worsening RUQ abdominal pain VITAL SIGNS: BP (!) 148/114 Pulse 94 Temp 97.9 F (36.6 C) Resp 16 SpO2 100% EKG: WEIGHT: Wt 66.4 kg (146 lb 6.4 oz) LABS: (Abnormal / Relevant): T bili 5.4, D bili 4.7, Alk phos 150, AST 97, ALT 164 Cr at 1.02 IMAGING: (Abnormal / Relevant): CT AB 1. Mild intra- and extrahepatic ductal dilatation, as was seen on recent ultrasound of the right upper quadrant. No identifiable cause. Known gallstones were better seen by ultrasound. 2. No finding to account for patient's right lower quadrant abdominal pain. Normal appendix. 3. Bilateral L5 pars defects with minimal anterolisthesis of L5 on S1. This can be a cause of chronic low back pain in some patients. US Ab 1. Common bile duct is dilated with some intrahepatic duct dilatation. 2. Cholelithiasis without evidence of acute cholecystitis. ED TX: 1000ml iv bolus, iv zofran, ivf 125ml/hr DX/ASSESSMENT / PLAN: RUQ Abdominal pain Common bile duct dilation Cholelithiasis Gallstones, and CBD dilation seen on US and Abdominal CT imaging, no acute cholecystitis Suspect choledocholithiasis Elevated liver enzymes, and jaundice (see below) Patient would likely benefit from ERCP, however is visiting from out of town, and well established with GI in her hometown. Surgery consulted in the ED GI consultation IV protonix daily, PRN zofran Jaundice Transaminitis T bili 5.4, D bili 4.7, Alk phos 150, AST 97, ALT 164 Given 1 L NS in the ED, continue at 125 cc/hr Pending repeat HFP in AM Pending acute hepatitis panel Continue protonix GI consultation, Surgery consultation in ED. Dehydration Poor PO intake x 3-4 days Mildly elevated Cr at 1.02 Continue IVF resuscitation, Repeat labs in AM ------- GI cs Assessment and Plan: #1 cholelithiasis #2 abnormal liver enzymes #3 dilated common bile duct on ultrasound -she most likely has choledocholithiasis in addition to the cholelithiasis. I discussed ERCPwith the patient and her mother. 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 They would like to proceed with ERCP and potential sphincterotomy and stone removal. General surgery is alsofollowing the patient for potential lap laparoscopic cholecystectomy. I would recommend IV antibiotics because the potential for an obstructed common bile duct Plan Lap vs open cholecystectomy MEDS / ORDERS: GI cs, ERCP, Surg Cs, iv cipro, npo, iv hydralazine prn, iv dilaudid prn, iv toradol prn, ivf 125ml/hr, iv zofran prn, DISPO: tbd * Brief Op Note - Rickey Dean DO - 12/24/2018 2:54 PM EDT Brief Post Operative Note Patient Name: Bogdan Keen : 2000 (18 y.o.) Date of Service: 12/21/2018 - 12/24/2018 CSN: [id number] Procedure(s): CHOLECYSTECTOMY LAPAROSCOPIC POSSIBLE OPEN Pre-Operative Diagnoses: * Cholelithiasis Post-Operative Diagnoses: * Same as Pre-Op Diagnosis Surgeon(s) and Role: * Jackie Chowdhury MD - Primary * Rickey Dean DO - Resident - Assisting Anesthesiologist: Gonzalo Rossi MD; Dax Murphy MD FISHER TERRAPIN: Debbi Albarran CRNA Radiator Core Tester: Vesta Lester RN Radiator Core Tester Relief: Anai Rand RN Scrub Person: ST Susana Anesthesia Specialist: Pnueet Nguyen Operative findings: Cholelithiasis Intra and immediate post-operative complications: None Type of anesthesia used: General Estimated blood loss: 10 mL Estimated urine output: 0 mL Specimen(s): ID Type Source Tests Collected by Time Destination A : Gallbladder Tissue Gallbladder TISSUE EXAM Jackie Chowdhury MD 12/24/2018 1441 Implant(s): * No implants in log * Drain(s): Wound(s): Incision 12/24/18 Abdomen (umbilicus) (Active) Rickey Dean DO 12/24/2018 2:54 PM * Quick Note - Regina Montes CNP - 12/23/2018 2:17 PM EDT Case reviewed, HCG ordered/pending, standing orders for CBC and CMP. Adm 12/22/18: RUQ Abdominal pain, Common bile duct dilation, Cholelithiasis PMH: GERD VS 12/23/18: Soft Bp 95/57 12/23/18: Hgb 11.2; no current type/screen 12/23/18: Na 141, K+ 4.4, Glu 69, ALT 93 * Plan of Care - Melina Shaffer RN - 12/23/2018 2:08 AM EDT Patients states pain comes and goes. Discussed the importance of taking medication as prescribed, proper storage and disposal. Discuss DVPRS and gave patient handouts. * Quick Note - Franny Dela Cruz MD - 12/22/2018 8:10 AM EDT F/u admit 12/22/18 H&P, VS, Labs, Imaging, Microbiology, Cardiology, Transcripts reviewed by me. Pt . States she is having pain ruq and middle of stomach no radiation to rt side or back or shoulder. Mild nausea. A/ox3, moving ext no edema, dry rrr w/o m ctab w/o wsoft ttp epigastric and ruq w/o r but with vol guarding. 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 * ED Attestation Note - Adelia Wagner DO - 12/21/2018 11:18 PM EDT ED Attestation I personally interviewed the patient. I personally examined the patient. I discussed the patient with INSURANCE HEALTHCARE REPRESENTATIVE/PA. I agree with the INSURANCE HEALTHCARE REPRESENTATIVE/PA treatment plan. I agree with the INSURANCE HEALTHCARE REPRESENTATIVE/PA plan of care. I agree with the INSURANCE HEALTHCARE REPRESENTATIVE/PA dispo as documented. Patient is an 18-year-old female with a history of gallstones and gastroesophageal reflux disease who presents with abdominal pain since last Sunday. She states for the past 2 days she has had nauseaand nonbloody vomiting. She denies any chronic alcohol or ibuprofen use. She denies any contact with persons with similar symptoms. She denies any history of abdominal surgeries. She denies any headache, dizziness, chest pain, shortness of breath, fevers, chills, or any changes with urination or bowel habits. She denies any rashes or recent upper respiratory infection symptoms. On physical exam, the patient was neurologically intact with no focal neurologic deficits. Muscle strength 5/5 upper and lower extremities bilaterally. Sensation intact bilaterally. Alert and nontoxic-appearing. Scleral icterus noted. Lying in the bed in no acute distress. Lungs are clear to auscultation bilaterally.Heart was regular rhythm and normal rate. Diffuse upper abdominal tenderness without guarding or rig idity. Bowel sounds are present. No neck or back tenderness. No clinical signs of DVT. Symmetric distal pulses. CT of abdomen and pelvis, right upper quadrant ultrasound, lab work, and urinalysis were ordered. The risks and benefits of obtaining a CT scan were discussed and the patient was informedof the accumulative radiation risk, and its association with cancer. After discussion, the patient wished to proceed with the CT scan. Urine was negative. CBC, acetaminophen level, and lipase were within normal limits. CMP showed transaminitis with an elevated total bilirubin and an elevated serum creatinine of 1.02. Urinalysis was contaminated and was positive for bilirubin. Direct bili romano was elevated at 4.4. CT the abdomen and pelvis showed mild intra-and extrahepatic ductal dilatation without identifiable calls and showed bilateral L5 pars defects with minimal anterolisthesis of L5 on S1. Ultrasound showed a dilated common bile duct with some intrahepatic duct dilatation and cholelithiasis without evidence of acute cholecystitis. The patient was informed of the findings. Surgery was consulted and I spoke with Dr. Chowdhury who is recommending further evaluation with an ERCP. The patient was admitted for further care. in this encounter INFORMATION SOURCE (unrecogn ized section and content) DATE CREATED AUTHOR 12/28/2018 [facility] DATE CREATED AUTHOR AUTHOR'S ORGANIZ ATION 01/14/2020 [facility] DATE CREATED AUTHOR AUTHOR'S ORGANIZ ATION 08/01/2023 [facility] EPIC Care Teams (unrecognized sec tion and content) Team Status: Active Member Role Status Dates Aelxandrea Foy MD Primary Care Provider Active Team Status: Inactive Member Role Status Dates Alexandrea Foy MD Primary Care Provider Active Start: April 16, 2024 End: April 16marlene De La Garza APRNAtdanni ProviderActiveStart: April 16, 2024 End: April 16, 2024 Team Status: Inactive Member Role Status Dates Alexandrea Foy MD Primary Care Provider Active Start: April 30, 2025 End: April 30, 2025Cris Castanon APRN INSURANCE HEALTHCARE REPRESENTATIVE-CAttending Provider ActiveStart: April 30, 2025 End: April 30, 2025 Goals (unrecognized section and content) Goals may be documented in a n alternate section FOR RECORDS PERTAINING TO PATIENTS WHO ARE OR HAVE BEEN ENROLLED IN A CHEMICAL DEPENDENCY/SUBSTANCEABUSE PROGRAM, SOME INFORMATION MAY BE OMITTED. This clinical summary was aggregated from multiple sources. Caution should be exercised in using it in the provision of clinical care. This summary normalizes information from multiple sources, and as a consequence, information in this document may materially change the coding, format and clinical context of patient data. In addition, data may be omitted in some cases. CLINICAL DECISIONS SHOULD BE BASED ON THE PRIMARY CLINICAL RECORDS. [employer] provides no warranty or guarantee of the accuracy or completeness of information in this document.
--- OUTSIDE RECORDS SUMMARY | 2025-07-08 14:10 | XMS_ITS | CCD ---
Author Organization [facility] Inform ion Partnership [facility] Care Team Providers Care Resin Mixer Name Role Phone Alexandrea Foy Primary Care Provider ALEXANDREA FOY Primary Care Unavailable [facility] Consulting KISHAN Langston Admitting Unavail [...] [employer] Unavailable Brooke Sena Unavailable MAYLIN FLOR Attending Unavailable Alexandrea Foy MD Primary Care Provider Cris Castanon APRN Attending Provider Allergies Allergy ClassificationReported Allergen(s)Allergy TypeDate of OnsetReaction(s) Facility (5 sources)Amoxicillin; Translations: [AMOXICILLIN]Drug Pkbdfpv85-37-9108Zwuhm [facility] (1 source)AmoxicillinDrug Mygxrfz18-85-5437Hdw [facility] (2 sources)PenicillinsAllergy to mayksyton54-00-8394NrqwkVtibjjxfhGuernsey [facility] Medications Current Medications MedicationDrug Class(es)DatesSig (Normalized)Sig (Original)acetaminophen 325 mg / HYDROcodone bitartrate 5 mg oral tablet (2 sources)Opioid AgonistStart: 12-25-2018 End: 09-09-6786lctf 1 tablet by mouth every six hours as needed for pain HYDROcodone-acetaminophen (NORCO) 5-325 mg per tablet Indications: Post- operative pain Take 1 (one)tablet by mouth every 6 (six) hours as needed (moderate pain) . 20 tablet 0 12/25/2018 01/01/2019 ActiveStart: 12-25-2018 End: 16-91-7980jbak 1 tablet by mouth every six hours as neededHYDROcodone- acetaminophen (NORCO) 5-325 mg per tablet 1 tabletNo Name (No Known Home Meds) (1 source)Start: 91-90-1138Hr Name (No Known Home Meds) Active April 30, 2025 12:00amondansetron 4 mg oral tablet (8 sources)Serotonin-3 Receptor AntagonistStart: 12-25-2018 End: 83-19-9629odxp 1 tablet by mouth every eight hours as neededondansetron (ZOFRAN) 4 MG tablet Take 1 (one) tablet (4 mg total) by mouth every 8 (eight) hours asneeded for nausea . 20 tablet 0 12/25/2018 01/24/2019 ActiveStart: 12-25-2018 End: 81-74-5093zbnf 1 tablet by mouth every eight hours [...] or as directed by anesthesiaStart: 12-24-2018 End: 60-41-6064adligaofank (ZOFRAN) injection 4 mgStart: 12-21-2018 End: 88-41-6618yovk 4 mg intravenous route every four hours as neededondansetron (ZOFRAN) injection 4 mgsucralfate 1000 mg oral tablet (1 source)Aluminum Complextake 1 tablet by mouth four times daily before mealtimesucralfate (CARAFATE) 1 gram tablet Take 1 g by mouth 4 (four) times a day before meals . 0 Active Completed/Discontinued Medications MedicationDrug Class(es)DatesSig (Normalized)Sig (Original)acetaminophen 325 mg oral tablet (2 sources)Start: 12-25-2018 End: 94-17-6634lfjmvysjipqqm (TYLENOL) tablet 650 mgStart: 12-24-2018 End: 88-74-2262hbxa 650 mg by mouth mrgk347 mg, Oral, Once, Sun12/24/18 at 1145, For 1 dose, Pre-Procedure If patient has not had acetaminophen containing products within the past 6 hours.azithromycin 250 mg oral tablet (3 sources)Macrolide AntimicrobialStart: 04-16-2024 End: 50-36-1251Oojglvhivvhf 250 mg tablet Discontinued 0 PO .COMPLEX April 16, 2024 12:00am April 30, 2025 2:00pm For 250 mg dose pack: take 500 mg today (day 1), then 250 mg for 4 days (days 2-5) POStart: 44-49-8229Sckkyjimghst Active 0 PO .COMPLEX April 16, 2024 [...] meq/ml injectable solution (2 sources)Start: 12-23-2018 End: 33-81-5302tfrqcjao Ringers weohmvjk083 ml ciprofloxacin 2 mg/ml injection (1 source)Quinolone AntimicrobialStart: 12-22-2018 End: 14-35-4491rjgr 400 mg intravenous route every twelve hoursciprofloxacin (CIPRO) IVPB 400 mg (premix)diphenhydrAMINE (1 source)Histamine-1 Receptor AntagonistStart: 12-24-2018 End: 84-88-5398azavvalobkLSBSH (BENADRYL) injection 25 mgdocusate sodium 100 mg oral capsule (4 sources)Start: 12-25-2018 End: 33-70-7136eckp 1 capsule by mouth twice dailydocusate sodium (COLACE) 100 MG capsule Take 1 (one) capsule (100 mg total) by mouth 2 (two) times a day Hold if having loose stools for 10 days . 10 capsule 0 12/25/2018 12/25/2018 DiscontinuedNorgestimate-Ethinyl Estradiol (3 sources)Progestin, EstrogenStart: 01-07-2020 End: 82-97-5034iqte 1 tablet by mouth once dailyNorgestimate-Ethinyl Estradiol 0.18/0.215/0.25 mg-35 mcg (28) tablet Discontinued 1 TAB PO Daily January 07, 2020 12:00am April 16, 2024 2:06pmStart: 01-07-2020 End: 54-08-5586pjuq 1 tablet by mouth once dailyNorgestimate-Ethinyl Estradiol Discontinued 1 TAB PO Daily January 07, 2020 12:00am April 1642:06pmtake 1 tablet by mouth once dailynorgestimate-ethinyl estradiol (ORTHO TRI- CYCLEN,TRINESSA) 0.18/0.215/0.25 mg-35 mcg (28) per tablet Take 1 tablet by mouth daily . 0 Activegabapentin 300 mg oral capsule (1 source)Anti-epileptic AgentStart: 12-24-2018 End: 30-63-6720zcpl 300 mg by mouth ckfm420 mg, Oral, Once, Tu12/24/18 at 1145, For 1 dose, Pre-Procedure If patient has not had a dose of gabapentin or pregabalin today.Start: 12-24-2018 End: 94-38-3189hsww 300 mg by mouth vwij526 mg, Oral, Once, Sun12/24/18 at 1145, For 1 dose, Pre-Procedure If patient has not had a dose of gabapentin or pregabalin today.HYDROmorphone (DILAUDID) 0.5 mg/mL injection - ADS Override Pull (1 source)Start: 12-24-2018 End: 51-52-9165ECEFMxhxgedpb (DILAUDID) 0.5 mg/mL injection - ADS Override [...] injection 75 mL (1 source)Start: 12-22-2018 End: 53-95-2623mcgolmlgz (ISOVUE-370) 76 % injection 75 mL1 ml ketorolac tromethamine 30 mg/ml injection (3 sources)Nonsteroidal Anti-inflammatory Drug, Cyclooxygenase InhibitorStart: 12-25-2018 End: 30-70-9099egvg 30 mg intravenous route every eight hours as neededketorolac (TORADOL) injection 30 mgStart: 12-24-2018 End: 38-60-3515jocg 15 mg intravenous route every eight hours as neededketorolac (TORADOL) injection 15 mgStart: 12-22-2018 End: 48-51-3892hqid 15 mg intravenous route every eight hours as neededketorolac (TORADOL) injection 15 mglidocaine viscous 2% 10 mL and maalox plus 30 mL (GI COCKTAIL) 40 mL solution (2 sources)Start: 12-22-2018 End: 58-27-5448bmmk 40 mL by mouth every eight hours as neededlidocaine viscous 2% 10 mL and maalox plus 30 mL (GI COCKTAIL) 40 mL solutionStart: 12-21-2018 End: 75-96-6085qfuapnpyt viscous 2% 10 mL and maalox plus 30 mL (GI COCKTAIL) 40 mL solutionmagnesium hydroxide 80 mg/ml oral suspension (1 source)Start: 12-22-2018 End: 98-80-8861uljviudnv hydroxide (MOM) 400 mg/5 mL suspension 2,400 mg metroNIDAZOLE 250 mg oral tablet (1 source)Nitroimidazole AntimicrobialStart: 12-22-2018 End: 09-27-1664kogcmLMBAWFYS (FLAGYL) tablet 500 mgnaloxone (NARCAN) injection 0.1 mg (1 source)Start: 12-24-2018 End: 06-73-5250bebezhgj (NARCAN) injection 0.1 mgoxyCODONE hydrochloride 5 mg oral tablet (3 sources)Opioid AgonistStart: 12-24-2018 End: 09-02-3315oexo 1 tablet by mouth every six hours [...] tablet (3 sources)Proton Pump InhibitorStart: 12-25-2018 End: 26-98-3271qszsuzwwxzlb (PROTONIX) EC tablet 40 mgStart: 12-22-2018 End: 55-49-337913 mg, Intravenous, Daily, First dose on 12/22/18 at 0900take 1 tablet by mouth once dailypantoprazole (PROTONIX) 20 MG tablet Take 20 mg by mouth daily . 0 Wgkeua14 hr scopolamine 0.0139 mg/hr transdermal system (1 source)AnticholinergicStart: 12-22-2018 End: 47-62-5558kcozfvyoaoj (TRANSDERM-SCOP) 1 mg over 3 days patch 1 nzbws2436 ml sodium chloride 9 mg/ml injection (4 sources)Start: 12-23-2018 End: 71-12-5656iksted chloride 0.9% (NS)Start: 12-22-2018 End: 97-74-3881gdfisw chloride 0.9 % (NS) infusion - ADS Override PullStart: 12-21-2018 End: 88-59-7699713 mL/hr, Intravenous, Continuous, Starting 12/22/18 at 0330, For 16 hours 125 mL/hr for 2 Liters, then convert to saline lock Problems Active Problems Problem ClassificationProblemDateDocumented DateEpisodic/ChronicAbdominal pain (4 sources)Abdominal pain; Translations: [Unspecified abdominal pain]Onset: 81-58-4343FiscymykVwbneyk tract disease (3 sources)Cholelithiasis with obstruction; Translations: [Calculus of gallbladder and bile duct without cholecystitis with obstruction]Onset: 68-45-5532RstadmzmSuyxt and electrolyte disorders (4 sources)Dehydration; Translations: [DEHYDRATION]Onset: 43-65-4433Feecrsnq Hepatitis (2 sources)Acute hepatitis; Translations: [Acute hepatitis]Onset: 12-22-2018 22-89-5059HrvfgchuQnpvlglzyaoff and screening for infectious disease (1 source)Contact with or exposure to other viral diseases; Translations: [Contact with or suspected exposureto severe acute respiratory syndrome coronavirus 2 (SARS-CoV-2)]75-59-6021IaiktvfvGkyqgk and vomiting (3 sources)Nausea and vomiting; Translations: [Nausea with vomiting, unspecified]Onset: 23-91-5792WwwayrxrZgtdtwhtzqsmt gastroenteritis (1 source)Noninfective gastroenteritis and colitis, unspecified; Translations: [NONINFECTIVE GE AND COLITIS UNS]Onset: 72-70-9874MtnlrswbRauij circulatory disease (1 source)Elevated blood pressure; Translations: [Elevated blood pressure reading]EpisodicOther circulatory disease (2 sources)Elevated blood-pressure reading, without diagnosis of hypertension; Translations: [Elevated blood-pressure reading, without diagnosis of hypertension]Onset: 39-95-9662RgiebvbhHidrp liver diseases (1 source)Enzyme level - finding; Translations: [Transaminitis]EpisodicOther liver diseases (2 sources)Nonspecific elevation of levels of transaminase and lactic acid dehydrogenase [LDH]; Translations: [Nonspecific elevation of levels of transaminase and lactic acid dehydrogenase (ldh)]Onset: 50-92-4211EejjftqvNknoa nervous system disorders (1 source)Postoperative pain ; Translations: [Post-operative pain]EpisodicOther nervous system disorders (2 sources)Other acute postprocedural pain; Translations: [Other acute postprocedural pain]Onset: 67-95-8592JzkhqnqeIwscb nutritional; endocrine; and metabolic disorders (1 source)Hyperbilirubinemia; Translations: [Hyperbilirubinemia]ChronicOther nutritional; endocrine; and metabolic disorders (2 sources)Other disorders of bilirubin metabolism; Translations: [Other disorders of bilirubin metabolism]Onset: 00-78-4846JqqjmykJmrfg screening for suspected conditions (not mental disorders or infectious disease) (4 sources)Serum creatinine raised; Translations: [Other specified abnormal findings of blood chemistry]Onset: 13-90-6227TyhocenjYsdmp upper respiratory infections (5 sources)Sore throat symptom; Translations: [Acute pharyngitis, unspecified] EpisodicOtitis media and related conditions (1 source)Acute bilateral otitis media ; Translations: [Otitis media, unspecified, bilateral]54-32-1906BfomzulsIqyuwvkg codes; unclassified (1 source)Acquired absence of other specified parts of digestive tract; Translations: [ACQ ABSENCE OTH PART DIGESTV TRACT]Onset: 68-16-2495MacndefgPqway infection (2 sources)Infectious mononucleosis; Translations: [Infectious mononucleosis, unspecified without complication]52-81-4884GxjliyakUrpsmdb on above:Problem List clean-up per request of Phys. EHR Cmte Past or Other Problems Problem ClassificationProblemDateDocumented DateEpisodic/ChronicOther connective tissue disease (1 source)Pain in right arm; Translations: [PAIN IN RIGHT ARM]Onset: 03-06-2019 EpisodicPhlebitis; thrombophlebitis and thromboembolism (1 source)Phlebitis and thrombophlebitis of other sites; Translations: [PHLEBITIS THROMBOPHLEBITIS OTH SITE]Onset: 95-43-8624EoixwonoWvocnxvc codes; unclassified (4 sources)Localized edema; Translations: [LOCALIZED EDEMA]Onset: 02-20-2019 Episodic Results Test NameValueInterpretationReference RangeFacilityNo Panel InformationOrdered By: Cris Castanon on 19-02-8336Dryxa Strep (POC)[facility]No Panel InformationOrdered By: Gloria De La Garza on 59-75-9985Uwwbc Strep (POC) [facility] HospitalQuick Strepon 12-11-2022S. pyogenes Org specific cx Ql (Throat)NegativeNoSI2 - [employer] Other Quick StrepNoSI2 - [employer] Other HEPATITIS PANEL, ACUTEon 15-46-1348FHrIw Screen NegativeNormalNegativeMedina HospitalComment on above:Performed By: #### CBC #### [facility] [address] [place] [address] Bakari Conway A Ab, IgMNegativeNormalNegativeMedina HospitalComment on above:Performed By: #### CBC #### [facility] [address] [address] Bakari Conway B Core Ab, IgMNegativeNormalNegativeThe [facility] EastComment on above:Performed By: #### CBC #### [facility] [address] [address] Bakari HesterenHep C Virus Ab<0.7Cdqzyg6.0-0.9The [facility] EastComment on above:Result Comment: Negative: < 0.8 Indeterminate: 0.8 - 0.9 Positive: > 0.9 . The [facility] recommends that a positive HCV antibody result be followed up with a HCV Nucleic Acid Amplification test (360577).Performed By: #### CBC #### [facility] [address] [address] Bakari KarenAMYLASEon 43-10-9465Aynuxxd [Catalytic activity/Vol]35 U/LNormal 31-110The [facility] EastComment on above:Performed By: #### RAUL, KELSEA, CMP ####[facility] Fihopkey[address] [place], [place] [address]Gerken KarenCBC AUTO DIFFon 81-81-2160Brbvnqglp (Bld) [#/Vol]0.2 103/ulCritically high 0.0-0.1The [facility] EastComment on above:Performed By: #### CBC ####[facility] [address]wr[address]is[address] [place], [place] [address]Gerken Shannan Basophils/100 WBC (Bld)1.3 %Normal0.2-2.0The [facility] EastComment on above: Performed By: #### CBC ####[facility] [address] [place], [place] [address]Gerken KarenEosinophils (Bld) [#/Vol]0.0 103/ulNormal 0.0-0.7The [facility] EastComment on above:Performed By: #### CBC ####[facility] [address]oro[address] [place], [place] [address]Gerken Shannan Eosinophils/100 WBC (Bld)0.3 %Critically low0.9-7.0The [facility] EastComment on above:Performed By: #### CBC ####[facility] Plhncmsdqp[address] KarenErythrocyte distribution width (RBC) [Ratio]12.8 %Ayudpa71.0-15.0The [facility] EastComment on above:Performed By: #### CBC ####[facility] Uuylwcmkxa9885 [address] KarenHematocrit (Bld) [Volume fraction]39.2 %Hxoitx01.0-48.0The [facility] EastComment on above:Performed By: #### CBC ####[facility] Hpkntxfstk3544 [address] KarenHemoglobin (Bld) [Mass/Vol]13.0 g/qOZutwkx04.0-16.0The [facility] EastComment on above: Performed By: #### CBC ####[facility] N[address] [place] [address] KarenIG #0.18 10e3/ulCritically high0.00-0.03 The [facility] EastComment on above:Performed By: #### CBC ####[facility] [address] [place] [address] KarenIG %1.5 %Critically high0.0-0.5The [facility] EastComment on above:Performed By: #### CBC ####[facility] [address] [place] [address] KarenLymphocytes (Bld) [#/Vol]9.1 103/ulCritically high1.2-3.8The [facility]Commemorial healthcare on above:Performed By: #### CBC ####[facility] [address]zpkb[address] [place] [address] KarenLymphocytes/100 WBC (Bld)76.0 %Critically high20.5-60.0The [facility] EastCommemorial healthcare on above: Performed By: #### CBC ####[facility] [address] [place] [address] KarenMANUAL DIFF REQNONormalThe [facility] EastComment on above:Performed By: #### CBC ####[facility] [address] [id number] KarenE.J. [facility] (RBC) [Entitic mass]27.9 shOxrgsg80.7-34.0The [facility] EastComment on above: Performed By: #### CBC ####[facility] Oilrnwmnye[address] [place], [place] [address]Gerken KarenMC (RBC) [Mass/Vol]33.2 g/dLNormal 29.9-35.2The [facility] EastComment on above:Performed By: #### CBC ####[facility] [address] [place] [address] KarenMCV (RBC) [Entitic vol]84.1 cSXuohex25.0-99.0The [facility] EastComment on above:Performed By: #### CBC ####[facility] [address] [place] [address] KarenMonocytes (Bld) [#/Vol]0.6 103/ulNormal 0.3-0.8The [facility] EastComment on above:Performed By: #### CBC ####[facility] [address] [place] [address] Shannan Monocytes/100 WBC (Bld)4.9 %Normal1.7-12.0The [facility] EastComment on above: Performed By: #### CBC ####[facility] N[address] [place] [address] KarenNeutrophils (Bld) [#/Vol]1.9 103/ulNormal 1.4-6.5The [facility] EastComment on above:Performed By: #### CBC ####[facility] [address] [place] [address] Shannan Neutrophils/100 WBC (Bld)16.0 %Critically low43.0-75.0The [facility] Comment on above:Performed By: #### CBC ####[facility] [address] [place] [address] KarenPlatelet mean volume (Bld) [Entitic vol]11.5 fLNormal9.5-13.5The [facility] EastComment on above: Performed By: #### CBC ####[facility] Ttvqumtlxn0085 [address] KarenPlatelets (Bld) [#/Vol]138 103/ul Critically jva595-946Kjk [facility] EastComment on above:Result Comment: count okPerformed By: #### CBC ####[facility] I[address]uyahw[address] KarenRBC (Bld) [#/Vol]4.66 106/ulNormal 4.20-5.40The [facility] HospitalComment on above:Performed By: #### CBC ####[facility] [address]rztscj[address] [place] [address] KarenWBC (Bld) [#/Vol]12.0 103/ulCritically high4.0-11.0The [facility] Comment on above:Performed By: #### CBC ####[facility] X[address] [place] [address] KarenCULTURE URINEon 01-09-2020 CULTURE URINECulture Observations: No growth.NormalThe [facility] EastComment on above:Performed By: #### CBC #### [facility] [address] KarenDIFFERENTIAL MANUALon 29-37-4549DYGWGEFC LYMPH #2.86 103/ulNormalThe [facility] EastComment on above:Performed By: #### DIFF ####[facility] [address] [place] [address] KarenATYPICAL LYMPH % 24 %NormalThe [facility] EastComment on above:Performed By: #### DIFF ####[facility] [address] [place] [address] KarenBAND #0.2 103/ulNormal0.0-0.3The [facility] EastComment on above: Performed By: #### DIFF ####[facility] [address]fr[address] [place] [address] KarenBAND %2 %Normal0-5The [facility] Comment on above:Performed By: #### DIFF ####[facility] [address] [place] [address] KarenBASOM #0.00 103/ulNormal 0.00-0.10The [facility] HospitalComment on above:Performed By: #### DIFF ####[facility] [address]re[address] [place] [address] KarenBASOM %0.0 %Critically low0.2-2.0The [facility] HospitalComment on above: Performed By: #### DIFF ####[facility] [address]beabquh[address] [place] [address] KarenBLAST #NormalThe [facility] HospitalComment on above:Performed By: #### DIFF ####[facility] Y[address]seidbxsv[address] [place] [address] KarenBLAST %NormalThe [facility] HospitalComment on above:Performed By: #### DIFF ####[facility] [address] [place] [address] KarenCORRECTED WBCNormal4.0-11.0The [facility] EastComment on above:Performed By: #### DIFF ####[facility] [address] [place] [address] KarenEosinophils (Bld) [#/Vol]0.12 103/ulNormal0.00-0.70The [facility] EastComment on above: Performed By: #### DIFF ####[facility] Ascslmyaql[address] [place] [address] KarenEosinophils/100 WBC (Bld)1.0 %Normal 0.9-7.0The [facility] EastComment on above:Performed By: #### DIFF ####[facility] [address] [place] [address] KarenLYMPHM #5.24 103/ulCritically high1.20-3.80The [facility] EastComment on above:Performed By: #### DIFF ####[facility] Qnhckrtbpl7354 [address] KarenLYMPHM%44.0 %Njqgkr77.5-60.0The [facility] HospitalComment on above:Performed By: #### DIFF ####[facility] [address] [place] [address] KarenMETAMYELOCYTE # NormalThe [facility] HospitalComment on above:Performed By: #### DIFF ####[facility] [address] [place] [address] Shannan METAMYELOCYTE %NormalThe [facility] HospitalComment on above:Performed By: #### DIFF ####[facility] [address] [place] [address] KarenMONOM#0.71 103/ulNormal0.30-0.80The [facility] HospitalComment on above:Performed By: #### DIFF ####[facility] [address] [place] [address] KarenMONOM%6.0 %Normal1.7-12.0The [facility] HospitalComment on above:Performed By: #### DIFF ####[facility] [address] [place] [address] KarenMYELOCYTE #Normal The [facility] EastComment on above:Performed By: #### DIFF ####[facility] [address] [place] [address] Shannan MYELOCYTE %NormalThe [facility] HospitalComment on above:Performed By: #### DIFF ####[facility] [address]mpfaqj[address] [place] [address] KarenNRBCNormalThe [facility] HospitalComment on above:Performed By: #### DIFF ####[facility] [address] [place] [address] KarenSEG #2.74 103/ulNormal1.40-6.50The [facility] HospitalComment on above: Performed By: #### DIFF ####[facility] Onwfkephun[address] [place] [address] KarenSegmented neutrophils/100 WBC (Bld)23.0 % Critically low43.0-75.0The [facility] EastComment on above:Performed By: #### DIFF ####[facility] Xome[address]opcu[address] [place] [address] KarenWBC (Bld) [#/Vol]11.9 103/ulCritically high4.0-11.0The [facility] EastComment on above:Performed By: #### DIFF ####[facility] [address] [place] [address] KarenLIPASEon 14-06-9900Gybiot [Catalytic activity/Vol]107.0 U/GNqzhfu44.0-300.0The [facility]Commemorial healthcare on above:Performed By: #### RAUL, LIPA, CMP ####[facility] N[address]ankdlyg[address] [place] [address] KarenPROF 14(COMP METB)on 51-58-7745Kqsosnc [Mass/Vol]3.4 g/dLCritically low3.5-5.0The [facility] EastComment on above:Performed By: #### RAUL, LIPA, CMP ####[facility] [address]xm[address] [place] [address] KarenAlbumin/Globulin [Mass ratio]1.7 {ratio}NormalThe [facility] EastCommemorial healthcare on above:Performed By: #### RAUL, LIPA, CMP ####[facility] [address] [place] [address] KarenALP [Catalytic activity/Vol]376 U/L Critically rrwh06-301Uah [facility] on above:Performed By: #### RAUL, LIPA, CMP ####[facility] [address] [place] [address] KarenALT [Catalytic activity/Vol]199 U/LCritically high9-52The [facility] Centerment on above:Performed By: #### RAUL, LIPA, CMP ####[facility] [address] [place] [address] KarenAnion gap [Moles/Vol]14.2 mmol/LNormalThe [facility] Centerment on above:Performed By: #### RAUL, LIPA, CMP ####[facility] Pnpxpnqaqv[address] KarenAST [Catalytic activity/Vol]122 U/L Critically kpbe73-19Utk [facility] Centerment on above:Performed By: #### RAUL, LIPA, CMP ####[facility] Ggmpsbzszj5[address] KarenBilirubin Ql (U)5.3 mg/dLCritically high0.2-1.3The [facility] EastComment on above:Performed By: #### RAUL, LIPA, CMP ####[facility] Ngcf[address] [place] [address] KarenCalcium [Mass/Vol]8.8 mg/dLNormal8.4-10.2The [facility] on above:Performed By: #### RAUL, LIPA, CMP ####[facility] [address] [place] [address] KarenChloride [Moles/Vol]101 mmol/OKvzytb01-496 The [facility] EastComment on above:Performed By: #### RAUL, LIPA, CMP ####[facility] J[address] [place] [address] KarenCO2 [Moles/Vol]26.1 mmol/LOmnwzq44.0-30.0The [facility] [place] [facility] on above:Performed By: #### RAUL, LIPA, CMP ####[facility] [address] [place] [address] KarenCreatinine [Mass/Vol]0.94 mg/dL Normal0.52-1.04The [facility] [place] [facility]ment on above:Performed By: #### RAUL, LIPA, CMP ####[facility] Kcayijpmyr94[address] KarenEGFR-AF SAO TOMEAN>60Normal>=60The [facility] EastComment on above:Performed By: #### RAUL, LIPA, CMP ####[facility] [address] [place], [place] [address]Eolvvb KarenEGFR-NON AF SAO TOMEAN>60Normal >=60The [facility] [place] [facility] Centerment on above:Performed By: #### AVELINO CARTERA, CMP ####[facility] [address] [place], [place] [address]Dvwktm KarenGlobulin (S) [Mass/Vol]3.3 g/dLNormalThe [facility] EastComment on above: Performed By: #### RAUL LIPA, CMP ####[facility] [address] [place] [id number] KarenGlucose [Mass/Vol]101 mg/aWFacbno47-769 [facility] on above:Performed By: #### KELSEA CARTER, CMP ####[facility] [address] [place] [address]Ger[place] KarenPotassium [Moles/Vol]3.3 mmol/LCritically low3.4-5.0[facility] Comment on above:Performed By: #### RAUL LIPA, CMP ####[facility] [address] [place], [place] [address]Gerken KarenProtein [Mass/Vol]6.7 g/dLNormal6.1-8.2The [facility] on above:Performed By: #### RAUL LIPA, CMP ####[facility] [address] [place] [id number] KarenSodium [Moles/Vol]138 mmol/DHgyatk358-128 [facility] on above:Performed By: #### RAUL LIPA, CMP ####[facility] [address] [place] [id number] KarenUrea nitrogen [Mass/Vol]16.0 mg/dLNormal6.4-19.3The [facility] Comment on above:Performed By: #### RAUL LIPA, CMP ####[facility] [address] [place] [phone] KarenUrea nitrogen/Creatinine [Mass ratio]17.0 mg/mgNoSt. Vincent HospitalComment on above:Performed By: #### RAUL, LIPA, CMP ####[facility] Sc[address] [place] [address] KarenPROTIMEon [id number] Coag (PPP) [Relative time]1.04 {INR}NormalThe [facility] EastComment on above: Performed By: #### PT, PTT ####[facility] [address] [place] [address] KarenPT Coag (PPP) [Time]PLEASE NOTE: NORMAL RANGE CHANGE 06-04-2014 DUE TO REAGENT LOT [facility]ANGEJ.[facility]. [facility] Comment on above:Performed By: #### PT, PTT ####[facility] [address] [place] [address] KarenPT Coag (PPP) [Time]SEE BELOW NormalThe [facility] EastComment on above:Result Comment: DESIRED INR: 2.0 - 3.0 CONDITIONS NOT LISTED BELOW 2.5 - 3.5 FOR PROSTHETIC HEART VALVE REPLACEMENT 2.5 - 3.5 RECURRENT THROMBOSISPerformed By: #### PT, PTT ####[facility] [address] [place] [address] KarenPT Coag (PPP) [Time]10.8 sNormal9.0-11.6The [facility] EastComment on above:Performed By: #### PT, PTT ####[facility] W[address] [place] [address] KarenPTTon 04-36-1799cZCF Coag (Bld) [Time]27.2 dZghxeh71.3-36.2The [facility] EastComment on above:Performed By: #### PT, PTT ####[facility] [address]zgbledglx[address] [place] [address] KarenaPTT Coag (Bld) [Time]PLEASE NOTE: NORMAL RANGE CHANGE 08-11-2015 DUE TO REAGENT LOT CHANGEJ.W. Ruby Memorial HospitalComment on above:Performed By: #### PT, PTT ####[facility] [address] [place] [address]Gerken KarenUA RANDOM W/MICROSCOPICon 24-60-0978CLMUSNWGG CRYSTALSFEWJ.W. Ruby Memorial HospitalComment on above:Performed By: #### CBC #### [facility] Laboratory [address] [place] [address] Bakari KarenBacteria LM.HPF (Urine sed) [#/Area]TRACENormalNONE SEENMedina HospitalComment on above:Performed By: #### CBC #### [facility] Laboratory [address] [place] [address] Bakari KarenBilirubin [Mass/Vol]LARGENormalNEGATIVEMedina HospitalComment on above:Performed By: #### CBC #### [facility] Laboratory [address] [place] [address] Bakari KarenBLOODLARGENormalNEGATIVEMedina HospitalComment on above: Performed By: #### CBC #### [facility] Laboratory [address] [place] [address] Bakari KarenCASTNONE SEENPortlandNONE Riverview Health InstituteComment on above: Performed By: #### CBC #### [facility] [address] [place] [address] Bakari KarenClarity (U)SL CLOUDYNormalMedina HospitalComment on above: Performed By: #### CBC #### [facility] Laboratory [address] [place] [address] Bakari KarenColor (U)DK. ORANGENormalYSuburban Community Hospital & Brentwood HospitalComment on above:Performed By: #### CBC #### [facility] Laboratory [address] [place] [address] Bakari KarenCrystals LM Nom (Urine sed)SEENNormalNONE [facility] on above:Performed By: #### CBC #### [facility] Laboratory [address] [place] [address] Bakari KarenEpithelial cells LM.HPF (Urine sed) [#/Area]MODERATENormBellevue HospitalComment on above:Performed By: #### CBC #### [facility] Laboratory [address] [place] [address] Bakari KarenGlucose [Mass/Vol]NegativeNormalNEGATIVEFulton County Health Center HospitalComment on above:Performed By: #### CBC #### [facility] Laboratory [address] [place] [address] Bakari KarenKetones Ql (U)NegativeNormalNEGATIVEFulton County Health Center HospitalComment on above:Performed By: #### CBC #### [facility] Laboratory [address] [place] [address] Bakari KarenMUCOUSTRACENormalNONE SEENMedina HospitalComment on above: Performed By: #### CBC #### [facility] [address] [place] [address] Bakari KarenNitrite Ql (U)NegativeNormalNEGATIVEFulton County Health Center HospitalComment on above:Performed By: #### CBC #### [facility] [address] [place] [address] Bakari KarenpH (Bld)5.1Lsbyhu1-8ZbxMedina HospitalComment on above:Performed By: #### CBC #### [facility] [address] [place] [address] Bakari KarenProtein [Mass/Vol]TRACENormBellevue HospitalComment on above: Performed By: #### CBC #### [facility] [address] [place] [address] Bakari KarenRBC (Bld) [#/Vol]0-88Mzncba1-2FokMedina HospitalComment on above: Performed By: #### CBC #### [facility] [address] [place] [address] Bakari KarenSPEC GRAVITY>=1.523Weyqdr8.005-<=1.025Medina HospitalComment on above:Performed By: #### CBC #### [facility] [address] [place] [address] Bakari KarenUrobilinogen Qn (U)1.0 EU/dlNormCleveland Clinic [facility] Hospital HospitalComment on above:Performed By: #### CBC #### [facility] [address] [place], [place] [address] Bakari CampbellWBC (Bld) [#/Vol]5-10NormalNONE SEENMedina HospitalComment on above:Performed By: #### CBC #### [facility] [address] [place], [place] [address] Bakari CampbellWBC (Bld) [#/Vol]NegativeNormalNEGATIVEThe [facility] EastComment on above:Performed By: #### CBC #### [facility] [address] [place], [place] [address] Bakari CampbellUS SINGLE QUAD RT UPPERon [id number] SINGLE QUAD RT UPPER Ultrasound abdomen right [...] Electronically authenticated by: MELISSA TILLEY Date: 2020-01-09 08:29NoSt. Vincent HospitalXR ABD FLAT UP_PA Leticia [id number] ABD FLAT UP_PA CHXR ABD FLAT UP_PA [...] authenticated by: CECILIA MORFIN Date: 2020-01-08 23:03NormalThe [facility] EastAMMONIAon 41-02-9637Wjtoprd (P) [Mass/Vol]ug/dLCritically low 10-30The [facility] EastComment on above:Performed By: #### AMM ####[facility] [address] [place], [place] [address]Fdvwiq KarenAMYLASE on 01-69-0769Grmcnff [Catalytic activity/Vol]41 U/BDjovsc12-776Ueh [facility] EastComment on above:Performed By: #### KELSEA CARTER, CMP #### [facility] [address] [place], [place] [address] Bakari KarenCBC AUTO DIFFon 41-27-2771Xcqyttaqr (Bld) [#/Vol]0.0 103/ulNormal 0.0-0.1The [facility] EastComment on above:Performed By: #### CBC #### [facility] [address] [place], [place] [address] Bakari KarenBasophils/100 WBC (Bld)0.3 %Normal0.2-2.0The [facility] Comment on above:Performed By: #### CBC #### [facility] [address] [place], [place] [address] Bakari KarenEosinophils (Bld) [#/Vol]0.0 103/ulNormal0.0-0.7The [facility] EastComment on above:Performed By: #### CBC #### [facility] [address] [place], [place] [address] Bakari KarenEosinophils/100 WBC (Bld)0.3 %Critically low0.9-7.0The [facility] EastComment on above:Performed By: #### CBC #### [facility] [address] [place], [place] [address] Bakari KarenErythrocyte distribution width (RBC) [Ratio]13.0 %Ooiyfk94.0-15.0The [facility] EastComment on above:Performed By: #### CBC #### [facility] Laboratory [address] [place] [address] Bakari KarenHematocrit (Bld) [Volume fraction]44.5 %Hzpzly86.0-48.0The [facility] EastComment on above:Performed By: #### CBC #### [facility] [address] [place] [address] Bakari KarenHemoglobin (Bld) [Mass/Vol]14.5 g/hIRotfda62.0-16.0The [facility] EastComment on above:Performed By: #### CBC #### [facility] [address] [place] [address] Bakari KarenIG #0.28 10e3/ulCritically high0.00-0.03The [facility] EastComment on above:Performed By: #### CBC #### [facility] [address] [place] [address] Bakari KarenIG %1.8 %Critically high0.0-0.5The [facility] EastComment on above:Performed By: #### CBC #### [facility] [address] [place] [address] Bakari KarenLymphocytes (Bld) [#/Vol]11.9 103/ulCritically high1.2-3.8The [facility] EastComment on above:Performed By: #### CBC #### [facility] [address] [place] [address] Bakari KarenLymphocytes/100 WBC (Bld)75.1 %Critically high20.5-60.0The [facility] EastComment on above:Performed By: #### CBC #### [facility] [address] [place] [address] Bakari KarenMANUAL DIFF REQNONormalThe [facility] EastComment on above: Performed By: #### CBC #### [facility] [address] [place] [address] Bakari KarenMCH (RBC) [Entitic mass]27.5 zmYyewgy70.7-34.0The [facility] Comment on above:Performed By: #### CBC #### [facility] [address] [place] [address] Bakari KarenMCHC (RBC) [Mass/Vol]32.6 g/eDBgfoes99.9-35.2The [facility] Comment on above:Performed By: #### CBC #### [facility] [address] [place] [address] Bakari KarenMCV (RBC) [Entitic vol]84.4 jOXafmbl83.0-99.0The [facility] Comment on above:Performed By: #### CBC #### [facility] [address] [place] [address] Bakari KarenMonocytes (Bld) [#/Vol]1.1 103/ulCritically high0.3-0.8The [facility] EastComment on above:Performed By: #### CBC #### [facility] [address] [place] [address] Bakari KarenMonocytes/100 WBC (Bld)6.6 %Normal1.7-12.0The [facility] Comment on above:Performed By: #### CBC #### [facility] [address] [place] [address] Bakari KarenNeutrophils (Bld) [#/Vol]2.5 103/ulNormal1.4-6.5The [facility] EastComment on above:Performed By: #### CBC #### [facility] [address] [place] [address] Bakari KarenNeutrophils/100 WBC (Bld)15.9 %Critically low43.0-75.0The [facility] EastComment on above:Performed By: #### CBC #### [facility] [address] [place] [address] Bakari KarenPlatelet mean volume (Bld) [Entitic vol]11.6 fLNormal9.5-13.5The [facility] EastComment on above:Performed By: #### CBC #### [facility] [address] [place] [address] Bakari KarenPlatelets (Bld) [#/Vol]163 103/jmAdoitv412-299Lfg [facility] Comment on above:Performed By: #### CBC #### [facility] [address] [place] [address] Bakari KarenRBC (Bld) [#/Vol]5.27 106/ulNormal4.20-5.40The [facility] Comment on above:Performed By: #### CBC #### [facility] [address] [place] [address] Bakari KarenWBC (Bld) [#/Vol]15.9 103/ulCritically high4.0-11.0The [facility] EastComment on above:Performed By: #### CBC #### [facility] [address] [place] [address] Bakari KarenDIFFERENTIAL MANUALon 15-14-2233NIDDYYIO LYMPH #1.90 103/ulNormalThe [facility]inton HospitalComment on above:Performed By: #### DIFF, PERSMR #### [facility] [address] [place] [address] Bakari KarenATYPICAL LYMPH %12 %NormalMedina HospitalComment on above: Performed By: #### DIFF, PERSMR #### [facility] [address] [place] [address] Bakari KarenBAND #0.3 103/ulNormal0.0-0.3The [facility] EastComment on above: Performed By: #### DIFF, PERSMR #### [facility] [address] [place] [address] Bakari KarenBAND %2 %Normal0-5The [facility] EastComment on above:Performed By: #### DIFF, PERSMR #### [facility] [address] [place] [address] Bakari KarenBASOM #0.00 103/ulNormal0.00-0.10The [facility] EastComment on above:Performed By: #### DIFF, PERSMR #### [facility] [address] [place] [address] Bakari KarenBASOM %0.0 %Critically low0.2-2.0The [facility] EastComment on above:Performed By: #### DIFF, PERSMR #### [facility] [address] [place] [address] Bakari KarenBLAST #NormalThe [facility]inton HospitalComment on above:Performed By: #### DIFF, PERSMR #### [facility] [address] [place] [address] Bakari KarenBLAST %NormalThe [facility] EastComment on above:Performed By: #### DIFF, PERSMR #### [facility] [address] [place] [address] Bakari KarenCORRECTED WBCNormal4.0-11.0The [facility] EastComment on above: Performed By: #### DIFF, PERSMR #### [facility] [address] [place] [address] Bakari KarenEosinophils (Bld) [#/Vol]0.00 103/ulNormal0.00-0.70The [facility] EastComment on above:Performed By: #### DIFF, PERSMR #### [facility] [address] [place] [address] Bakari KarenEosinophils/100 WBC (Bld)0.0 %Critically low0.9-7.0The [facility] EastComment on above:Performed By: #### DIFF, PERSMR #### [facility] [address] [place] [address] Bakari KarenLYMPHM #9.01 103/ulCritically high1.20-3.80The [facility] Comment on above:Performed By: #### DIFF, PERSMR #### [facility] [address] [place] [address] Bakari KarenLYMPHM%57.0 %Izjtco37.5-60.0The [facility] EastComment on above: Performed By: #### DIFF, PERSMR #### [facility] [address] [place] [address] Bakari KarenMETAMYELOCYTE #NormalThe [facility] HospitalComment on above:Performed By: #### DIFF, PERSMR #### [facility] [address] [place] [address] Bakari KarenMETAMYELOCYTE %NormalThe [facility] HospitalComment on above:Performed By: #### DIFF, PERSMR #### [facility] [address] [place] [address] Bakari KarenMONOM#1.26 103/ulCritically high0.30-0.80The [facility] Comment on above:Performed By: #### DIFF, PERSMR #### [facility] [address] [place] [address] Baakri KarenMONOM%8.0 %Normal1.7-12.0The [facility] EastComment on above: Performed By: #### DIFF, PERSMR #### [facility] [address] [place] [address] Bakari KarenMYELOCYTE #NormalThe [facility] EastComment on above:Performed By: #### DIFF, PERSMR #### [facility] [address] [place] [address] Bakari KarenMYELOCYTE %NormalThe [facility] EastComment on above:Performed By: #### DIFF, PERSMR #### [facility] [address] [place] [address] Bakari KarenNRBCNormalThe [facility] EastComment on above:Performed By: #### DIFF, PERSMR #### [facility] [address] [place] [address] Bakari KarenSEG #3.32 103/ulNormal1.40-6.50The [facility] EastComment on above:Performed By: #### DIFF, PERSMR #### [facility] [address] [place] [address] Bakari KarenSegmented neutrophils/100 WBC (Bld)21.0 %Critically low43.0-75.0The [facility] EastComment on above:Performed By: #### DIFF, PERSMR #### [facility] [address] [place] [address] Bakari KarenWBC (Bld) [#/Vol]15.8 103/ulCritically high4.0-11.0The [facility] on above:Performed By: #### DIFF, PERSMR #### [facility] [address] [place] [address] Bakari HesterenH PYLORI ANTIBODYon 01-08-2020H PYLORINegativeNormalNEGATIVEThe [facility] EastCommemorial healthcare on above:Performed By: #### HPYL #### [facility] [address] [place] [address] Bakari KarenLACTATE/LACTIC ACIDon 95-06-6153Bpguorl [Moles/Vol]1.7 mmol/LNormal 0.7-2.0The [facility] on above:Performed By: #### LACT #### [facility] [address] [place] [address] Bakari KarenLIPASEon 63-52-2861Gbvcli [Catalytic activity/Vol]102.0 U/LNormal 23.0-300.0The [facility] on above:Performed By: #### RAUL, LIPA, CMP #### [facility] [address] [place] [address] Bakari Eren, CVD-19 ([facility])on 64-85-1647SZV FROM REF LAB01/10/20[facility] HospitalCom[facility] healthcare on above:Performed By: #### CBC #### [facility] [address] [place] [address] Bakari HesterZenyT TO REF LAB01/09/20[facility] HospitalCom[facility] healthcare on above: Performed By: #### CBC #### [facility] [address] [place] [address] Bakari KarenPERIPHERAL SMEARon 38-97-8976Nbexjonvojh Cyto stain Nom (Cvx/Vag) [ID]DR. WALKER ALEGREJ.W. [facility] HospitalCommemorial healthcare on above:Result Comment: LEUKOCYTOSIS WITH REACTIVE LYMPHOCYTOSIS. RULE OUT RAYMUNDO ORELLANA VIRUS OR OTHER VIRAL PROCESSPerformed By: #### DIFF, PERSMR #### [facility] [address] [place] [address] Bakari KarenPROF 14(COMP METB)on 52-81-5745Bpgnzcu [Mass/Vol]3.9 g/dLNormal 3.5-5.0The [facility] EastComment on above:Performed By: #### RAUL, LIPA, CMP #### [facility] [address] [place] [address] Bakari KarenAlbumin/Globulin [Mass ratio]1.0 {ratio}NormalThe [facility] Comment on above:Performed By: #### RAUL, LIPA, CMP #### [facility] [address] [place] [address] Bakari KarenALP [Catalytic activity/Vol]443 U/LCritically pwit97-995Gdu [facility] EastComment on above:Performed By: #### RAUL, LIPA, CMP #### [facility] [address] [place] [address] Bakari KarenALT [Catalytic activity/Vol]241 U/LCritically high9-52The [facility] EastComment on above:Performed By: #### RAUL, LIPA, CMP #### [facility] [address] [place] [address] Bakari KarenAnion gap [Moles/Vol]14.2 mmol/LNormalThe [facility] EastComment on above:Performed By: #### RAUL, LIPA, CMP #### [facility] [address] [place] [address] Bakari KarenAST [Catalytic activity/Vol]155 U/LCritically nlna36-47Cpo [facility] EastComment on above:Performed By: #### RAUL, LIPA, CMP #### [facility] [address] [place] [address] Bakari KarenBilirubin Ql (U)6.4 mg/dLCritically high0.2-1.3The [facility] Comment on above:Performed By: #### RAUL, LIPA, CMP #### [facility] [address] [place] [address] Bakari KarenCalcium [Mass/Vol]9.6 mg/dLNormal8.4-10.2The [facility] Comment on above:Performed By: #### RAUL, LIPA, CMP #### [facility] [address] [place] [address] Bakari KarenChloride [Moles/Vol]98 mmol/ZDehlqv12-512HmqMedina Hospital Comment on above:Performed By: #### RAUL, LIPA, CMP #### [facility] [address] [place] [address] Bakari KarenCO2 [Moles/Vol]27.1 mmol/BIvrlkl20.0-30.0[facility] Comment on above:Performed By: #### RAUL, LIPA, CMP #### [facility] [address] [place] [address] Bakari KarenCreatinine [Mass/Vol]1.10 mg/dLCritically high0.52-1.04[facility] HospitalComment on above:Performed By: #### RAUL, LIPA, CMP #### [facility] [address] [place] [address] Bakari KarenEGFR-AF SAO TOMEAN>60Normal>=60The [facility] EastComment on above: Performed By: #### RAUL, LIPA, CMP #### [facility] [address] [place] [address] Bakari KarenEGFR-NON AF SAO TOMEAN>60Normal>=60Med[facility] HospitalComment on above:Performed By: #### RAUL, LIPA, CMP #### [facility] [address] [place] [address] Bakari KarenGlobulin (S) [Mass/Vol]3.9 g/dLNormalThe [facility] EastComment on above:Performed By: #### RAUL, LIPA, CMP #### [facility] [address] [place] [address] Bakari KarenGlucose [Mass/Vol]93 mg/kUJncbnn70-850HblMedina HospitalComment on above:Performed By: #### RAUL, LIPA, CMP #### [facility] [address] [place] [address] Bakari KarenPotassium [Moles/Vol]3.3 mmol/LCritically low3.4-5.0The [facility] EastComment on above:Performed By: #### KELSEA CARTER, CMP #### [facility] Laboratory [address] [address] Bakari KarenProtein [Mass/Vol]7.8 g/dLNormal6.1-8.2The [facility] EastComment on above:Performed By: #### KELSEA CARTER, CMP #### [facility] [address] [address] Bakari KarenSodium [Moles/Vol]136 mmol/LCritically nvs915-604Hqb [facility] EastComment on above:Performed By: #### KELSEA CARTER, CMP #### [facility] Laboratory [address] [place] [address] Bakari KarenUrea nitrogen [Mass/Vol]16.0 mg/dLNormal6.4-19.3The [facility] EastComment on above:Performed By: #### KELSEA CARTER, CMP #### [facility] Laboratory [address] [place] [address] Bakari KarenUrea nitrogen/Creatinine [Mass ratio]14.5 mg/mgNormalThe [facility] EastComment on above:Performed By: #### KELSEA CARTER, CMP #### [facility] Laboratory [address] [place] [address] Bakari KarenUS EXT NON VASC LIMITED RTon 41-49-1305NS EXT NON VASC LIMITED RT Patient: BOGDAN KEEN Exam Date: 02/20/2019 : 2000 Gender:F Ordering : DR ALEXANDREA FOY . Admission #: [id number] Family : BROOKE DELA CRUZ MESSAGE AND DELIVERY SERVICE PRICER Order #: [id number] CLICK HERE TO VIEW EXAM RADIOLOGY REPORT [...] by: Grey Rizzo M.D. on 02/20/2019 at 14:42[facility] HospitalUS VENOUS DOPPLER R Leanna [id number] VENOUS DOPPLER R ARMPatient: BOGDAN KEEN Exam Date: 02/20/2019 : 2000 Gender:F Ordering : DR ALEXANDREA FOY . Admission #: [id number] Family : BROOKE DELA CRUZ MESSAGE AND DELIVERY SERVICE PRICER Order #: [id number] CLICK HERE TO VIEW EXAM RADIOLOGY REPORT [...] by: Grey Rizzo M.D. on 02/20/2019 at 14:46J.[facility]. [facility] HospitalBilirubin, Directon 13-52-8273Vtgxsvurg.conjugated mass conc0.7 mg/dL High0 - 0.4 mg/dLOhioHealthInterpretation and review of laboratory results AbnormalOhioHealthCBCon 90-29-8649Rtkxwwuwtij distribution width Entitic volume (RBC)13.0 %11.6 - 14.8 %OhioHealthHematocrit Volume Fraction (Bld)34.0 %Low36 - 46 %[facility] HospitalHemoglobin mass conc (Bld)10.7 g/dLLow12 - 16 g/dLOhio Valley Surgical Hospital Interpretation and review of laboratory resultsAbnormalOMary Rutan HospitalH Entitic mass (RBC)27.9 pg25 - 35 pgOhioKettering Health Greene MemorialHC mass conc (RBC)31.5 g/dL31 - 37 g/dL [facility] Entitic volume (RBC)88.8 fL78 - 102 fLOhioHealthNucleated RBC #/vol (Bld)0.00 10*3/uLOhioHealthNucleated RBC/100 WBC Ratio (Bld)0.0 % [facility] HospitalPlatelet mean volume Entitic volume (Bld)11.2 fL9 - 15.5 fLOhioHealth Platelets #/vol (Bld)180 10*3/uLOhioHealthRBC #/vol (Bld)3.83 10*6/uLLow OhioHealthWBC #/vol (Bld)8.72 10*3/uLOhioHealthComprehensive Metabolic Panelon 97-52-7427Tufibxg mass conc3.4 g/dL3.2 - 4.5 g/dLOhioHealthALP enzyme act/zcy468 U/L40 - 140 U/LOhioHealthALT enzyme act/vol79 U/LHigh0 - 40 U/LOhioHealthAnion gap molar conc19 mmol/L10 - 20 mmol/LOhioHealthAST enzyme act/vol50 U/LHigh0 - 45 U/LOhioHealthBilirubin mass conc1.5 mg/dLHigh0 - 1.3 mg/dLOhioHealthCalcium mass conc9.0 mg/dL8.4 - 10.2 mg/dLOhioHealthChloride molar lesh883 mmol/L98 - 108 mmol/LOhioHealthCreatinine mass conc0.82 mg/dL0.5 - 1 mg/dLMaioHealth GFR/1.73 sq M predicted among non-blacks MDRD vol rate/area (S/P/Bld)The eGFR should be used for monitoring renal function only and not for medication dosing. [facility] HospitalGFR/1.73 sq M.predicted CKD-EPI vol rate/area (S/P/Bld)105>=60 mL/min/1.73 z6EvimVjjtxyLlqipiw mass fwnj425 mg/xMIyee25 - 99 mg/dLOhioHealth HCO3 molar conc22 mmol/L21 - 32 mmol/LOhioHealthInterpretation and review of laboratory resultsAbnormalOhioHealthPotassium molar conc3.7 mmol/L3.5 - 5.1 mmol/LOhioHealthProtein mass conc5.7 g/dLLow6 - 8 g/dLOhioHealthSodium molar vuka551 mmol/L135 - 145 mmol/LOhioHealthUrea nitrogen mass conc7 mg/dLLow8 - 25 mg/dLOhioHealthUrea nitrogen/Creatinine mass ratio8.5 mg/mgLowOhioHealth Bilirubin, Directon 65-94-0597Yaztlsvui.conjugated mass conc1.2 mg/dLHigh0 - 0.4 mg/dLOhioHealthInterpretation and review of laboratory resultsAbnormalOhioHealth CBCon 19-66-0785Gftxjfohaud distribution width Entitic volume (RBC)12.8 %11.6 - 14.8 %[facility] HospitalHematocrit Volume Fraction (Bld)33.3 %Low36 - 46 %[facility] Hemoglobin mass conc (Bld)10.9 g/dLLow12 - 16 g/dLOhioHealthInterpretation and review of laboratory resultsAbnormalOhiOKealthMCH Entitic mass (RBC)27.9 pg25 - 35 pgOhioHealthMCHC mass conc (RBC)32.7 g/dL31 - 37 g/dLOhioHealthMCV Entitic volume (RBC)85.4 fL78 - 102 fLOhioHealthNucleated RBC #/vol (Bld)0.00 10*3/uL OhioTrinity Health System Twin City Medical CenterNucleated RBC/100 WBC Ratio (Bld)0.0 %[facility] HospitalPlatelet mean volume Entitic volume (Bld)11.8 fL9 - 15.5 fLOhioHealthPlatelets #/vol (Bld)225 10*3/uL OhioHealthRBC #/vol (Bld)3.90 10*6/uLLowOhioHealthWBC #/vol (Bld)5.96 10*3/uL [facility] HospitalComprehensive Metabolic Panelon 27-77-5904Hszwrkh mass conc3.9 g/dL3.2 - 4.5 g/dLOhioHealthALP enzyme act/xgg635 U/L40 - 140 U/LOhioHealthALT enzyme act/vol84 U/LHigh0 - 40 U/LOhioHealthAnion gap molar conc17 mmol/L10 - 20 mmol/L OhioHealthAST enzyme act/vol39 U/L0 - 45 U/LOhioHealthBilirubin mass conc2.3 mg/dLHigh0 - 1.3 mg/dLOhioHealthCalcium mass conc9.2 mg/dL8.4 - 10.2 mg/dL OhioHealthChloride molar hbqi475 mmol/L98 - 108 mmol/LOhioHealthCreatinine mass conc0.84 mg/dL0.5 - 1 mg/dLOhioHealthGFR/1.73 sq M predicted among non-blacks MDRD vol rate/area (S/P/Bld)The eGFR should be used for monitoring renal function only and not for medication dosing.OhioHealthGFR/1.73 sq M.predicted CKD-EPI vol rate/area (S/P/Bld)102>=60 mL/min/1.73 e5DnqpYjutmkFmsxide mass conc 76 mg/dL65 - 99 mg/dLOhioHealthHCO3 molar conc24 mmol/L21 - 32 mmol/LOhioHealth Interpretation and review of laboratory resultsAbnormalOhioHealthPotassium molar conc4.0 mmol/L3.5 - 5.1 mmol/LOhioHealthProtein mass conc5.9 g/dLLow6 - 8 g/dL OhioHealthSodium molar ygxa346 mmol/L135 - 145 mmol/LOhioHealthUrea nitrogen mass conc8 mg/dL8 - 25 mg/dLOhioHealthUrea nitrogen/Creatinine mass ratio9.5 mg/mgLowOhioHealthLipaseon 38-97-0569Jtjbyvsaebvavu and review of laboratory resultsAbnormalOhioHealthLipase enzyme act/soy998 U/LHigh15 - 65 U/LOhioHealth hCG, Serum, Qualitativeon 38-26-7608NXC.beta subunit ( test) QlNegative NegativeOhioHealthInterpretation and review of laboratory resultsNormal OhioHealthNegative: The result is less than or equal to 5 mIU/mL of HCG. [facility] HospitalBilirubin, Directon 71-68-0071Uwzvjohja.conjugated mass conc3.8 mg/dL High0 - 0.4 mg/dLOhioHealthInterpretation and review of laboratory results AbnormalOhioHealthCBCon 49-43-6815Rwczhydqrcm distribution width Entitic volume (RBC)13.0 %11.6 - 14.8 %[facility] HospitalHematocrit Volume Fraction (Bld)35.0 %Low36 - 46 %[facility] HospitalHemoglobin mass conc (Bld)11.2 g/dLLow12 - 16 g/dLMaioTrinity Health System Twin City [facility] Center Interpretation and review of laboratory resultsAbnormalOhiChristian HospitalH Entitic mass (RBC)28.2 pg25 - 35 pgOhio Valley Surgical HospitalMCHC mass conc (RBC)32.0 g/dL31 - 37 g/dL [facility]V Entitic volume (RBC)88.2 fL78 - 102 fLOhioHealthNucleated RBC #/vol (Bld)0.00 10*3/uLOhioHealthNucleated RBC/100 WBC Ratio (Bld)0.0 % [facility] HospitalPlatelet mean volume Entitic volume (Bld)11.5 fL9 - 15.5 fLOhioHealth Platelets #/vol (Bld)213 10*3/uLOhioHealthRBC #/vol (Bld)3.97 10*6/uLLow OhioHealthWBC #/vol (Bld)4.93 10*3/uLOhioHealthCT Abdomen Pelvis With IV Contrast Onlyon 02-29-0159NVCEFEQHABD: CT OF THE ABDOMEN AND PELVIS WITH [...] with minimal anterolisthesis of L5 on S1. [facility], [facility] - 12/23/2018 3:04 AM EDT EXAMINATION: CT [...] chronic low back pain in some patients. [facility] Workstation ID: [id number]. Mild intra- and extrahepatic ductal dilatation, as [...] chronic low back pain in some patients. [facility] Workstation ID: [id number] Metabolic Panelon 12-23-2018 Albumin mass conc3.7 g/dL3.2 - 4.5 g/dLOhioHealthALP enzyme act/dcn113 U/L40 - 140 U/LOhioHealthALT enzyme act/vol93 U/LHigh0 - 40 U/LOhioHealthAnion gap molar conc16 mmol/L10 - 20 mmol/LOhioHealthAST enzyme act/vol37 U/L0 - 45 U/L OhioHealthBilirubin mass conc5.1 mg/dLHigh0 - 1.3 mg/dLOhioHealthCalcium mass conc9.2 mg/dL8.4 - 10.2 mg/dLOhioHealthChloride molar bmma870 mmol/L98 - 108 mmol/LOhioHealthCreatinine mass conc0.79 mg/dL0.5 - 1 mg/dLOhioHealthGFR/1.73 sq M predicted among non-blacks MDRD vol rate/area (S/P/Bld)The eGFR should be used for monitoring renal function only and not for medication dosing.[facility] GFR/1.73 sq M.predicted CKD-EPI vol rate/area (S/P/Bld)110>=60 mL/min/1.73 m2 OhioHealthGlucose mass conc69 mg/dL65 - 99 mg/dLOhioHealthHCO3 molar conc24 mmol/L21 - 32 mmol/LOhioHealthInterpretation and review of laboratory results AbnormalOhioHealthPotassium molar conc4.4 mmol/L3.5 - 5.1 mmol/LOhioHealth Protein mass conc6.0 g/dL6 - 8 g/dLOhioHealthSodium molar mnci668 mmol/L135 - 145 mmol/LOhioHealthUrea nitrogen mass conc9 mg/dL8 - 25 mg/dLOhioHealthUrea nitrogen/Creatinine mass ratio11.4 mg/mgOhioHealthLipaseon 12-23-2018 Interpretation and review of laboratory resultsNormalOhioHealthLipase enzyme act/vol16 U/L15 - 65 U/LOhioHealthXR ERCPon 17-69-4579Ctyoxlsnfazx ERCP images. Please refer to the procedure report for further details. Workstation ID: [id number], Rad In [facility] - 12/23/2018 1:50 PM EDT EXAMINATION: SPOT [...] procedure report for further details. Workstation ID: [id number]: SPOT IMAGE(S) FROM AN ERCP COMPARISON: None [...] intrahepatic bile ducts. No contrast extravasation is identified.[facility] ERCPEXAMINATION: SPOT IMAGE(S) FROM AN ERCP COMPARISON: [...] HUDSON on SunDec 23, 2018 1:47:37 PM EDTNoHudson River State HospitalComment on above:Order Comment: Reason for exam?:stones Injury/Trauma or Illness?:Illness/Other How long have you had these symptoms (acute/chronic)?:Acute Type of Exam?:Ongoing Additional signs and symptoms?:none Fluoro time in minutes:1.4 Fluoro dose in mGy?:19.26XR FLUOROSCOPY TIMEon 41-57-2613BT FLUOROSCOPY TIMEThis is an auto finalized result. Please refer to patient chart for further information. further information. further information.[facility] HospitalComment on above:Order Comment: Reason for exam?:intra op Injury/Trauma or Illness?:Illness/Other How long have you had these symptoms (acute/chronic)?:Acute Type of Exam?:Subsequent/Follow-up Additional signs and symptoms?:stones Fluoro time in minutes:1.4 Fluoro dose in mGy?:19.26XR Fluoroscopy Timeon 70-49-2255Xflg is an auto finalized result. Please refer to patient chart for further information. OhioHealthAcetaminophen Levelon 88-85-1063Lsyhwgauhptqm mass conc<5.0OhioHealth Interpretation and review of laboratory resultsNormalOhioHealthBasic Metabolic Panelon 35-71-1214Ofpad gap molar conc17 mmol/L10 - 20 mmol/LOhioHealthCalcium mass conc9.3 mg/dL8.4 - 10.2 mg/dLOhioHealthChloride molar bgoa891 mmol/L98 - 108 mmol/LOhioHealthCreatinine mass conc0.87 mg/dL0.5 - 1 mg/dLIllinoisHealth GFR/1.73 sq M predicted among non-blacks MDRD vol rate/area (S/P/Bld)The eGFR should be used for monitoring renal function only and not for medication dosing. [facility] HospitalGFR/1.73 sq M.predicted CKD-EPI vol rate/area (S/P/Bld)98>=60 mL/min/1.73 f4NpoeJlpbzvDlxyfws mass conc86 mg/dL65 - 99 mg/dLOhioHealthHCO3 molar conc23 mmol/L21 - 32 mmol/LOhioHealthInterpretation and review of laboratory resultsNormalOGrant HospitalealthPotassium molar conc3.9 mmol/L3.5 - 5.1 mmol/L OhioTrinity Health System Twin City Medical CenterSodium molar bayw229 mmol/L135 - 145 mmol/LOhioHealthUrea nitrogen mass conc13 mg/dL8 - 25 mg/dLMaioHealthUrea nitrogen/Creatinine mass ratio14.9 mg/mgOhioHealthCBCon 89-99-7357Dxteadtxfum distribution width Entitic volume (RBC)12.9 %11.6 - 14.8 %[facility] HospitalHematocrit Volume Fraction (Bld)35.2 %Low36 - 46 %[facility] HospitalHemoglobin mass conc (Bld)11.3 g/dLLow12 - 16 g/dLOhio Valley Surgical Hospital Interpretation and review of laboratory resultsAbnormalOhiThe MetroHealth SystemMCH Entitic mass (RBC)27.9 pg25 - 35 pgOhioHealthMCHC mass conc (RBC)32.1 g/dL31 - 37 g/dL [facility] HospitalV Entitic volume (RBC)86.9 fL78 - 102 fLOhioHealthNucleated RBC #/vol (Bld)0.00 10*3/uLOhioHealthNucleated RBC/100 WBC Ratio (Bld)0.0 % [facility] HospitalPlatelet mean volume Entitic volume (Bld)11.0 fL9 - 15.5 fLOhioHealth Platelets #/vol (Bld)233 10*3/uLOhioHealthRBC #/vol (Bld)4.05 10*6/uLLow OhioHealthWBC #/vol (Bld)6.98 10*3/uLOhioHealthCT ABDOMEN PELVIS WITH IV CONTRAST ONLYon 55-44-2619JY ABDOMEN PELVIS WITH IV CONTRAST ONLYEXAMINATION: CT [...] chronic low back pain in some patients. [facility] Workstation ID: [id number] Dictated by: LENNY VARGAS on SunDec 22, 2018 12:32:41 AM EDT Transcribed by: LOBO LIM on SunDec 22, 2018 12:58:50 AM EDT Finalized by: LENNY VARGAS on SunDec 23, 2018 3:02:12 AM EDTArchbold - Mitchell County HospitalComment on above:Order Comment: Reason for exam?:Epigastric, RUQ, RLQ pain Injury/Trauma or Illness?:Illness/Other How long have you had these symptoms (acute/chronic)?:Acute Type of Exam?:Initial Additional signs and symptoms?:vomitCalcium, Ionizedon 64-03-3948Xgvtzbz.ionized mass conc5.2 mg/dL4.5 - 5.3 mg/dLOhioHealthInterpretation and review of laboratory resultsNormalOhioHealthHEPATITIS PANEL, ACUTEon 12-80-5884JZX IgM Ql (S)NegativeNegativeOhioHealthHBV core IgM Ql (S)NegativeNegativeOhioHealthHBV surface Ag Ql (S)NegativeNegativeOhioHealthHCV Ab Ql (S)NegativeNegative OhioHealthInterpretation and review of laboratory resultsNormalOhioHealthTest performed using Colin MIRIAM immunoassay systemOhioHealthHepatic Function Panelon 84-00-0323Tfumfmc mass conc4.1 g/dL3.2 - 4.5 g/dLOhioHealthALP enzyme act/fee031 U/L40 - 140 U/LOhioHealthALT enzyme act/aun317 U/LHigh0 - 40 U/LOhioHealthAST enzyme act/vol72 U/LHigh0 - 45 U/LOhioHealthBilirubin mass conc4.8 mg/dLHigh0 - 1.3 mg/dLOhioHealthBilirubin.conjugated mass conc4.0 mg/dLHigh0 - 0.4 mg/dL OhioHealthInterpretation and review of laboratory resultsAbnormalOhioHealth Protein mass conc6.4 g/dL6 - 8 g/dLOhioHealthMagnesium Levelon 12-22-2018 Magnesium mass conc2.0 mg/dL1.6 - 2.4 mg/dLOhioHealthOtheron 12-22-2018 Interpretation and review of laboratory resultsNormalOhioHealthPhosphoruson 97-49-5199Wkjtcdwjx mass conc4.3 mg/dL2.7 - 4.5 mg/dLOhioHealthURINALYSISon 12-94-6157Xopdtprr Auto Ql (U)None SeenNone Seen /hpfOhioHealthBilirubin Ql [...] are present they are quantified by microscopic examination.[facility] ABDOMEN LIMITED STUDYon 41-46-0342NC ABDOMEN LIMITED STUDYEXAMINATION: RIGHT UPPER QUADRANT ULTRASOUND [...] ID: [id number] Dictated by: EMEKA CHAN on [place] Dec 22, 2018 12:13:12 AM EDT Transcribed by: EMEKA CHAN on [place] Dec 22, 2018 12:13:12 AM EDT Finalized by: EMEKA CHAN on [place] Dec 22, 2018 12:13:12 AM TArchbold - Mitchell County HospitalComment on above:Order Comment: US Gallbladder Reason for exam?:abd pain Injury/Trauma or Illness?:Illness/Other How long have you had these symptoms (acute/chronic)?:Acute History of cancer?:no Surgeries, chemotherapy, or radiation?:no Type of Exam?:Initial Additional signs and symptoms?:none1. Common bile duct is dilated with some intrahepatic duct dilatation. 2. Cholelithiasis without evidence of acute cholecystitis. Workstation ID: [id number], Rad In [facility] - 12/22/2018 12:16 AM EDT EXAMINATION: RIGHT [...] without evidence of acute cholecystitis. Workstation ID: [id number]: RIGHT UPPER QUADRANT ULTRASOUND 12/21/2018 11:54 pm [...] evidence of right upper quadrant ascites.OhioHealthBilirubin, Directon 65-88-4977Alqwwlcyz.conjugated mass conc 4.4 mg/dLHigh0 - 0.4 mg/dLOhioHealthInterpretation and review of laboratory resultsAbnormalOMercy HospitalC WITH AUTO DIFFERENTIALon 60-26-6955Shhmwhgbn #/vol (Bld)0.05 10*3/uLOhioHealthBasophils/100 WBC (Bld)0.6 %OhioTrinity Health System Twin City Medical CenterEosinophils #/vol (Bld)0.13 10*3/uLOhioHealthEosinophils/100 WBC (Bld)1.7 %[facility] Erythrocyte distribution width Entitic volume (RBC)12.9 %11.6 - 14.8 %[facility] Hematocrit Volume Fraction (Bld)40.0 %36 - 46 %[facility] HospitalHemoglobin mass conc (Bld)12.7 g/dL12 - 16 g/dLOhioHealthImmature granulocytes #/vol (Bld)0.02 10*3/uLOhioHealthImmature granulocytes/100 WBC (Bld)0.30 %OhioHealthComment on above:The IG parameter is the percentage of metamyelocytes, myelocytes, and promyelocytes.Lymphocytes #/vol (Bld)2.58 10*3/uLOhioHealthLymphocytes/100 WBC (Bld)32.8 %[facility] HospitalH Entitic mass (RBC)27.4 pg25 - 35 pgOhioHealthMCHC mass conc (RBC)31.8 g/dL31 - 37 g/dLKnox Community HospitalV Entitic volume (RBC)86.4 fL78 - 102 fLOhioHealthMonocytes #/vol (Bld)0.45 10*3/uLOhioHealthMonocytes/100 WBC (Bld) 5.7 %OhioTr[facility] System Twin City Medical CenterNeutrophils #/vol (Bld)4.63 10*3/uLOhioHealthNeutrophils/100 WBC (Bld)58.9 %OhioHealthNucleated RBC #/vol (Bld)0.00 10*3/uLOhioHealthNucleated RBC/100 WBC Ratio (Bld)0.0 %OhioHealthPlatelet mean volume Entitic volume (Bld) 10.8 fL9 - 15.5 fLOhioHealthPlatelets #/vol (Bld)272 10*3/uLOhioHealthRBC #/vol (Bld)4.63 10*6/uLOhioHealthWBC #/vol (Bld)7.86 10*3/uLOhioHealthComprehensive Metabolic Panelon 01-21-8013Widbyhp mass conc4.7 g/dLHigh3.2 - 4.5 g/dL OhioHealthALP enzyme act/idp097 U/LHigh40 - 140 U/LOhioHealthALT enzyme act/vol 164 U/LHigh0 - 40 U/LOhioHealthAnion gap molar conc18 mmol/L10 - 20 mmol/L OhioHealthAST enzyme act/vol97 U/LHigh0 - 45 U/LOhioHealthBilirubin mass conc5.4 mg/dLHigh0 - 1.3 mg/dLOhioHealthCalcium mass conc10.1 mg/dL8.4 - 10.2 mg/dL OhioHealthChloride molar dffx034 mmol/L98 - 108 mmol/LOhioHealthCreatinine mass conc1.02 mg/dLHigh0.5 - 1 mg/dLOhioHealthGFR/1.73 sq M predicted among non- blacks MDRD vol rate/area (S/P/Bld)The eGFR should be used for monitoring renal function only and not for medication dosing.OhioHealthGFR/1.73 sq M.predicted CKD-EPI vol rate/area (S/P/Bld)80>=60 mL/min/1.73 u4MedvVaiqfkEtwfuph mass conc 91 mg/dL65 - 99 mg/dLOhioHealthHCO3 molar conc26 mmol/L21 - 32 mmol/LOhioHealth Interpretation and review of laboratory resultsAbnormalOhioHealthPotassium molar conc3.7 mmol/L3.5 - 5.1 mmol/LOhioHealthProtein mass conc7.5 g/dL6 - 8 g/dL OhioHealthSodium molar cclw952 mmol/L135 - 145 mmol/LOhioHealthUrea nitrogen mass conc15 mg/dL8 - 25 mg/dLOhioHealthUrea nitrogen/Creatinine mass ratio14.7 mg/mgOhioHealthLipaseon 00-94-7589Kmrzxonvczthvp and review of laboratory resultsNormalOhioHealthLipase enzyme act/vol40 U/L15 - 65 U/LOhioHealthOtheron 67-75-4636Xmocq TubeHold for add-ons.OhioHealthComment on above:Auto resulted. Vital Signs Date TimeVital SignValuePerforming VbeovoroaHshdqpww18-37-7564 14:03-0400Body .1 cmAlexandrea Foy MD Work Phone: [phone]08-14-2025 14:03-0400 Body mass index (BMI) [Ratio]24.7 kg/j2KymixmsAlexandrea Foy MD Work Phone: [phone]08-14-2025 14:03-0400 Body .6 [degF]Alexandrea Foy MD Work Phone: [phone]08-14-2025 14:03-0400 Body .58 kgAlexandrea Foy MD Work Phone: [phone]08-14-2025 14:03-0400 Diastolic blood yibjzvqz31 mm[Hg]Alexandrea Foy MD Work Phone: [phone]08-14-2025 14:03-0400 Heart rate90 /Yaneth Foy MD Work Phone: [facility]08-14-2025 14:03-0400 Respiratory rate18 /Yaneth Foy MD Work Phone: [phone] [place], [place] 7132608-14-2025 14:03-0400 SaO2% (BldA) [Mass fraction]99 %Alexandrea Foy MD Work Phone: [phone]08-14-2025 14:03-0400 Systolic blood beqdshtt837 mm[Hg]Alexandrea Foy MD Work Phone: [phone] [address]-31-2024 14:03-0400 Body .56 cmC[facility]07-31-2024 14:03-0400Body mass index (BMI) [Ratio]28.1 kg/n3CgumkmnxvC[facility] Clinic [facility]07-31-2024 14:03-0400Body xfbgsrbvboj471.3 [degF][facility] 04-16-2024 14:03-0400Body mbjzqa86.44 kgC[facility] 04-16-2024 14:03-0400Diastolic blood oaqtcweq11 mm[Hg][facility]07-31-2024 14:03-0400Heart rate88 /minC[facility] Clinic [facility] 04-16-2024 14:03-8342YpO6% (BldA) [Mass fraction]99 %[facility]07-31-2024 14:03-0400Systolic blood icbvyqzd848 mm[Hg][facility]03-27-2023 10:20-0400Body .56 cmPsimone Sena Other [place] Other 03-27-2023 10:20-0400Body mass index (BMI) [Ratio] 30.04 kg/d3PhapbgBrooke Sena Other [place] Other 03-27-2023 10:20-0400Body iparewrsgfh59.9 [degF]Brooke Hirschmond Other [place] Other 03-27-2023 10:20-0400Body .38 kgBrooke Sena Other [place] Other 03-27-2023 10:20-0400Respiratory rate18 /minBrooke Sena Other [place] Other 03-27-2023 10:20-7985KnO2% (BldA) [Mass fraction]97 % Brooke Sena Other [place] [employer] Other 04-10-2019 08:19-0400Body Umjwxcjiixo37.29 [degF] [facility] CenterNjfpwdbQhhjJievjg32-22-0469 08:19-0400BP Toiuwfedi47 mm[Hg][facility] CenterSlyeeplEfzcAkoahy26-97-1737 08:19-0400BP Ewsjtqbh112 mm[Hg][facility]04-10-2019 08:-0400Pulse (Heart Rate)59 /minAdelia [facility] HospitalYjwkTuutrd53-46-4710 08:-0400Pulse Smuieqzc26 %[facility] 12-25-2018 08:-0400Respiratory Rate16 /minUniversity Hospitals Elyria Medical CenterVdebuwxJtvkMklvzz01-39-3507 04:-0400BMI (Body Mass Index)25.01 kg/z0WqirwtvUniversity Hospitals Elyria Medical CenterXefdcavOecfVlbirr66-97-9098 04:5669Lkfvch03.1 kgUniversity Hospitals Elyria Medical CenterIkfozyzSiihPyklse93-64-3281 11:2970Ixsysw354.6 [facility] Encounters Encounter DateEncounter TypeCare ProviderFacilityStart: 04-30-2025 End: 24-20-4747vtjumwrgzwGuypprt M Hoy MD Work Phone: [facility] Work Phone: Start: 04-30-2025 End: 24-90-9796Xacrbgm encounter procedurePatucker Castanon [employer]PERATOR-[facility] [place] Work Phone: Start: 04-16-2024 End: 46-82-7463fvwbpxcompKgdoiotfnDunlap Memorial Hospital Work Phone: Start: 04-16-2024 End: 42-52-0264Wohsybp encounter procedureF[facility]e [facility] [place] Work Phone: Start: 07-31-2023 End: 96-61-2249hjfizjjszmVGURT FAZIONot AvailableStart: 12-11-2022 End: 28-92-8091eobuabxcilAdcocm Dymond Other [place] [employer] Other Start: 50-51-4834Yvdbwu outpatient visit 25 minutes Brooke SenaFPG Urgent Care ClydeStart: 01-08-2020 End: 32-07-5857Nxzijvn encounter procedureDOKRISSY FOYFacility:G7Jvcvs: 99-94-1473Wclqrwx encounter procedureDOUGLAS HOYaniraFacility:G9Kyaer: 02-20-2019 End: 02-33-8673Ugzxsiq encounter procedurePAINOCENCIO ALLENFacility:T7Hqdyl: 12-24-2018 End: 15-10-7911Ydleyeilsf and management of inpatientDOCape Coral Hospitaltart: 12-21-2018 End: 95-83-9814Ixpxgnfyhp and management of inpatientAdelia Levine Bernard Work Phone: [facility] Med SurgComment on above: Abdominal pain, unspecified abdominal location (Primary Dx); Nausea and vomiting, intractability of vomiting not specified, unspecified vomiting type; Elevated blood pressure reading; Hyperbilirubinemia; Transaminitis; Elevated serum creatinine; Calculus of gallbladder and bile duct with obstruction without cholecystitis; Post-operative pain Procedures DateProcedureProcedure DetailPerforming ClinicianStart: 90-99-6941Znafo Strep (POC)Alexandrea Foy MD Work Phone: Start: 85-26-8645Ijyzz Strep (POC)Start: 12-25-2018 Bilirubin.direct [Mass/volume] in Serum or PlasmaAimee Lariccia Work Phone: Start: 25-12-0223Cyfcqbkp blood count (hemogram) panel - Blood by Automated countAimee Lariccia Work Phone: Start: 53-87-3664Hihdkpjpufycv metabolic 2000 panel - Serum or PlasmaAimee Lariccia Work Phone: Start: 12-24-2018 End: 34-91-4806RMZOLOSQPHVIEHU LAPAROSCOPICGrtiny Chowdhury Work Phone: Start: 03-13-1073Nphbknjlr.direct [Mass/volume] in Serum or PlasmaAimee Larsav Work Phone: Start: 37-82-2128Veqmowudltnaxlinyp.beta subunit ( test) [Presence] in Serum or PlasmaSabrina Berta Montes Work Phone: Start: 00-80-0580Yqgeyncy blood count (hemogram) panel - Blood by Automated countKimber Hough Work Phone: Start: 88-12-3417Xpxnybbuaxkvs metabolic 2000 panel - Serum or PlasmaAlexe Gianluca Work Phone: Start: 29-49-5552Lsirtd [Enzymatic activity/volume] in Serum or PlasmaAlexe Gianluca Work Phone: Start: 77-23-8232Kvbzniyjoy retrograde cholangiopancreatography (ERCP) with dilatation of bile duct using fluoroscopic guidanceOsmin Batista Work Phone: Start: 85-38-4654Qqvfniwiqvu up to 1 hour physician/qhp timeOsmin Batista Work Phone: Start: 10-20-4904Lmfcbtkncb retrograde cholangiopancreatographyOsmin Batista Work Phone: Start: 17-07-1924GDLLSOPYXJ RETROGRADE CHOLANGIOPANCREATOGRAPHYOsmin Batista Work Phone: Start: 54-84-6837Nzkvncxss.direct [Mass/volume] in Serum or PlasmaFranny Dela Cruz Work Phone: Start: 57-44-0746Yadommpn blood count (hemogram) panel - Blood by Automated countFranny Dela Cruz Work Phone: Start: 52-98-6852Lhdmlxhvgvrkm metabolic 2000 panel - Serum or PlasmaFranny Dela Cruz Work Phone: Start: 53-61-6684Yyzutt [Enzymatic activity/volume] in Serum or PlasmaFranny Dela Cruz Work Phone: Start: 67-72-8435Xfgnxbo.ionized [Mass/volume] in Serum or PlasmaFranny Dela Cruz Work Phone: Start: 16-42-2920Jxmws metabolic 2000 panel - Serum or PlasmaBenamayamin Edu Jerry Work Phone: Start: 95-20-7727Eteoxlss blood count (hemogram) panel - Blood by Automated countBenamayamin Edu Jerry Work Phone: Start: 44-57-1460Xlgpdur function 2000 panel - Serum or PlasmaBenlen Jerry Work Phone: Start: 24-42-0020Hsqibftgk [Mass/volume] in Serum or PlasmaFranny Dela Cruz Work Phone: Start: 49-66-6270Ghwjioufm [Mass/volume] in Serum or Aldo Dela Cruz Work Phone: Start: 98-44-1652Cm abdomen & pelvis w/contrast materialAlexander Ricki Huffman Work Phone: art: 82-41-1949PS scan of upper abdomenAlexand Ricki Huffman Work Phone: art: 33-04-6858XseoxiakwrKjyfkho Julianna Wagner Work Phone: Start: 82-44-3234Syqmpvbtlxzho [Mass/volume] in Serum or PlasmaAdelia Wagner Work Phone: art: 12-43-1666Jiiwgkrjc.direct [Mass/volume] in Serum or PlasmaAdelia Wagner Work Phone: [phone]-art: 78-85-9303Vcpnhpnd blood count with white cell differential, automatedAdelia Levine Pamryan Work Phone: [phone]-art: 56-40-6690Dulxjypw blood count with white cell differential, manualAdelia Wagner Work Phone: Start: 65-43-4289Lfqdnxvaedxrz metabolic 2000 panel - Serum or PlasmaAdelia Wagner Work Phone: Start: 90-46-4261AOMQ TOPTriage Protocol Emergency Start: 29-59-9485Sbofunohz panel measurementAdelia Wagner Work Phone: Start: 99-79-6112IXEMDZMP TOPTriage Protocol Emergency Start: 44-36-8570ZBRHG BLUE TOPTriage Protocol EmergencyStart: 76-91-3457SJOGJ GREEN TOPTriage Protocol EmergencyStart: 87-31-8178Lgispr [Enzymatic activity/volume] in Serum or PlasmaAdelia Wagner Work Phone: Start: 33-53-9020HRTW GREEN TOPTriage Protocol Emergency Plan of Treatment DateCare ActivityDetailAuthorStart: 52-20-2842Qdppqnszu vaccination given SEQUENTIAL INFLUENZA VACCINE (#1)[facility]HealthStart: 74-79-6030Nndlxka and physical examination, annual for health maintenanceRiverside Shore [facility] Hospital VisitOhioHealthStart: 39-58-8538Ldelhqtsz for Chlamydia trachomatisChlamydia ScreeningOhioHealthStart: 91-70-0192Bxztcen vaccinationTETANUS EVERY 10 YROhioHealthHCG ( test) Ql (U)POC , Urine MALORIE 12/21/2018 10:31 PM EDTOhioHealthProcedure on tissue specimenOhioHealthComment on above:Once for 1 Occurrences starting 12/24/2018, 1 completedRainbow DrawRainbow Draw STAT 12/21/2018 10:21 PM EDT [facility] Payers DatePayer CategoryPayerPolicy [id number] BCBS OUT OF STATE [facility] xxxxxxxxxxxx 2011-Presentxxxxxxxxxxxx [id number] Social History DateTypeDetailFacilityStart: 12-25-2018 End: 20-37-5211Jjvgmvg smoking status NHISNever smokerCincinnati Shriners Hospitalex Assigned At BirthNot on fileOhioHealthSex Assigned At [facility] Hospitalex Assigned At [facility]NoMount [facility] [place] Other Start: 45-10-1785Eyf Assigned At [facility] Health SystemexFemale (finding)[facility] Evaluation note 12-11-2022 Note Date & YlovClcjAzamrajy10-90-0854 Evaluation note* Encounter Date Diagnosis Assessment Notes [...] negative. She will be treated for strep [facility] [place] Other Evaluation note Note Date & TypeNoteFacilityEvaluation noteNo assessment information available [facility] Work Phone: Evaluation note Note Date & TypeNoteFacilityEvaluation note* Diagnosis Onset Date Resolution Status Admit Date Contact with or suspected exposure to dorcas acute respiratory syndrome noneactiveAugust 2024 1:45pmSore throatnoneactiveAugust 2024 1:45pm [facility] Work Phone: History general Narrative - Reported Note Date & TypeNoteFacilityHistory general Narrative - Reported* Type Description Date Surgical History cholecystectomy 2018 [place] Other Reason for referral (narrative) Note Date & TypeNoteFacilityReason for referral (narrative)No reason for referral information availableSelect Medical Specialty [facility] Work Phone: Hospital Course * Russell Cantor MD - 12/25/2018 12:40 PM EDT [facility] DISCHARGE SUMMARY Bogdan Keen Admitted: 12/21/2018 Discharge [...] 2 weeks. Dc home with Coclace, Zofran, [place] PRN. Transaminitis T bili 5.4, D bili [...] Stopping: Physician(s) Follow Up: Jackie Chowdhury MD [address] [place] [phone] Call Follow up 2 weeks post-op, please call for an appointment Alexandrea Foy MD [address] [facility] [address] Schedule an appointment as soon as [...] or dog food bags, or a vacuum bottle cleaner. No lifting anything heavier than 10lbs for [...] taking a prescription pain medicine, take an upqr-llp-cunnrfc medicine such as acetaminophen (Tylenol), ibuprofen (Advil, [...] Log into your personal health record on https://[email or web address][employer] Mind and enter F357 in the Education box to learn more about Cholecystectomy: What to Expect at Home. Current as of: January 18, 2015 Content Version: 10.6 7085-1738 [employer]. Care instructions adapted under license by your healthcare professional. If you have questions about a medical condition or this instruction, always ask your healthcare professional. [employer] disclaims any warranty or liability for your [...] - D/C home with Colace, Zofran PRN, [place] PRN - Discussed post-op care and follow up plans with the patient and her mother Jackie Chowdhury MD * Ruma Workman DO - 12/25/2018 9:00 AM EDT GENERAL SURGERY DAILY PROGRESS NOTE Patient Name: Bogdan Keen MR #: [id number] CSN #: [id number] Attending: Jackie Chowdhury MD Clinician: Ruma Workman DO Contact: [phone] Assessment/Plan Choledocholithiasis Cholelithiasis Transaminitis Hyperbilirubinemia - significantly [...] the patient home with prescriptions for Zofran, [place] and Colace - Follow-up in the surgery [...] Cantor MD - 12/25/2018 8:38 AM EDT [facility] DAILY PROGRESS NOTE Assessment and Plan Bogdan [...] Jayson Delarosa D.O. PGY1 * Gilda Power, MESSAGE AND DELIVERY SERVICE PRICER - 12/24/2018 10:11 AM EDT Daily Progress Note Patient Name: Bogdan Keen MR#: [id number] Assessment/Plan: 18 yo F who GI is [...] a 18 y.o. y/o female [place] [employer] with c/o epigastric and right upper [...] Examined & interviewed independently of the GI MESSAGE AND DELIVERY SERVICE PRICER. All labs, imaging, procedure & pathology reviewed. Directly involvement in management of the patient. Agree with GI MESSAGE AND DELIVERY SERVICE PRICER assessment & plan. Sign off. Thanks. * Russell Cantor MD - 12/24/2018 8:23 AM EDT [facility] DAILY PROGRESS NOTE Assessment and Plan Bogdan [...] consulted in the ED. Plan for Lap Saan today. Will follow up d/c recs post [...] NOTE Patient Name: Bogdan Keen MR #: [id number] CSN #: [id number] Attending: Jackie Chodwhury MD Clinician: Rickey Dean DO Contact: [phone] Assessment/Plan Choledocholithiasis Cholelithiasis Transaminitis Hyperbilirubinemia - significantly [...] Cantor MD - 12/23/2018 1:02 PM EDT [facility] DAILY PROGRESS NOTE Assessment and Plan Bogdan [...] NOTE Patient Name: Bogdan Keen MR #: [id number] CSN #: [id number] Attending: Jackie Chowdhury MD Clinician: Kimber Hough DO Contact: [phone] Assessment/Plan Choledocholithiasis Cholelithiasis Transaminitis Hyperbilirubinemia AF, vss [...] Chart reviewed. Patient is independent, visiting from [place], [place]. Undergoing GI work up for epigastric [...] Name: Bogdan Keen : 2000 MR #: [id number] Admit Date: 4050925 Physicians: Alexandrea Foy MD [...] with GI in her home city in [facility]. She denies dysuria, fever, chills, CP, diarrhea, [...] Bogdan Keen Admit Date: 4050925 MR #: [id number] : 2000 Physicians: Alexandrea Foy MD (Family); No ref. provider found (Referring) Chief Complaint/Reason for Visit: Abdominal pain History of Present Illness: Bogdan Keen is a 18 y.o. y/o female presenting [place] [employer] [place] with c/o epigastric and right upper quadrant abdominal pain that is worsened over the past several days. 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 [facility]/[employer] Workstation ID: [id number] US Abdomen Limited Study [...] chronic low back pain in some patients. [facility]/[employer] Workstation ID: [id number] Associated attestation - Jackie [...] ERCP followed by lap sana. Possible lap sana on 12/24/2018. Discussed with the patient and [...] Pt's mother at bedside. ED PROVIDER NOTE [facility] EMERGENCY DEPARTMENT NAME: Bogdan Keen AGE: 18 y.o. : 2000 VISIT DATE: 12/21/2018 CSN: [id number] PCP: Alexandrea Foy MD Chief Complaint Patient [...] cough. Patient states she li ves in [facility] and is visiting [place] this weekend. Reports having a thorough GI [...] Yellow Clarity, Urine Cloudy (A) Clear Specific [place] 1.031 (H) 1.005 - 1.025 pH, Urine [...] chronic low back pain in some patients. [facility] Workstation ID: [id number] US Abdomen Limited Study [...] Date of Service: 12/21/2018 - 12/24/2018 CSN: [id number] Procedure(s): CHOLECYSTECTOMY LAPAROSCOPIC POSSIBLE OPEN Pre-Operative Diagnoses: * Cholelithiasis Post-Operative Diagnoses: * Same as Pre-Op Diagnosis Surgeon(s) and Role: * Jackie Chowdhury MD - Primary * Rickey Dean DO - Resident - Assisting Anesthesiologist: Gonzalo Rossi MD; Dax Murphy MD BID CLERK: Debbi Albarran CRNA Product Development Intern: Vesta Lester RN Product Development Intern Relief: Anai Rand RN Scrub Person: ST Susana Anesthesia Specialist: Puneet Nguyen Operative findings: Cholelithiasis Intra and immediate [...] the patient. I discussed the patient with GUEST RELATIONS AGENT/PA. I agree with the GUEST RELATIONS AGENT/PA treatment plan. I agree with the GUEST RELATIONS AGENT/PA plan of care. I agree with the GUEST RELATIONS AGENT/PA dispo as documented. Patient is an 18-year-old [...] section and content) DATE CREATED AUTHOR 12/28/2018 [facility] DATE CREATED AUTHOR AUTHOR'S ORGANIZ ATION 01/14/2020 [facility] DATE CREATED AUTHOR AUTHOR'S ORGANIZ ATION 08/01/2023 [facility] EPIC Care Teams (unrecognized sec tion and content) Team Status: Active Member Role Status Dates Alexandrea Foy MD Primary Care Provider Active Team Status: Inactive Member Role Status Dates Alexandrea Foy MD Primary Care Provider Active Start: April 16, 2024 End: April 16marlene De La Garza APRNAtdanni ProviderActiveStart: April 16, 2024 End: April 16, 2024 Team Status: Inactive Member Role Status Dates Alexandrea Foy MD Primary Care Provider Active Start: April 30, 2025 End: April 30, 2025Cris Castanon APRN GUEST RELATIONS AGENT-CAttending Provider ActiveStart: April 30, 2025 End: April [...] BE BASED ON THE PRIMARY CLINICAL RECORDS. [employer] provides no warranty or guarantee of the accuracy or completeness of information in this document.
== END 2025-07-20 12:00 | disposition home or self-care (01) ==
LOC: LAB 14:07
PROVIDERS: PCP Family Medicine; Visit Provider Obstetrics & Gynecology
DX: Z51.81 Encounter for therapeutic drug level monitoring (principal); Z32.01 Encounter for pregnancy test, result positive
CPT/HCPCS: 36415; 84702

== ENCOUNTER 2025-08-07 08:41 | Outpatient (OUT) | payer BC, SELFPAY ==
--- OUTSIDE RECORDS SUMMARY | 2025-08-07 08:45 | XMS_ITS | CCD ---
Author Organization [facility] Inform ion Partnership [facility] Care Team Providers Care Lead Man Over All Dies In [employer] Name Role Phone Alexandrea Foy Primary Care Provider [phone] ALEXANDREA FOY Primary Care Unavailable [facility] Consulting KISHAN Langston Admitting Unavail [...] of OnsetReaction(s) Facility (5 sources)Amoxicillin; Translations: [AMOXICILLIN]Drug Swuqqkn02-55-9476Xrxfz [facility] (1 source)AmoxicillinDrug Dqgtcol13-14-8018Qzl [facility] Repository (2 sources)PenicillinsAllergy to jwdaaxdcj18-40-7360EtnhsYwdgbfsqnOhio[facility] Medications Current Medications MedicationDrug Class(es)DatesSig (Normalized)Sig (Original)acetaminophen 325 mg / HYDROcodone bitartrate 5 mg oral tablet (2 sources)Opioid AgonistStart: 12-25-2018 End: 55-60-7913blyx 1 tablet by mouth every six hours as needed for pain HYDROcodone-acetaminophen (NORCO) 5-325 mg per tablet Indications: Post- operative pain Take 1 (one)tablet by mouth every 6 (six) hours as needed (moderate pain) . 20 tablet 0 12/25/2018 01/01/2019 ActiveStart: 12-25-2018 End: 43-81-6885rcrb 1 tablet by mouth every six hours as neededHYDROcodone- acetaminophen (NORCO) 5-325 mg per tablet 1 tabletNo Name (No Known Home Meds) (1 source)Start: 93-81-5500De Name (No Known Home Meds) Active April 30, 2025 12:00amondansetron 4 mg oral tablet (8 sources)Serotonin-3 Receptor AntagonistStart: 12-25-2018 End: 66-73-5727qqpt 1 tablet by mouth every eight hours as neededondansetron (ZOFRAN) 4 MG tablet Take 1 (one) tablet (4 mg total) by mouth every 8 (eight) hours asneeded for nausea . 20 tablet 0 12/25/2018 01/24/2019 ActiveStart: 12-25-2018 End: 12-80-7335aijr 1 tablet by mouth every eight hours [...] or as directed by anesthesiaStart: 12-24-2018 End: 53-59-6158vmsxkfngjoh (ZOFRAN) injection 4 mgStart: 12-21-2018 End: 06-83-8294ntlu 4 mg intravenous route every four hours as neededondansetron (ZOFRAN) injection 4 mgsucralfate 1000 mg oral tablet (1 source)Aluminum Complextake 1 tablet by mouth four times daily before mealtimesucralfate (CARAFATE) 1 gram tablet Take 1 g by mouth 4 (four) times a day before meals . 0 Active Completed/Discontinued Medications MedicationDrug Class(es)DatesSig (Normalized)Sig (Original)acetaminophen 325 mg oral tablet (2 sources)Start: 12-25-2018 End: 14-43-9205erlqexjopgcam (TYLENOL) tablet 650 mgStart: 12-24-2018 End: 56-91-9534jeiq 650 mg by mouth qfno592 mg, Oral, Once, Sun12/24/18 at 1145, For 1 dose, Pre-Procedure If patient has not had acetaminophen containing products within the past 6 hours.azithromycin 250 mg oral tablet (3 sources)Macrolide AntimicrobialStart: 04-16-2024 End: 02-81-8694Sozppottxezk 250 mg tablet Discontinued 0 PO .COMPLEX April 16, 2024 12:00am April 30, 2025 2:00pm For 250 mg dose pack: take 500 mg today (day 1), then 250 mg for 4 days (days 2-5) POStart: 97-97-7270Axzswkvcykqa Active 0 PO .COMPLEX April 16, 2024 [...] meq/ml injectable solution (2 sources)Start: 12-23-2018 End: 42-91-0502ojnysagz Ringers ltdlgvxy640 ml ciprofloxacin 2 mg/ml injection (1 source)Quinolone AntimicrobialStart: 12-22-2018 End: 20-25-5067vsag 400 mg intravenous route every twelve hoursciprofloxacin (CIPRO) IVPB 400 mg (premix)diphenhydrAMINE (1 source)Histamine-1 Receptor AntagonistStart: 12-24-2018 End: 17-17-0754zpnemzfanhKOTMT (BENADRYL) injection 25 mgdocusate sodium 100 mg oral capsule (4 sources)Start: 12-25-2018 End: 55-86-1095tazi 1 capsule by mouth twice dailydocusate sodium (COLACE) 100 MG capsule Take 1 (one) capsule (100 mg total) by mouth 2 (two) times a day Hold if having loose stools for 10 days . 10 capsule 0 12/25/2018 12/25/2018 DiscontinuedNorgestimate-Ethinyl Estradiol (3 sources)Progestin, EstrogenStart: 01-07-2020 End: 31-38-4284luos 1 tablet by mouth once dailyNorgestimate-Ethinyl Estradiol 0.18/0.215/0.25 mg-35 mcg (28) tablet Discontinued 1 TAB PO Daily January 07, 2020 12:00am April 16, 2024 2:06pmStart: 01-07-2020 End: 17-48-5480vhms 1 tablet by mouth once dailyNorgestimate-Ethinyl Estradiol Discontinued 1 TAB PO Daily January 07, 2020 12:00am April 1642:06pmtake 1 tablet by mouth once dailynorgestimate-ethinyl estradiol (ORTHO TRI- CYCLEN,TRINESSA) 0.18/0.215/0.25 mg-35 mcg (28) per tablet Take 1 tablet by mouth daily . 0 Activegabapentin 300 mg oral capsule (1 source)Anti-epileptic AgentStart: 12-24-2018 End: 71-43-5434xetm 300 mg by mouth fydf062 mg, Oral, Once, Tu12/24/18 at 1145, For 1 dose, Pre-Procedure If patient has not had a dose of gabapentin or pregabalin today.Start: 12-24-2018 End: 09-32-6259dyxc 300 mg by mouth tjks375 mg, Oral, Once, Sun12/24/18 at 1145, For 1 dose, Pre-Procedure If patient has not had a dose of gabapentin or pregabalin today.HYDROmorphone (DILAUDID) 0.5 mg/mL injection - ADS Override Pull (1 source)Start: 12-24-2018 End: 79-75-5733WWIDKdsbisuvu (DILAUDID) 0.5 mg/mL injection - ADS Override [...] injection 75 mL (1 source)Start: 12-22-2018 End: 41-21-3886rzhuduhjq (ISOVUE-370) 76 % injection 75 mL1 ml ketorolac tromethamine 30 mg/ml injection (3 sources)Nonsteroidal Anti-inflammatory Drug, Cyclooxygenase InhibitorStart: 12-25-2018 End: 77-27-1412urun 30 mg intravenous route every eight hours as neededketorolac (TORADOL) injection 30 mgStart: 12-24-2018 End: 38-75-5110uxjj 15 mg intravenous route every eight hours as neededketorolac (TORADOL) injection 15 mgStart: 12-22-2018 End: 00-22-2008niyu 15 mg intravenous route every eight hours as neededketorolac (TORADOL) injection 15 mglidocaine viscous 2% 10 mL and maalox plus 30 mL (GI COCKTAIL) 40 mL solution (2 sources)Start: 12-22-2018 End: 97-68-4983cgju 40 mL by mouth every eight hours as neededlidocaine viscous 2% 10 mL and maalox plus 30 mL (GI COCKTAIL) 40 mL solutionStart: 12-21-2018 End: 60-21-1047epyahioxp viscous 2% 10 mL and maalox plus 30 mL (GI COCKTAIL) 40 mL solutionmagnesium hydroxide 80 mg/ml oral suspension (1 source)Start: 12-22-2018 End: 02-97-5846apclwkxkz hydroxide (MOM) 400 mg/5 mL suspension 2,400 mg metroNIDAZOLE 250 mg oral tablet (1 source)Nitroimidazole AntimicrobialStart: 12-22-2018 End: 75-28-6090lepakTZOQFWVV (FLAGYL) tablet 500 mgnaloxone (NARCAN) injection 0.1 mg (1 source)Start: 12-24-2018 End: 80-63-5310qnoqyzwz (NARCAN) injection 0.1 mgoxyCODONE hydrochloride 5 mg oral tablet (3 sources)Opioid AgonistStart: 12-24-2018 End: 80-20-6277tutx 1 tablet by mouth every six hours [...] tablet (3 sources)Proton Pump InhibitorStart: 12-25-2018 End: 03-38-0244jwpszfnbhhaj (PROTONIX) EC tablet 40 mgStart: 12-22-2018 End: 23-50-451026 mg, Intravenous, Daily, First dose on 12/22/18 at 0900take 1 tablet by mouth once dailypantoprazole (PROTONIX) 20 MG tablet Take 20 mg by mouth daily . 0 Wrlyfd23 hr scopolamine 0.0139 mg/hr transdermal system (1 source)AnticholinergicStart: 12-22-2018 End: 26-65-3227lkhfndwniqk (TRANSDERM-SCOP) 1 mg over 3 days patch 1 caxcr8400 ml sodium chloride 9 mg/ml injection (4 sources)Start: 12-23-2018 End: 62-66-8645uipjsy chloride 0.9% (NS)Start: 12-22-2018 End: 86-29-0428ivvckv chloride 0.9 % (NS) infusion - ADS Override PullStart: 12-21-2018 End: 98-87-6793994 mL/hr, Intravenous, Continuous, Starting 12/22/18 at 0330, For 16 hours 125 mL/hr for 2 Liters, then convert to saline lock Problems Active Problems Problem ClassificationProblemDateDocumented DateEpisodic/ChronicAbdominal pain (4 sources)Abdominal pain; Translations: [Unspecified abdominal pain]Onset: 64-73-6675FrdrarmfNpqhppn tract disease (3 sources)Cholelithiasis with obstruction; Translations: [Calculus of gallbladder and bile duct without cholecystitis with obstruction]Onset: 94-90-3980GfnsemqlKhdtd and electrolyte disorders (4 sources)Dehydration; Translations: [DEHYDRATION]Onset: 84-27-9792Yjnqdytz Hepatitis (2 sources)Acute hepatitis; Translations: [Acute hepatitis]Onset: 12-22-2018 43-36-7960EhnswlhjWpdztwvvoftag and screening for infectious disease (1 source)Contact with or exposure to other viral diseases; Translations: [Contact with or suspected exposureto severe acute respiratory syndrome coronavirus 2 (SARS-CoV-2)]07-51-9421OfuwutalAxffgf and vomiting (3 sources)Nausea and vomiting; Translations: [Nausea with vomiting, unspecified]Onset: 15-59-0136DewodqyqQbsfhgewniggg gastroenteritis (1 source)Noninfective gastroenteritis and colitis, unspecified; Translations: [NONINFECTIVE GE AND COLITIS UNS]Onset: 87-51-0076IqfbqbltYuxih circulatory disease (1 source)Elevated blood pressure; Translations: [Elevated blood pressure reading]EpisodicOther circulatory disease (2 sources)Elevated blood-pressure reading, without diagnosis of hypertension; Translations: [Elevated blood-pressure reading, without diagnosis of hypertension]Onset: 55-16-1151GenjrnxvFmtpm liver diseases (1 source)Enzyme level - finding; Translations: [Transaminitis]EpisodicOther liver diseases (2 sources)Nonspecific elevation of levels of transaminase and lactic acid dehydrogenase [LDH]; Translations: [Nonspecific elevation of levels of transaminase and lactic acid dehydrogenase (ldh)]Onset: 72-88-6353XgpmifkjIwcmo nervous system disorders (1 source)Postoperative pain ; Translations: [Post-operative pain]EpisodicOther nervous system disorders (2 sources)Other acute postprocedural pain; Translations: [Other acute postprocedural pain]Onset: 24-75-3115RunrpaxtDbfbf nutritional; endocrine; and metabolic disorders (1 source)Hyperbilirubinemia; Translations: [Hyperbilirubinemia]ChronicOther nutritional; endocrine; and metabolic disorders (2 sources)Other disorders of bilirubin metabolism; Translations: [Other disorders of bilirubin metabolism]Onset: 08-95-4292CapoafiSmerg screening for suspected conditions (not mental disorders or infectious disease) (4 sources)Serum creatinine raised; Translations: [Other specified abnormal findings of blood chemistry]Onset: 53-25-9971TjonhandTcbap upper respiratory infections (5 sources)Sore throat symptom; Translations: [Acute pharyngitis, unspecified] EpisodicOtitis media and related conditions (1 source)Acute bilateral otitis media ; Translations: [Otitis media, unspecified, bilateral]25-12-8144IqgtzodmFeomsdwc codes; unclassified (1 source)Acquired absence of other specified parts of digestive tract; Translations: [ACQ ABSENCE OTH PART DIGESTV TRACT]Onset: 28-79-4236UteozqvrNgcqt infection (2 sources)Infectious mononucleosis; Translations: [Infectious mononucleosis, unspecified without complication]88-07-0190BjvostjpTzrlzqn on above:Problem List clean-up per request of Phys. EHR Cmte Past or Other Problems Problem ClassificationProblemDateDocumented DateEpisodic/ChronicOther connective tissue disease (1 source)Pain in right arm; Translations: [PAIN IN RIGHT ARM]Onset: 03-06-2019 EpisodicPhlebitis; thrombophlebitis and thromboembolism (1 source)Phlebitis and thrombophlebitis of other sites; Translations: [PHLEBITIS THROMBOPHLEBITIS OTH SITE]Onset: 38-50-0303DezijwowAhvnkexo codes; unclassified (4 sources)Localized edema; Translations: [LOCALIZED EDEMA]Onset: 02-20-2019 Episodic Results Test NameValueInterpretationReference RangeFacilityNo Panel InformationOrdered By: Cris Castanon on 12-72-6476Cghxz Strep (POC)[facility] Panel InformationOrdered By: Gloria De La Garza on 46-97-9672Qooip Strep (POC) [facility] HospitalQuick Strepon 12-11-2022S. pyogenes Org specific cx Ql (Throat)NegativeNoProclivity Systems Other Quick StrepNoProclivity Systems Other HEPATITIS PANEL, ACUTEon 59-24-1474DKeTl Screen NegativeNormalNegativeEast [facility] Regional HospitalComment on above:Performed By: #### CBC #### [facility] [address] [place] [address] Bakari Conway A Ab, IgMNegativeNormalNegativeEast [facility] Regional HospitalComment on above:Performed By: #### CBC #### [facility] [address] [address] Bakari Conway B Core Ab, IgMNegativeNormalNegativeThe [facility] EastComment on above:Performed By: #### CBC #### [facility] [address] [address] Bakari HesterenHep C Virus Ab<0.5Hyquat9.0-0.9The [facility] EastComment on above:Result Comment: Negative: < 0.8 Indeterminate: 0.8 - 0.9 Positive: > 0.9 . The [facility] recommends that a positive HCV antibody result be followed up with a HCV Nucleic Acid Amplification test (212916).Performed By: #### CBC #### [facility] [address] [address] Bakari KarenAMYLASEon 22-42-7639Stfwpfa [Catalytic activity/Vol]35 U/LNormal 31-110The [facility] EastComment on above:Performed By: #### RAUL, KELSEA, CMP ####[facility] Khb[address] [place], [place] [address]Gerken KarenCBC AUTO DIFFon 86-15-5580Ibrgdqops (Bld) [#/Vol]0.2 103/ulCritically high 0.0-0.1The [facility] EastComment on above:Performed By: #### CBC ####[facility] [address]pc[address] [place], [place] [address]Gerken Shannan Basophils/100 WBC (Bld)1.3 %Normal0.2-2.0The [facility] EastComment on above: Performed By: #### CBC ####[facility] F[address]xc[address] [place], [place] [address]Gerken KarenEosinophils (Bld) [#/Vol]0.0 103/ulNormal 0.0-0.7The [facility] EastComment on above:Performed By: #### CBC ####[facility] Webmzgzvch[address] [place], [place] [address]Gerken Shannan Eosinophils/100 WBC (Bld)0.3 %Critically low0.9-7.0The [facility] EastComment on above:Performed By: #### CBC ####[facility] Odoqnqbdcz[address] KarenErythrocyte distribution width (RBC) [Ratio]12.8 %Uvdagi47.0-15.0The [facility] EastComment on above:Performed By: #### CBC ####[facility] Mrbqfdlnhh[address] KarenHematocrit (Bld) [Volume fraction]39.2 %Ellofe48.0-48.0The [facility] EastComment on above:Performed By: #### CBC ####[facility] Uayagsfffh2230 [address] KarenHemoglobin (Bld) [Mass/Vol]13.0 g/rNEgvnki39.0-16.0The [facility] EastComment on above: Performed By: #### CBC ####[facility] Ekqnax[address] [place] [address] KarenIG #0.18 10e3/ulCritically high0.00-0.03 The [facility] EastComment on above:Performed By: #### CBC ####[facility] [address] [place] [address] KarenIG %1.5 %Critically high0.0-0.5The [facility] EastComment on above:Performed By: #### CBC ####[facility] Pumpjlghps[address] [place] [address] KarenLymphocytes (Bld) [#/Vol]9.1 103/ulCritically high1.2-3.8The [facility] EastComhenry [facility] on above:Performed By: #### CBC ####[facility] Qdaahjovfd[address] [place] [address] KarenLymphocytes/100 WBC (Bld)76.0 %Critically high20.5-60.0The [facility] EastComhenry [facility] on above: Performed By: #### CBC ####[facility] [address]un[address] [place] [address] KarenMANUAL DIFF REQNONormalThe [facility] EastComment on above:Performed By: #### CBC ####[facility] [address] [address]Gerken KarenSTONY [facility] (RBC) [Entitic mass]27.9 hqVoiqhp95.7-34.0The [facility] EastComment on above: Performed By: #### CBC ####[facility] [address]leyn[address] [place], [place] [address]Gerken KarenMC (RBC) [Mass/Vol]33.2 g/dLNormal 29.9-35.2The [facility] EastComment on above:Performed By: #### CBC ####[facility] R[address]zqkorm[address] [place] [address] KarenMCV (RBC) [Entitic vol]84.1 yHHnpigo42.0-99.0The [facility] EastComment on above:Performed By: #### CBC ####[facility] [address]rz[address]vkej[address] [place] [address] KarenMonocytes (Bld) [#/Vol]0.6 103/ulNormal 0.3-0.8The [facility] EastComment on above:Performed By: #### CBC ####[facility] Mqrsetdzep[address] [place] [address] Shannan Monocytes/100 WBC (Bld)4.9 %Normal1.7-12.0The [facility] EastComment on above: Performed By: #### CBC ####[facility] Mszbmysqpg[address] [place] [address] KarenNeutrophils (Bld) [#/Vol]1.9 103/ulNormal 1.4-6.5The [facility] EastComment on above:Performed By: #### CBC ####[facility] [address] [place] [address] Shannan Neutrophils/100 WBC (Bld)16.0 %Critically low43.0-75.0The [facility] Comment on above:Performed By: #### CBC ####[facility] [address]fdosnpawo[address] [place] [address] KarenPlatelet mean volume (Bld) [Entitic vol]11.5 fLNormal9.5-13.5The [facility] EastComment on above: Performed By: #### CBC ####[facility] Ysxlifvabw1376 [address] KarenPlatelets (Bld) [#/Vol]138 103/ul Critically krh159-621Wnq [facility] EastComment on above:Result Comment: count okPerformed By: #### CBC ####[facility] Fulpgesany[address] KarenRBC (Bld) [#/Vol]4.66 106/ulNormal 4.20-5.40The [facility] HospitalComment on above:Performed By: #### CBC ####[facility] [address] [place] [address] KarenWBC (Bld) [#/Vol]12.0 103/ulCritically high4.0-11.0The [facility] Comment on above:Performed By: #### CBC ####[facility] [address]pzf[address]wo[address] [place] [address] KarenCULTURE URINEon 01-09-2020 CULTURE URINECulture Observations: No growth.NormalThe [facility] EastComment on above:Performed By: #### CBC #### [facility] [address] KarenDIFFERENTIAL MANUALon 81-96-4239FWRLUFCE LYMPH #2.86 103/ulNormalThe [facility] EastComment on above:Performed By: #### DIFF ####[facility] Phyipastph[address] [place] [address] KarenATYPICAL LYMPH % 24 %NormalThe [facility] EastComment on above:Performed By: #### DIFF ####[facility] [address] [place] [address] KarenBAND #0.2 103/ulNormal0.0-0.3The [facility] EastComment on above: Performed By: #### DIFF ####[facility] [address] [place] [address] KarenBAND %2 %Normal0-5The [facility] Comment on above:Performed By: #### DIFF ####[facility] [address]fr[address] [place] [address] KarenBASOM #0.00 103/ulNormal 0.00-0.10The [facility] HospitalComment on above:Performed By: #### DIFF ####[facility] [address] [place] [address] KarenBASOM %0.0 %Critically low0.2-2.0The [facility] HospitalComment on above: Performed By: #### DIFF ####[facility] Rvfuyjvonw[address] [place] [address] KarenBLAST #NormalThe [facility] HospitalComment on above:Performed By: #### DIFF ####[facility] [address]fs[address] [place] [address] KarenBLAST %NormalThe [facility] HospitalComment on above:Performed By: #### DIFF ####[facility] Afkwfdyrai[address] [place] [address] KarenCORRECTED WBCNormal4.0-11.0The [facility] EastComment on above:Performed By: #### DIFF ####[facility] [address]priiyww[address] [place] [address] KarenEosinophils (Bld) [#/Vol]0.12 103/ulNormal0.00-0.70The [facility] EastComment on above: Performed By: #### DIFF ####[facility] [address]ibbs[address] [place] [address] KarenEosinophils/100 WBC (Bld)1.0 %Normal 0.9-7.0The [facility] EastComment on above:Performed By: #### DIFF ####[facility] [address]se[address]qaw[address] [place] [address] KarenLYMPHM #5.24 103/ulCritically high1.20-3.80The [facility] EastComment on above:Performed By: #### DIFF ####[facility] Odieigygaf[address]334 [address] KarenLYMPHM%44.0 %Dhyulc92.5-60.0The [facility] HospitalComment on above:Performed By: #### DIFF ####[facility] Z[address]xacrs[address] [place] [address] KarenMETAMYELOCYTE # NormalThe [facility] HospitalComment on above:Performed By: #### DIFF ####[facility] Frabkitaju[address] [place] [address] Shannan METAMYELOCYTE %NormalThe [facility] HospitalComment on above:Performed By: #### DIFF ####[facility] [address] [place] [address] KarenMONOM#0.71 103/ulNormal0.30-0.80The [facility] HospitalComment on above:Performed By: #### DIFF ####[facility] [address]caysqgqsc[address] [place] [address] KarenMONOM%6.0 %Normal1.7-12.0The [facility] HospitalComment on above:Performed By: #### DIFF ####[facility] [address] [place] [address] KarenMYELOCYTE #Normal The [facility] EastComment on above:Performed By: #### DIFF ####[facility] [address]ukaefgs[address] [place] [address] Shannan MYELOCYTE %NormalThe [facility] HospitalComment on above:Performed By: #### DIFF ####[facility] [address] [place] [address] KarenNRBCNormalThe [facility] HospitalComment on above:Performed By: #### DIFF ####[facility] [address]ks[address]ngd[address] [place] [address] KarenSEG #2.74 103/ulNormal1.40-6.50The [facility] HospitalComment on above: Performed By: #### DIFF ####[facility] [address]liui[address] [place] [address] KarenSegmented neutrophils/100 WBC (Bld)23.0 % Critically low43.0-75.0The [facility] EastComment on above:Performed By: #### DIFF ####[facility] [address]idqxmmo[address] [place] [address] KarenWBC (Bld) [#/Vol]11.9 103/ulCritically high4.0-11.0The [facility] EastComment on above:Performed By: #### DIFF ####[facility] [address] [place] [address] KarenLIPASEon 87-02-7840Mbeuxi [Catalytic activity/Vol]107.0 U/YBpdivg93.0-300.0The [facility] EastComhenry [facility] on above:Performed By: #### RAUL, LIPA, CMP ####[facility] [address]trqaauwoh[address] [place] [address] KarenPROF 14(COMP METB)on 30-29-3413Qpxfhij [Mass/Vol]3.4 g/dLCritically low3.5-5.0The [facility] EastComment on above:Performed By: #### RAUL, LIPA, CMP ####[facility] Jfdmwsfgiq[address] [place] [address] KarenAlbumin/Globulin [Mass ratio]1.7 {ratio}NormalThe [facility] EastComhenry [facility] on above:Performed By: #### RAUL, LIPA, CMP ####[facility] [address]trd[address] [place] [address] KarenALP [Catalytic activity/Vol]376 U/L Critically maic85-466[facility] on above:Performed By: #### RAUL, LIPA, CMP ####[facility] [address] [place] [address] KarenALT [Catalytic activity/Vol]199 U/LCritically high9-52The [facility] Hospitalment on above:Performed By: #### RAUL, LIPA, CMP ####[facility] [address]xuxsb[address] [place] [address] KarenAnion gap [Moles/Vol]14.2 mmol/LNormalThe [facility] Hospitalment on above:Performed By: #### RAUL, LIPA, CMP ####[facility] Hzgqrwfcfc[address] KarenAST [Catalytic activity/Vol]122 U/L Critically hyeb48-13Knp [facility] Hospitalment on above:Performed By: #### RAUL, LIPA, CMP ####[facility] Znnmu[address]ip[address] KarenBilirubin Ql (U)5.3 mg/dLCritically high0.2-1.3The [facility] EastComment on above:Performed By: #### RAUL, LIPA, CMP ####[facility] [address] [place] [address] KarenCalcium [Mass/Vol]8.8 mg/dLNormal8.4-10.2[facility] on above:Performed By: #### RAUL, LIPA, CMP ####[facility] Z[address] [place] [address] KarenChloride [Moles/Vol]101 mmol/IFsgkmb45-067 The [facility] EastComment on above:Performed By: #### RAUL, LIPA, CMP ####[facility] [address] [place] [address] KarenCO2 [Moles/Vol]26.1 mmol/PCwefjd31.0-30.0The [facility]ment on above:Performed By: #### RAUL, LIPA, CMP ####[facility] [address] [place] [address] KarenCreatinine [Mass/Vol]0.94 mg/dL Normal0.52-1.04The [facility] Hospitalment on above:Performed By: #### RAUL, LIPA, CMP ####[facility] Z[address]awf[address]jih[address] KarenEGFR-AF NEW ZEALANDER>60Normal>=60The [facility] EastComment on above:Performed By: #### RAUL, LIPA, CMP ####[facility] Hzxnvsccnq[address] [place], [place] [address]Reczfm KarenEGFR-NON AF NEW ZEALANDER>60Normal >=60The [facility] Hospitalment on above:Performed By: #### AVELINO CARTERA, CMP ####[facility] [address] [place], [place] [address]Tcumzk KarenGlobulin (S) [Mass/Vol]3.3 g/dLNormalThe [facility] EastComment on above: Performed By: #### RAUL LIPA, CMP ####[facility] [address] [place] [id number] KarenGlucose [Mass/Vol]101 mg/jFStgghx44-903 [facility] [place] [facility] HospitalComhenry [facility] on above:Performed By: #### KELSEA CARTER, CMP ####[facility] [address] [place] [address]Gerken KarenPotassium [Moles/Vol]3.3 mmol/LCritically low3.4-5.0[facility] [place] [facility] Comment on above:Performed By: #### RAUL LIPA, CMP ####[facility] Undirewsfx[address] [place], [place] [address]Gerken KarenProtein [Mass/Vol]6.7 g/dLNormal6.1-8.2[facility] on above:Performed By: #### RAUL LIPA, CMP ####[facility] [address] [place] [id number] KarenSodium [Moles/Vol]138 mmol/SAvuvlq423-242 [facility] on above:Performed By: #### RAUL LIPA, CMP ####[facility] [address]prid[address]sw[address] [place] [address]Gerken KarenUrea nitrogen [Mass/Vol]16.0 mg/dLNormal6.4-19.3The [facility] Comment on above:Performed By: #### RAUL LIPA, CMP ####[facility] [address] [place] [phone] KarenUrea nitrogen/Creatinine [Mass ratio]17.0 mg/mgNoPremier HealthComment on above:Performed By: #### RAUL, LIPA, CMP ####[facility] [address] [place] [address] KarenPROTIMEon 09-09-9714AVN Coag (PPP) [Relative time]1.04 {INR}NormalThe [facility] EastComment on above: Performed By: #### PT, PTT ####[facility] [address] [place] [address] KarenPT Coag (PPP) [Time]PLEASE NOTE: NORMAL RANGE CHANGE 06-04-2014 DUE TO REAGENT [facility]ANGEPark[facility] Comment on above:Performed By: #### PT, PTT ####[facility] [address] [place] [address] KarenPT Coag (PPP) [Time]SEE BELOW NormalThe [facility] EastComment on above:Result Comment: DESIRED INR: 2.0 - 3.0 CONDITIONS NOT LISTED BELOW 2.5 - 3.5 FOR PROSTHETIC HEART VALVE REPLACEMENT 2.5 - 3.5 RECURRENT THROMBOSISPerformed By: #### PT, PTT ####[facility] [address] [place] [address] KarenPT Coag (PPP) [Time]10.8 sNormal9.0-11.6The [facility] EastComment on above:Performed By: #### PT, PTT ####[facility] [address]hc[address] [place] [address] KarenPTTon 01-59-4595pTHD Coag (Bld) [Time]27.2 hJaimpo94.3-36.2The [facility] EastComment on above:Performed By: #### PT, PTT ####[facility] [address] [place] [address] KarenaPTT Coag (Bld) [Time]PLEASE NOTE: NORMAL RANGE CHANGE 08-11-2015 DUE TO REAGENT LOT CHANGEParkview Health Bryan HospitalComment on above:Performed By: #### PT, PTT ####[facility] [address]xyrw[address] [place] [address]Gerken KarenUA RANDOM W/MICROSCOPICon [id number] CRYSTALSFEWParkview Health Bryan HospitalComment on above:Performed By: #### CBC #### [facility] Laboratory [address] [place] [address] Bakari KarenBacteria LM.HPF (Urine sed) [#/Area]TRACENormalNONE SEENEast [place] Regional HospitalComment on above:Performed By: #### CBC #### [facility] Laboratory [address] [place] [address] Bakari KarenBilirubin [Mass/Vol]LARGENormalNEGATIVEEast [place] Regional HospitalComment on above:Performed By: #### CBC #### [facility] Laboratory [address] [place] [address] Bakari KarenBLOODLARGENormalNEGATIVEEast [place] Regional HospitalComment on above: Performed By: #### CBC #### [facility] Laboratory [address] [place] [address] Bakari KarenCASTNONE SEENMossyrockNONE [facility]mount HospitalComment on above: Performed By: #### CBC #### [facility] Laboratory [address] [place] [address] Bakari KarenClarity (U)SL CLOUDYNormalEast [place] Regional HospitalComment on above: Performed By: #### CBC #### [facility] Laboratory [address] [place] [address] Bakari KarenColor (U)DK. ORANGENormalYRiverview Health InstituteComment on above:Performed By: #### CBC #### [facility] Laboratory [address] [place] [address] Bakari KarenCrystals LM Nom (Urine sed)SEENNormalNONE [facility] on above:Performed By: #### CBC #### [facility] Laboratory [address] [place] [address] Bakari KarenEpithelial cells LM.HPF (Urine sed) [#/Area]MODERATENormSouthern [place] Medical CenterComment on above:Performed By: #### CBC #### [facility] Laboratory [address] [place] [address] Bakari KarenGlucose [Mass/Vol]NegativeNormalNEGATIVESt. Elizabeth Hospital HospitalComment on above:Performed By: #### CBC #### [facility] Laboratory [address] [place] [address] Bakari KarenKetones Ql (U)NegativeNormalNEGATIVESt. Elizabeth Hospital HospitalComment on above:Performed By: #### CBC #### [facility] Laboratory [address] [place] [address] Bakari KarenMUCOUSTRACENormalNONE SEENEast [place] Regional HospitalComment on above: Performed By: #### CBC #### [facility] Laboratory [address] [place] [address] Bakari KarenNitrite Ql (U)NegativeNormalNEGATIVESt. Elizabeth Hospital HospitalComment on above:Performed By: #### CBC #### [facility] Laboratory [address] [place] [address] Bakari KarenpH (Bld)5.1Bwsqhf6-6DfbEast [place] Regional HospitalComment on above:Performed By: #### CBC #### [facility] Laboratory [address] [place] [address] Bakari KarenProtein [Mass/Vol]TRACENormSouthern [place] Medical CenterComment on above: Performed By: #### CBC #### [facility] [address] [place] [address] Bakari KarenRBC (Bld) [#/Vol]3-68Fzuepv8-2MgkEast [place] Regional HospitalComment on above: Performed By: #### CBC #### [facility] Laboratory [address] [place] [address] Bakari KarenSPEC GRAVITY>=1.582Zllczi9.005-<=1.025East [place] Regional HospitalComment on above:Performed By: #### CBC #### [facility] Laboratory [address] [place] [address] Bakari KarenUrobilinogen Qn (U)1.0 EU/dlNormUniversity Hospitals St. [facility] HospitalComment on above:Performed By: #### CBC #### [facility] [address] [place], [place] [address] Bakari CampbellWBC (Bld) [#/Vol]5-10NormalNONE SEENEast [place] Regional HospitalComment on above:Performed By: #### CBC #### [facility] [address] [place], [place] [address] Bakari CampbellWBC (Bld) [#/Vol]NegativeNormalNEGATIVEThe [facility] EastComment on above:Performed By: #### CBC #### [facility] [address] [place], [place] [address] Bakari CampbellUS SINGLE QUAD RT UPPERon [id number] SINGLE QUAD RT UPPER Ultrasound abdomen right [...] Electronically authenticated by: MELISSA TILLEY Date: 2020-01-09 08:29NoPremier HealthXR ABD FLAT UP_PA Leticia [id number] ABD FLAT UP_PA CHXR ABD FLAT UP_PA [...] Date: 2020-01-08 23:03NormalThe [facility] EastAMMONIAon 54-10-8428Wggnvfn (P) [Mass/Vol]ug/dLCritically low 10-30The [facility] EastComment on above:Performed By: #### AMM ####[facility] [address] [place], [place] [address]Rzhjmr KarenAMYLASE on 97-93-0179Khblmdb [Catalytic activity/Vol]41 U/GXnkdsr21-687Tjf [facility] EastComment on above:Performed By: #### KELSEA CARTER, CMP #### [facility] Laboratory [address] [place], [place] [address] Bakari KarenCBC AUTO DIFFon 64-14-6600Skxffcozu (Bld) [#/Vol]0.0 103/ulNormal 0.0-0.1The [facility] EastComment on above:Performed By: #### CBC #### [facility] Laboratory [address] [place], [place] [address] Bakari KarenBasophils/100 WBC (Bld)0.3 %Normal0.2-2.0The [facility] Comment on above:Performed By: #### CBC #### [facility] [address] [place], [place] [address] Bakari KarenEosinophils (Bld) [#/Vol]0.0 103/ulNormal0.0-0.7The [facility] EastComment on above:Performed By: #### CBC #### [facility] [address] [place], [place] [address] Bakari KarenEosinophils/100 WBC (Bld)0.3 %Critically low0.9-7.0The [facility] EastComment on above:Performed By: #### CBC #### [facility] Laboratory [address] [place], [place] [address] Bakari KarenErythrocyte distribution width (RBC) [Ratio]13.0 %Vyrwlg33.0-15.0The [facility] EastComment on above:Performed By: #### CBC #### [facility] Laboratory [address] [place] [address] Bakari KarenHematocrit (Bld) [Volume fraction]44.5 %Faiafv67.0-48.0The [facility] EastComment on above:Performed By: #### CBC #### [facility] Laboratory [address] [place] [address] Bakari KarenHemoglobin (Bld) [Mass/Vol]14.5 g/dVGmgpsu06.0-16.0The [facility] EastComment on above:Performed By: #### CBC #### [facility] Laboratory [address] [place] [address] Bakari KarenIG #0.28 10e3/ulCritically high0.00-0.03The [facility] EastComment on above:Performed By: #### CBC #### [facility] [address] [place] [address] Bakari KarenIG %1.8 %Critically high0.0-0.5The [facility] EastComment on above:Performed By: #### CBC #### [facility] Laboratory [address] [place] [address] Bakari KarenLymphocytes (Bld) [#/Vol]11.9 103/ulCritically high1.2-3.8The [facility] EastComment on above:Performed By: #### CBC #### [facility] Laboratory [address] [place] [address] Bakari KarenLymphocytes/100 WBC (Bld)75.1 %Critically high20.5-60.0The [facility] EastComment on above:Performed By: #### CBC #### [facility] [address] [place] [address] Bakari KarenMANUAL DIFF REQNONormalThe [facility] EastComment on above: Performed By: #### CBC #### [facility] Laboratory [address] [place] [address] Bakari KarenMCH (RBC) [Entitic mass]27.5 jfNwmmlm14.7-34.0The [facility] Comment on above:Performed By: #### CBC #### [facility] Laboratory [address] [place] [address] Bakari KarenMCHC (RBC) [Mass/Vol]32.6 g/tAQhrfas73.9-35.2The [facility] Comment on above:Performed By: #### CBC #### [facility] Laboratory [address] [place] [address] Bakari KarenMCV (RBC) [Entitic vol]84.4 xZUwczsu57.0-99.0The [facility] Comment on above:Performed By: #### CBC #### [facility] Laboratory [address] [place] [address] Bakari KarenMonocytes (Bld) [#/Vol]1.1 103/ulCritically high0.3-0.8The [facility] EastComment on above:Performed By: #### CBC #### [facility] Laboratory [address] [place] [address] Bakari KarenMonocytes/100 WBC (Bld)6.6 %Normal1.7-12.0The [facility] Comment on above:Performed By: #### CBC #### [facility] Laboratory [address] [place] [address] Bakari KarenNeutrophils (Bld) [#/Vol]2.5 103/ulNormal1.4-6.5The [facility] EastComment on above:Performed By: #### CBC #### [facility] [address] [place] [address] Bakari KarenNeutrophils/100 WBC (Bld)15.9 %Critically low43.0-75.0The [facility] EastComment on above:Performed By: #### CBC #### [facility] [address] [place] [address] Bakari KarenPlatelet mean volume (Bld) [Entitic vol]11.6 fLNormal9.5-13.5The [facility] EastComment on above:Performed By: #### CBC #### [facility] Laboratory [address] [place] [address] Bakari KarenPlatelets (Bld) [#/Vol]163 103/xqQmjllc885-485Vie [facility] Comment on above:Performed By: #### CBC #### [facility] Laboratory [address] [place] [address] Bakari KarenRBC (Bld) [#/Vol]5.27 106/ulNormal4.20-5.40The [facility] Comment on above:Performed By: #### CBC #### [facility] Laboratory [address] [place] [address] Bakari KarenWBC (Bld) [#/Vol]15.9 103/ulCritically high4.0-11.0The [facility] EastComment on above:Performed By: #### CBC #### [facility] Laboratory [address] [place] [address] Bakari KarenDIFFERENTIAL MANUALon [id number] LYMPH #1.90 103/ulNormalThe [facility] Junction HospitalComment on above:Performed By: #### DIFF, PERSMR #### [facility] Laboratory [address] [place] [address] Bakari KarenATYPICAL LYMPH %12 %NormalEast [place] Regional HospitalComment on above: Performed By: #### DIFF, PERSMR #### [facility] [address] [place] [address] Bakari KarenBAND #0.3 103/ulNormal0.0-0.3The [facility] EastComment on above: Performed By: #### DIFF, PERSMR #### [facility] Laboratory [address] [place] [address] Bakari KarenBAND %2 %Normal0-5The [facility] EastComment on above:Performed By: #### DIFF, PERSMR #### [facility] [address] [place] [address] Bakari KarenBASOM #0.00 103/ulNormal0.00-0.10The [facility] EastComment on above:Performed By: #### DIFF, PERSMR #### [facility] [address] [place] [address] Bakari KarenBASOM %0.0 %Critically low0.2-2.0The [facility] EastComment on above:Performed By: #### DIFF, PERSMR #### [facility] Laboratory [address] [place] [address] Bakari KarenBLAST #NormalThe [facility] HospitalComment on above:Performed By: #### DIFF, PERSMR #### [facility] [address] [place] [address] Bakari KarenBLAST %NormalThe [facility] EastComment on above:Performed By: #### DIFF, PERSMR #### [facility] [address] [place] [address] Bakari KarenCORRECTED WBCNormal4.0-11.0The [facility] EastComment on above: Performed By: #### DIFF, PERSMR #### [facility] [address] [place] [address] Bakari KarenEosinophils (Bld) [#/Vol]0.00 103/ulNormal0.00-0.70The [facility] EastComment on above:Performed By: #### DIFF, PERSMR #### [facility] [address] [place] [address] Bakari KarenEosinophils/100 WBC (Bld)0.0 %Critically low0.9-7.0The [facility] EastComment on above:Performed By: #### DIFF, PERSMR #### [facility] [address] [place] [address] Bakari KarenLYMPHM #9.01 103/ulCritically high1.20-3.80The [facility] Comment on above:Performed By: #### DIFF, PERSMR #### [facility] Laboratory [address] [place] [address] Bakari KarenLYMPHM%57.0 %Pemnli55.5-60.0The [facility] EastComment on above: Performed By: #### DIFF, PERSMR #### [facility] Laboratory [address] [place] [address] Bakari KarenMETAMYELOCYTE #NormalThe [facility] HospitalComment on above:Performed By: #### DIFF, PERSMR #### [facility] [address] [place] [address] Bakari KarenMETAMYELOCYTE %NormalThe [facility] HospitalComment on above:Performed By: #### DIFF, PERSMR #### [facility] [address] [place] [address] Bakari KarenMONOM#1.26 103/ulCritically high0.30-0.80The [facility] Comment on above:Performed By: #### DIFF, PERSMR #### [facility] [address] [place] [address] Bakari KarenMONOM%8.0 %Normal1.7-12.0The [facility] EastComment on above: Performed By: #### DIFF, PERSMR #### [facility] [address] [place] [address] Bakari KarenMYELOCYTE #NormalThe [facility] EastComment on above:Performed By: #### DIFF, PERSMR #### [facility] [address] [place] [address] Bakari KarenMYELOCYTE %NormalThe [facility] EastComment on above:Performed By: #### DIFF, PERSMR #### [facility] [address] [place] [address] Bakari KarenNRBCNormalThe [facility] EastComment on above:Performed By: #### DIFF, PERSMR #### [facility] [address] [place] [address] Bakari KarenSEG #3.32 103/ulNormal1.40-6.50The [facility] EastComment on above:Performed By: #### DIFF, PERSMR #### [facility] Laboratory [address] [place] [address] Bakari KarenSegmented neutrophils/100 WBC (Bld)21.0 %Critically low43.0-75.0The [facility] EastComment on above:Performed By: #### DIFF, PERSMR #### [facility] [address] [place] [address] Bakari KarenWBC (Bld) [#/Vol]15.8 103/ulCritically high4.0-11.0[facility] on above:Performed By: #### DIFF, PERSMR #### [facility] Laboratory [address] [place] [address] Bakari HesterenH PYLORI ANTIBODYon 01-08-2020H PYLORINegativeNormalNEGATIVEThe [facility] EastComhenry [facility] on above:Performed By: #### HPYL #### [facility] Laboratory [address] [place] [address] Bakari KarenLACTATE/LACTIC ACIDon [id number] [Moles/Vol]1.7 mmol/LNormal 0.7-2.0[facility] on above:Performed By: #### LACT #### [facility] [address] [place] [address] Bakari KarenLIPASEon 39-51-2250Tcuiio [Catalytic activity/Vol]102.0 U/LNormal 23.0-300.0[facility] on above:Performed By: #### RAUL, LIPA, CMP #### [facility] [address] [place] [address] Bakari Eren, CVD-19 ([facility])on 43-59-1746KFE FROM REF LAB01/10/20[facility] HospitalComhenry [facility] on above:Performed By: #### CBC #### [facility] [address] [place] [address] Bakari HesterZenyT TO REF LAB01/09/20[facility] HospitalComhenry [facility] on above: Performed By: #### CBC #### [facility] [address] [place] [address] Bakari KarenPERIPHERAL SMEARon 80-51-8549Zknmecbqlie Cyto stain Nom (Cvx/Vag) [ID]DR. WALKER ALEGREParkview Health Bryan HospitalComhenry [facility] on above:Result Comment: LEUKOCYTOSIS WITH REACTIVE LYMPHOCYTOSIS. RULE OUT RAYMUNDO ORELLANA VIRUS OR OTHER VIRAL PROCESSPerformed By: #### DIFF, PERSMR #### [facility] Laboratory [address] [place] [address] Bakari KarenPROF 14(COMP METB)on [id number] [Mass/Vol]3.9 g/dLNormal 3.5-5.0The [facility] EastComment on above:Performed By: #### RAUL, LIPA, CMP #### [facility] Laboratory [address] [place] [address] Bakari KarenAlbumin/Globulin [Mass ratio]1.0 {ratio}NormalThe [facility] Comment on above:Performed By: #### RAUL, LIPA, CMP #### [facility] [address] [place] [address] Bakari KarenALP [Catalytic activity/Vol]443 U/LCritically ybum68-840Rxf [facility] EastComment on above:Performed By: #### RAUL, LIPA, CMP #### [facility] Laboratory [address] [place] [address] Bakari KarenALT [Catalytic activity/Vol]241 U/LCritically high9-52The [facility] EastComment on above:Performed By: #### RAUL, LIPA, CMP #### [facility] [address] [place] [address] Bakari KarenAnion gap [Moles/Vol]14.2 mmol/LNormalThe [facility] EastComment on above:Performed By: #### RAUL, LIPA, CMP #### [facility] [address] [place] [address] Bakari KarenAST [Catalytic activity/Vol]155 U/LCritically lidc15-44Buh [facility] EastComment on above:Performed By: #### RAUL, LIPA, CMP #### [facility] Laboratory [address] [place] [address] Bakari KarenBilirubin Ql (U)6.4 mg/dLCritically high0.2-1.3The [facility] Comment on above:Performed By: #### RAUL, LIPA, CMP #### [facility] [address] [place] [address] Bakari KarenCalcium [Mass/Vol]9.6 mg/dLNormal8.4-10.2The [facility] Comment on above:Performed By: #### RAUL, LIPA, CMP #### [facility] [address] [place] [address] Bakari KarenChloride [Moles/Vol]98 mmol/KFwwfgk40-691OtjEast [place] Regional Hospital Comment on above:Performed By: #### RAUL, LIPA, CMP #### [facility] [address] [place] [address] Bakari KarenCO2 [Moles/Vol]27.1 mmol/SCprbzu99.0-30.0[facility] [place] [facility] Comment on above:Performed By: #### RAUL, LIPA, CMP #### [facility] [address] [place] [address] Bakari KarenCreatinine [Mass/Vol]1.10 mg/dLCritically high0.52-1.04[facility] [place] [facility] HospitalComment on above:Performed By: #### RAUL, LIPA, CMP #### [facility] [address] [place] [address] Bakari KarenEGFR-AF NEW ZEALANDER>60Normal>=60The [facility] EastComment on above: Performed By: #### RAUL, LIPA, CMP #### [facility] [address] [place] [address] Bakari KarenEGFR-NON AF NEW ZEALANDER>60Normal>=60[facility] [place] [facility] HospitalComment on above:Performed By: #### RAUL, LIPA, CMP #### [facility] [address] [place] [address] Bakari KarenGlobulin (S) [Mass/Vol]3.9 g/dLNormalThe [facility] EastComment on above:Performed By: #### RAUL, LIPA, CMP #### [facility] [address] [place] [address] Bakari KarenGlucose [Mass/Vol]93 mg/hWZukawc84-263SriEast [place] Regional HospitalComment on above:Performed By: #### RAUL, LIPA, CMP #### [facility] Laboratory [address] [place] [address] Bakari KarenPotassium [Moles/Vol]3.3 mmol/LCritically low3.4-5.0The [facility] EastComment on above:Performed By: #### KELSEA CARTER, CMP #### [facility] [address] [address] Bakari KarenProtein [Mass/Vol]7.8 g/dLNormal6.1-8.2The [facility] EastComment on above:Performed By: #### KELSEA CARTER, CMP #### [facility] [address] [address] Bakari KarenSodium [Moles/Vol]136 mmol/LCritically iqh198-359Dxe [facility] EastComment on above:Performed By: #### KELSEA CARTER, CMP #### [facility] [address] [place] [address] Bakari KarenUrea nitrogen [Mass/Vol]16.0 mg/dLNormal6.4-19.3The [facility] EastComment on above:Performed By: #### KELSEA CARTER, CMP #### [facility] [address] [place] [address] Bakari KarenUrea nitrogen/Creatinine [Mass ratio]14.5 mg/mgNormalThe [facility] EastComment on above:Performed By: #### KELSEA CARTER, CMP #### [facility] [address] [place] [address] Bakari KarenUS EXT NON VASC LIMITED RTon [id number] EXT NON VASC LIMITED RT Patient: BOGDAN KEEN Exam Date: 02/20/2019 : 2000 Gender:F Ordering : DR ALEXANDREA FOY . Admission #: [id number] Family : BROOKE DELA CRUZ IMMIGRATION CASE WORKER Order #: [id number] CLICK HERE TO VIEW EXAM RADIOLOGY REPORT [...] by: Grey Rizzo M.D. on 02/20/2019 at 14:42[facility] HospitalUS VENOUS DOPPLER R Leanna [id number] VENOUS DOPPLER R ARMPatient: BOGDAN KEEN Exam Date: 02/20/2019 : 2000 Gender:F Ordering : DR ALEXANDREA FOY . Admission #: [id number] Family : BROOKE DELA CRUZ IMMIGRATION CASE WORKER Order #: [id number] CLICK HERE TO VIEW EXAM RADIOLOGY REPORT [...] by: Grey Rizzo M.D. on 02/20/2019 at 14:46[facility] HospitalBilirubin, Directon 11-88-8926Rerdvzufi.conjugated mass conc0.7 mg/dL High0 - 0.4 mg/dLOhioHealthInterpretation and review of laboratory results AbnormalOhioHealthCBCon 47-79-2997Qelrhaqxosr distribution width Entitic volume (RBC)13.0 %11.6 - 14.8 %OhioHealthHematocrit Volume Fraction (Bld)34.0 %Low36 - 46 %[facility] WestHemoglobin mass conc (Bld)10.7 g/dLLow12 - 16 g/dLRegency Hospital [facility] West Interpretation and review of laboratory resultsAbnormalOSalem City HospitalH Entitic mass (RBC)27.9 pg25 - 35 pgOhioMcCullough-Hyde Memorial HospitalHC mass conc (RBC)31.5 g/dL31 - 37 g/dL [facility] Entitic volume (RBC)88.8 fL78 - 102 fLOhioHealthNucleated RBC #/vol (Bld)0.00 10*3/uLOhioHealthNucleated RBC/100 WBC Ratio (Bld)0.0 % [facility] WestPlatelet mean volume Entitic volume (Bld)11.2 fL9 - 15.5 fLOhioHealth Platelets #/vol (Bld)180 10*3/uLOhioHealthRBC #/vol (Bld)3.83 10*6/uLLow OhioHealthWBC #/vol (Bld)8.72 10*3/uLOhioHealthComprehensive Metabolic Panelon 94-02-1964Dfzodew mass conc3.4 g/dL3.2 - 4.5 g/dLOhioHealthALP enzyme act/vtu536 U/L40 - 140 U/LOhioHealthALT enzyme act/vol79 U/LHigh0 - 40 U/LOhioHealthAnion gap molar conc19 mmol/L10 - 20 mmol/LOhioHealthAST enzyme act/vol50 U/LHigh0 - 45 U/LOhioHealthBilirubin mass conc1.5 mg/dLHigh0 - 1.3 mg/dLOhioHealthCalcium mass conc9.0 mg/dL8.4 - 10.2 mg/dLOhioHealthChloride molar nmzi730 mmol/L98 - 108 mmol/LOhioHealthCreatinine mass conc0.82 mg/dL0.5 - 1 mg/dLMeioHealth GFR/1.73 sq M predicted among non-blacks MDRD vol rate/area (S/P/Bld)The eGFR should be used for monitoring renal function only and not for medication dosing. [facility] WestGFR/1.73 sq M.predicted CKD-EPI vol rate/area (S/P/Bld)105>=60 mL/min/1.73 h1FpsaYsopapRbhvezk mass hpbc806 mg/xPCree67 - 99 mg/dLOhioHealth HCO3 molar conc22 mmol/L21 - 32 mmol/LOhioHealthInterpretation and review of laboratory resultsAbnormalOhioHealthPotassium molar conc3.7 mmol/L3.5 - 5.1 mmol/LOhioHealthProtein mass conc5.7 g/dLLow6 - 8 g/dLOhioHealthSodium molar yars618 mmol/L135 - 145 mmol/LOhioHealthUrea nitrogen mass conc7 mg/dLLow8 - 25 mg/dLOhioHealthUrea nitrogen/Creatinine mass ratio8.5 mg/mgLowOhioHealth Bilirubin, Directon 83-09-8502Jaxilmhqn.conjugated mass conc1.2 mg/dLHigh0 - 0.4 mg/dLOhioHealthInterpretation and review of laboratory resultsAbnormalOhioHealth CBCon 37-73-6360Ffbmsklvypx distribution width Entitic volume (RBC)12.8 %11.6 - 14.8 %[facility] WestHematocrit Volume Fraction (Bld)33.3 %Low36 - 46 %[facility] Hemoglobin mass conc (Bld)10.9 g/dLLow12 - 16 g/dLOhioHealthInterpretation and review of laboratory resultsAbnormalOhiPRealthMCH Entitic mass (RBC)27.9 pg25 - 35 pgOhioHealthMCHC mass conc (RBC)32.7 g/dL31 - 37 g/dLOhioHealthMCV Entitic volume (RBC)85.4 fL78 - 102 fLOhioHealthNucleated RBC #/vol (Bld)0.00 10*3/uL OhioKettering Memorial HospitalNucleated RBC/100 WBC Ratio (Bld)0.0 %[facility] WestPlatelet mean volume Entitic volume (Bld)11.8 fL9 - 15.5 fLOhioHealthPlatelets #/vol (Bld)225 10*3/uL OhioHealthRBC #/vol (Bld)3.90 10*6/uLLowOhioHealthWBC #/vol (Bld)5.96 10*3/uL [facility] WestComprehensive Metabolic Panelon 67-60-8311Xfpdcdy mass conc3.9 g/dL3.2 - 4.5 g/dLOhioHealthALP enzyme act/bkg295 U/L40 - 140 U/LOhioHealthALT enzyme act/vol84 U/LHigh0 - 40 U/LOhioHealthAnion gap molar conc17 mmol/L10 - 20 mmol/L OhioHealthAST enzyme act/vol39 U/L0 - 45 U/LOhioHealthBilirubin mass conc2.3 mg/dLHigh0 - 1.3 mg/dLOhioHealthCalcium mass conc9.2 mg/dL8.4 - 10.2 mg/dL OhioHealthChloride molar iksk532 mmol/L98 - 108 mmol/LOhioHealthCreatinine mass conc0.84 mg/dL0.5 - 1 mg/dLOhioHealthGFR/1.73 sq M predicted among non-blacks MDRD vol rate/area (S/P/Bld)The eGFR should be used for monitoring renal function only and not for medication dosing.OhioHealthGFR/1.73 sq M.predicted CKD-EPI vol rate/area (S/P/Bld)102>=60 mL/min/1.73 x4SrzmLihqdlQzzpzlu mass conc 76 mg/dL65 - 99 mg/dLOhioHealthHCO3 molar conc24 mmol/L21 - 32 mmol/LOhioHealth Interpretation and review of laboratory resultsAbnormalOhioHealthPotassium molar conc4.0 mmol/L3.5 - 5.1 mmol/LOhioHealthProtein mass conc5.9 g/dLLow6 - 8 g/dL OhioHealthSodium molar hbvk109 mmol/L135 - 145 mmol/LOhioHealthUrea nitrogen mass conc8 mg/dL8 - 25 mg/dLOhioHealthUrea nitrogen/Creatinine mass ratio9.5 mg/mgLowOhioHealthLipaseon 84-51-2352Ebqrenykprxwqj and review of laboratory resultsAbnormalOhioHealthLipase enzyme act/npd283 U/LHigh15 - 65 U/LOhioHealth hCG, Serum, Qualitativeon 11-81-1158XPM.beta subunit ( test) QlNegative NegativeOhioHealthInterpretation and review of laboratory resultsNormal OhioHealthNegative: The result is less than or equal to 5 mIU/mL of HCG. [facility] WestBilirubin, Directon 75-94-7548Nigyvobqm.conjugated mass conc3.8 mg/dL High0 - 0.4 mg/dLOhioHealthInterpretation and review of laboratory results AbnormalOhioHealthCBCon 69-01-3810Dezxerqkqiu distribution width Entitic volume (RBC)13.0 %11.6 - 14.8 %[facility] WestHematocrit Volume Fraction (Bld)35.0 %Low36 - 46 %[facility] WestHemoglobin mass conc (Bld)11.2 g/dLLow12 - 16 g/dLMeioKettering Memorial Hospital Interpretation and review of laboratory resultsAbnormalOhiShriners Hospitals for ChildrenH Entitic mass (RBC)28.2 pg25 - 35 pgRegency Hospital Cleveland WestMCHC mass conc (RBC)32.0 g/dL31 - 37 g/dL [facility] HospitalV Entitic volume (RBC)88.2 fL78 - 102 fLOhioHealthNucleated RBC #/vol (Bld)0.00 10*3/uLOhioHealthNucleated RBC/100 WBC Ratio (Bld)0.0 % [facility] WestPlatelet mean volume Entitic volume (Bld)11.5 fL9 - 15.5 fLOhioHealth Platelets #/vol (Bld)213 10*3/uLOhioHealthRBC #/vol (Bld)3.97 10*6/uLLow OhioHealthWBC #/vol (Bld)4.93 10*3/uLOhioHealthCT Abdomen Pelvis With IV Contrast Onlyon 58-56-9483YBMEBTGPOPN: CT OF THE ABDOMEN AND PELVIS WITH [...] anterolisthesis of L5 on S1. [facility], [facility] [...] chronic low back pain in some patients. [facility] SERVICESSogou Workstation ID: [id number]. Mild intra- and extrahepatic ductal dilatation, as [...] chronic low back pain in some patients. [facility]ESS[facility] Workstation ID: [id number] Metabolic Panelon 12-23-2018 Albumin mass conc3.7 g/dL3.2 - 4.5 g/dLOhioHealthALP enzyme act/kif719 U/L40 - 140 U/LOhioHealthALT enzyme act/vol93 U/LHigh0 - 40 U/LOhioHealthAnion gap molar conc16 mmol/L10 - 20 mmol/LOhioHealthAST enzyme act/vol37 U/L0 - 45 U/L OhioHealthBilirubin mass conc5.1 mg/dLHigh0 - 1.3 mg/dLOhioHealthCalcium mass conc9.2 mg/dL8.4 - 10.2 mg/dLOhioHealthChloride molar umgi277 mmol/L98 - 108 mmol/LOhioHealthCreatinine mass conc0.79 mg/dL0.5 - 1 mg/dLOhioHealthGFR/1.73 sq M predicted among non-blacks MDRD vol rate/area (S/P/Bld)The eGFR should be used for monitoring renal function only and not for medication dosing.[facility] GFR/1.73 sq M.predicted CKD-EPI vol rate/area (S/P/Bld)110>=60 mL/min/1.73 m2 OhioHealthGlucose mass conc69 mg/dL65 - 99 mg/dLOhioHealthHCO3 molar conc24 mmol/L21 - 32 mmol/LOhioHealthInterpretation and review of laboratory results AbnormalOhioHealthPotassium molar conc4.4 mmol/L3.5 - 5.1 mmol/LOhioHealth Protein mass conc6.0 g/dL6 - 8 g/dLOhioHealthSodium molar dkde703 mmol/L135 - 145 mmol/LOhioHealthUrea nitrogen mass conc9 mg/dL8 - 25 mg/dLOhioHealthUrea nitrogen/Creatinine mass ratio11.4 mg/mgOhioHealthLipaseon 12-23-2018 Interpretation and review of laboratory resultsNormalOhioHealthLipase enzyme act/vol16 U/L15 - 65 U/LOhioHealthXR ERCPon 70-17-9547Qfofjoshjyas ERCP images. Please refer to the procedure report for further details. Workstation ID: [id number], Rad In [facility] [...] procedure report for further details. Workstation ID: [id number]: SPOT IMAGE(S) FROM AN ERCP COMPARISON: None [...] service under the supervision of OSMIN BATISTA .Spot views are presented for interpretation. Contrast is identified in the extrahepatic bile ducts.No intraluminal filling defects or strictures are identified in the common bile duct, common hepatic duct or visualized portions of the intrahepatic bile ducts. No contrast extravasation is identified. [facility] ERCPEXAMINATION: SPOT IMAGE(S) FROM AN ERCP COMPARISON: [...] HUDSON on SunDec 23, 2018 1:47:37 PM EDTNoSamaritan Medical CenterComment on above:Order Comment: Reason for exam?:stones Injury/Trauma or Illness?:Illness/Other How long have you had these symptoms (acute/chronic)?:Acute Type of Exam?:Ongoing Additional signs and symptoms?:none Fluoro time in minutes:1.4 Fluoro dose in mGy?:19.26XR FLUOROSCOPY TIMEon 08-88-9776AC FLUOROSCOPY TIMEThis is an auto finalized result. Please refer to patient chart for further information. further information. further information.[facility] GainesvilleComment on above:Order Comment: Reason for exam?:intra op Injury/Trauma or Illness?:Illness/Other How long have you had these symptoms (acute/chronic)?:Acute Type of Exam?:Subsequent/Follow-up Additional signs and symptoms?:stones Fluoro time in minutes:1.4 Fluoro dose in mGy?:19.26XR Fluoroscopy Timeon 89-75-1320Nnww is an auto finalized result. Please refer to patient chart for further information. OhioHealthAcetaminophen Levelon 18-24-6614Hrpzzhjgbcwlu mass conc<5.0OhioHealth Interpretation and review of laboratory resultsNormalOhioHealthBasic Metabolic Panelon 51-06-5493Tqtll gap molar conc17 mmol/L10 - 20 mmol/LOhioHealthCalcium mass conc9.3 mg/dL8.4 - 10.2 mg/dLOhioHealthChloride molar npmg844 mmol/L98 - 108 mmol/LOhioHealthCreatinine mass conc0.87 mg/dL0.5 - 1 mg/dLIndianaHealth GFR/1.73 sq M predicted among non-blacks MDRD vol rate/area (S/P/Bld)The eGFR should be used for monitoring renal function only and not for medication dosing. [facility] WestGFR/1.73 sq M.predicted CKD-EPI vol rate/area (S/P/Bld)98>=60 mL/min/1.73 w1DvmgUfjfgvOvuukmz mass conc86 mg/dL65 - 99 mg/dLOhioHealthHCO3 molar conc23 mmol/L21 - 32 mmol/LOhioHealthInterpretation and review of laboratory resultsNormalOWayne HealthCare Main CampusealthPotassium molar conc3.9 mmol/L3.5 - 5.1 mmol/L OhioKettering Memorial HospitalSodium molar ujoc005 mmol/L135 - 145 mmol/LOhioHealthUrea nitrogen mass conc13 mg/dL8 - 25 mg/dLMeioHealthUrea nitrogen/Creatinine mass ratio14.9 mg/mgOhioHealthCBCon 29-95-8695Ggzmqalapjg distribution width Entitic volume (RBC)12.9 %11.6 - 14.8 %[facility] WestHematocrit Volume Fraction (Bld)35.2 %Low36 - 46 %[facility] WestHemoglobin mass conc (Bld)11.3 g/dLLow12 - 16 g/dLRegency Hospital [facility] West Interpretation and review of laboratory resultsAbnormalOSt. John of God HospitalMCH Entitic mass (RBC)27.9 pg25 - 35 pgOhioHealthMCHC mass conc (RBC)32.1 g/dL31 - 37 g/dL [facility] HospitalV Entitic volume (RBC)86.9 fL78 - 102 fLOhioHealthNucleated RBC #/vol (Bld)0.00 10*3/uLOhioHealthNucleated RBC/100 WBC Ratio (Bld)0.0 % [facility] WestPlatelet mean volume Entitic volume (Bld)11.0 fL9 - 15.5 fLOhioHealth Platelets #/vol (Bld)233 10*3/uLOhioHealthRBC #/vol (Bld)4.05 10*6/uLLow OhioHealthWBC #/vol (Bld)6.98 10*3/uLOhioHealthCT ABDOMEN PELVIS WITH IV CONTRAST ONLYon 24-30-3834DJ ABDOMEN PELVIS WITH IV CONTRAST ONLYEXAMINATION: CT [...] chronic low back pain in some patients. [facility] Workstation ID: [id number] Dictated by: LENNY VARGAS on SunDec 22, 2018 12:32:41 AM EDT Transcribed by: LOBO LIM on SunDec 22, 2018 12:58:50 AM EDT Finalized by: LENNY VARGAS on SunDec 23, 2018 3:02:12 AM EDTNortheast Georgia Medical Center GainesvilleComment on above:Order Comment: Reason for exam?:Epigastric, RUQ, RLQ pain Injury/Trauma or Illness?:Illness/Other How long have you had these symptoms (acute/chronic)?:Acute Type of Exam?:Initial Additional signs and symptoms?:vomitCalcium, Ionizedon 54-83-5924Ddjnvpg.ionized mass conc5.2 mg/dL4.5 - 5.3 mg/dLOhioHealthInterpretation and review of laboratory resultsNormalOhioHealthHEPATITIS PANEL, ACUTEon 54-66-5071NYO IgM Ql (S)NegativeNegativeOhioHealthHBV core IgM Ql (S)NegativeNegativeOhioHealthHBV surface Ag Ql (S)NegativeNegativeOhioHealthHCV Ab Ql (S)NegativeNegative OhioHealthInterpretation and review of laboratory resultsNormalOhioHealthTest performed using Colin MIRIAM immunoassay systemOhioHealthHepatic Function Panelon 10-72-9939Yaavfpo mass conc4.1 g/dL3.2 - 4.5 g/dLOhioHealthALP enzyme act/fzi446 U/L40 - 140 U/LOhioHealthALT enzyme act/pfr552 U/LHigh0 - 40 U/LOhioHealthAST enzyme act/vol72 U/LHigh0 - 45 U/LOhioHealthBilirubin mass conc4.8 mg/dLHigh0 - 1.3 mg/dLOhioHealthBilirubin.conjugated mass conc4.0 mg/dLHigh0 - 0.4 mg/dL OhioHealthInterpretation and review of laboratory resultsAbnormalOhioHealth Protein mass conc6.4 g/dL6 - 8 g/dLOhioHealthMagnesium Levelon 12-22-2018 Magnesium mass conc2.0 mg/dL1.6 - 2.4 mg/dLOhioHealthOtheron 12-22-2018 Interpretation and review of laboratory resultsNormalOhioHealthPhosphoruson 75-00-9964Nrzqnowpu mass conc4.3 mg/dL2.7 - 4.5 mg/dLOhioHealthURINALYSISon 70-49-9730Ocoukndt Auto Ql (U)None SeenNone Seen /hpfOhioHealthBilirubin Ql [...] are present they are quantified by microscopic examination.[facility] ABDOMEN LIMITED STUDYon 71-08-6363VV ABDOMEN LIMITED STUDYEXAMINATION: RIGHT UPPER QUADRANT ULTRASOUND [...] ID: [id number] Dictated by: EMEKA CHAN on Watkins Dec 22, 2018 12:13:12 AM EDT Transcribed by: EMEKA CHAN on Watkins Dec 22, 2018 12:13:12 AM EDT Finalized by: EMEKA CHAN on Watkins Dec 22, 2018 12:13:12 AM EDTNortheast Georgia Medical Center GainesvilleComment on above:Order Comment: US Gallbladder Reason for exam?:abd pain Injury/Trauma or Illness?:Illness/Other How long have you had these symptoms (acute/chronic)?:Acute History of cancer?:no Surgeries, chemotherapy, or radiation?:no Type of Exam?:Initial Additional signs and symptoms?:none1. Common bile duct is dilated with some intrahepatic duct dilatation. 2. Cholelithiasis without evidence of acute cholecystitis. Workstation ID: [id number], Rad In [facility] - 12/22/2018 12:16 AM EDT EXAMINATION: RIGHT [...] without evidence of acute cholecystitis. Workstation ID: [id number]: RIGHT UPPER QUADRANT ULTRASOUND 12/21/2018 11:54 pm [...] evidence of right upper quadrant ascites.OhioHealthBilirubin, Directon 83-10-6738Tvoludpnj.conjugated mass conc 4.4 mg/dLHigh0 - 0.4 mg/dLOhioHealthInterpretation and review of laboratory resultsAbnormalOSt. John of God HospitalCBC WITH AUTO DIFFERENTIALon 28-22-3057Kwmktvprs #/vol (Bld)0.05 10*3/uLOhioHealthBasophils/100 WBC (Bld)0.6 %OhioKettering Memorial HospitalEosinophils #/vol (Bld)0.13 10*3/uLOhioHealthEosinophils/100 WBC (Bld)1.7 %[facility] Erythrocyte distribution width Entitic volume (RBC)12.9 %11.6 - 14.8 %[facility] Hematocrit Volume Fraction (Bld)40.0 %36 - 46 %[facility] WestHemoglobin mass conc (Bld)12.7 g/dL12 - 16 g/dLOhioHealthImmature granulocytes #/vol (Bld)0.02 10*3/uLOhioHealthImmature granulocytes/100 WBC (Bld)0.30 %OhioHealthComment on above:The IG parameter is the percentage of metamyelocytes, myelocytes, and promyelocytes.Lymphocytes #/vol (Bld)2.58 10*3/uLOhioHealthLymphocytes/100 WBC (Bld)32.8 %[facility] HospitalH Entitic mass (RBC)27.4 pg25 - 35 pgOhioHealthMCHC mass conc (RBC)31.8 g/dL31 - 37 g/dLCleveland Clinic Marymount HospitalV Entitic volume (RBC)86.4 fL78 - 102 fLOhioHealthMonocytes #/vol (Bld)0.45 10*3/uLOhioHealthMonocytes/100 WBC (Bld) 5.7 %OhioKettering Memorial HospitalNeutrophils #/vol (Bld)4.63 10*3/uLOhioHealthNeutrophils/100 WBC (Bld)58.9 %OhioHealthNucleated RBC #/vol (Bld)0.00 10*3/uLOhioHealthNucleated RBC/100 WBC Ratio (Bld)0.0 %OhioHealthPlatelet mean volume Entitic volume (Bld) 10.8 fL9 - 15.5 fLOhioHealthPlatelets #/vol (Bld)272 10*3/uLOhioHealthRBC #/vol (Bld)4.63 10*6/uLOhioHealthWBC #/vol (Bld)7.86 10*3/uLOhioHealthComprehensive Metabolic Panelon 89-34-1491Nfarsoq mass conc4.7 g/dLHigh3.2 - 4.5 g/dL OhioHealthALP enzyme act/xdn692 U/LHigh40 - 140 U/LOhioHealthALT enzyme act/vol 164 U/LHigh0 - 40 U/LOhioHealthAnion gap molar conc18 mmol/L10 - 20 mmol/L OhioHealthAST enzyme act/vol97 U/LHigh0 - 45 U/LOhioHealthBilirubin mass conc5.4 mg/dLHigh0 - 1.3 mg/dLOhioHealthCalcium mass conc10.1 mg/dL8.4 - 10.2 mg/dL OhioHealthChloride molar oubv162 mmol/L98 - 108 mmol/LOhioHealthCreatinine mass conc1.02 mg/dLHigh0.5 - 1 mg/dLOhioHealthGFR/1.73 sq M predicted among non- blacks MDRD vol rate/area (S/P/Bld)The eGFR should be used for monitoring renal function only and not for medication dosing.OhioHealthGFR/1.73 sq M.predicted CKD-EPI vol rate/area (S/P/Bld)80>=60 mL/min/1.73 v9DbknBmrdsgUjwatma mass conc 91 mg/dL65 - 99 mg/dLOhioHealthHCO3 molar conc26 mmol/L21 - 32 mmol/LOhioHealth Interpretation and review of laboratory resultsAbnormalOhioHealthPotassium molar conc3.7 mmol/L3.5 - 5.1 mmol/LOhioHealthProtein mass conc7.5 g/dL6 - 8 g/dL OhioHealthSodium molar jkcc133 mmol/L135 - 145 mmol/LOhioHealthUrea nitrogen mass conc15 mg/dL8 - 25 mg/dLOhioHealthUrea nitrogen/Creatinine mass ratio14.7 mg/mgOhioHealthLipaseon 25-21-1509Iurgomjpmucjtw and review of laboratory resultsNormalOhioHealthLipase enzyme act/vol40 U/L15 - 65 U/LOhioHealthOtheron 92-33-7089Sasxi TubeHold for add-ons.OhioHealthComment on above:Auto resulted. Vital Signs Date TimeVital SignValuePerforming UruwoidcxOhmgzvaq39-62-0291 14:03-0400Body ujyilv630.1 cmAlexandrea Foy MD Work Phone: [phone]08-14-2025 14:03-0400 Body mass index (BMI) [Ratio]24.7 kg/d0RnhwhdhAlexandrea Foy MD Work Phone: [phone]08-14-2025 14:03-0400 Body kzojgaujcby16.6 [degF]Alexandrea Foy MD Work Phone: [phone] [address]08-14-2025 14:03-0400 Body djpaou83.58 kgAlexandrea Foy MD Work Phone: [phone] [address]08-14-2025 14:03-0400 Diastolic blood mm[Hg]Alexandrea Foy MD Work Phone: [phone]08-14-2025 14:03-0400 Heart rate90 /Yaneth Foy MD Work Phone: [facility]08-14-2025 14:03-0400 Respiratory rate18 /Yaneth Foy MD Work Phone: [phone]08-14-2025 14:03-0400 SaO2% (BldA) [Mass fraction]99 %Alexandrea Foy MD Work Phone: [phone] [address]08-14-2025 14:03-0400 Systolic blood jolcmnhm848 mm[Hg]Alexandrea Foy MD Work Phone: [phone] [address]07-31-2024 14:03-0400 Body uzaohr704.56 cmMart[facility]07-31-2024 14:03-0400Body mass index (BMI) [Ratio]28.1 kg/f4PpcvsccorMartins Ferry Hospital07-31-2024 14:03-0400Body jffeayddtui473.3 [degF][facility] 04-16-2024 14:03-0400Body qmtqew55.44 kgMartins Ferry Hospital 04-16-2024 14:03-0400Diastolic blood mgtbzjan67 mm[Hg][facility]07-31-2024 14:03-0400Heart rate88 /minMartins Ferry Hospital 04-16-2024 14:03-7686JxK2% (BldA) [Mass fraction]99 %[facility]07-31-2024 14:03-0400Systolic blood wyrjqzwh092 mm[Hg][facility]03-27-2023 10:20-0400Body oauquj511.56 cmPsimone Sena Other [employer] Other 03-27-2023 10:20-0400Body mass index (BMI) [Ratio] 30.04 kg/s4ZsukfcBrooke Sena Other [employer] Other 03-27-2023 10:20-0400Body umqytyeeult46.9 [degF]Brooke Hirschmond Other [employer] Other 03-27-2023 10:20-0400Body .38 kgBrooke Sena Other [employer] Other 03-27-2023 10:20-0400Respiratory rate18 /minBrooke Sena Other [employer] Other 03-27-2023 10:20-6803MzX3% (BldA) [Mass fraction]97 % Brooke Sena Other [employer] Other 04-10-2019 08:19-0400Body Dnqbbypscew30.29 [degF] [facility] ClinicYtsllxmXhpzYsokrm32-46-3012 08:19-0400BP Mrisggbsi29 mm[Hg][facility] ClinicDtzcdcoFtdiSaslqg54-07-9799 08:19-0400BP Xnhpfmxt998 mm[Hg][facility]04-10-2019 08:0400Pulse (Heart Rate)59 /minAdelia Holzer Health SystemPjoqDfdxtd53-95-9130 08:-0400Pulse Yjibgnga75 %[facility] 12-25-2018 08:0400Respiratory Rate16 /minCleveland ClinicMyreyqyLigjCsvbdz64-59-6060 04:0400BMI (Body Mass Index)25.01 kg/q6VdtrvyaCleveland ClinicCkedrygDarkYchsnz53-87-6650 04:9091Qagfkm15.1 kgCleveland ClinicIjiketuDiagMbsgiq97-18-0089 11:1343Ipoerb177.6 cmCleveland Clinic Encounters Encounter DateEncounter TypeCare ProviderFacilityStart: 04-30-2025 End: 49-52-5258kwqlmwzjuzZkiuomd M Hoy MD Work Phone: [facility] Work Phone: Start: 04-30-2025 End: 14-20-1063Jynzaxw encounter procedurePatucker Castanon [employer]-[facility] [place] Work Phone: Start: 04-16-2024 End: 02-19-4376avmpvcnlghKhhxgtxcuBucyrus Community Hospital Work Phone: Start: 04-16-2024 End: 81-62-1725Ntvqjta encounter procedureIredell Memorial [facility] [place] Work Phone: Start: 07-31-2023 End: 60-49-7743wrtttyqxatNHMYS FAZIONot AvailableStart: 12-11-2022 End: 56-08-2734nhoapmsdjvUmauom Dymond Other [employer] Other Start: 69-26-5820Bfikhu outpatient visit 25 minutes Brooke SenaFPG Urgent Care ClydeStart: 01-08-2020 End: 15-43-1931Argyktj encounter procedureDOUGCARISA FOYFacility:X8Bduih: 92-75-5709Xwrarzp encounter procedureDOUGLAS HOYaniraFacility:L9Nqyxb: 02-20-2019 End: 65-14-1146Htojctw encounter procedurePAINOCENCIO ALLENFacility:S5Ugdgd: 12-24-2018 End: 46-44-7797Pkfmernjkb and management of inpatientDOKRISSY [facility] Toledotart: 12-21-2018 End: 57-82-4172Tkyiuruool and management of inpatientAdelia Levine Bernard Work Phone: [facility] Med SurgComment on above: Abdominal pain, unspecified abdominal location (Primary Dx); Nausea and vomiting, intractability of vomiting not specified, unspecified vomiting type; Elevated blood pressure reading; Hyperbilirubinemia; Transaminitis; Elevated serum creatinine; Calculus of gallbladder and bile duct with obstruction without cholecystitis; Post-operative pain Procedures DateProcedureProcedure DetailPerforming ClinicianStart: 81-95-9379Ewecg Strep (POC)Alexandrea Foy MD Work Phone: Start: 11-62-0135Usxjc Strep (POC)Start: 12-25-2018 Bilirubin.direct [Mass/volume] in Serum or PlasmaAimee Lariccia Work Phone: Start: 75-91-4709Hijtppzt blood count (hemogram) panel - Blood by Automated countAimee Lariccia Work Phone: Start: 58-65-2742Qpztyzovivvvs metabolic 2000 panel - Serum or PlasmaAimee Lariccia Work Phone: Start: 12-24-2018 End: 66-59-1811AZRPFJKEOZINSJE LAPAROSCOPICGrtiny Chowdhury Work Phone: Start: 36-16-5212Yoxqkpxtk.direct [Mass/volume] in Serum or PlasmaAimee Larsav Work Phone: Start: 85-66-4230Xaucsndwluovfynaji.beta subunit ( test) [Presence] in Serum or PlasmaSabrina Berta Montes Work Phone: Start: 06-22-0564Mlpentrf blood count (hemogram) panel - Blood by Automated countAlexe Gianluca Work Phone: Start: 60-76-2488Scfgztqswgpln metabolic 2000 panel - Serum or PlasmaAlexe Gianluca Work Phone: Start: 43-29-0749Ohlavm [Enzymatic activity/volume] in Serum or PlasmaAlexe Gianluca Work Phone: Start: 28-37-0347Hgkdoatqna retrograde cholangiopancreatography (ERCP) with dilatation of bile duct using fluoroscopic guidanceOsmin Batista Work Phone: Start: 98-62-3320Evjynoujxnj up to 1 hour physician/qhp timeOsmin Batista Work Phone: Start: 50-19-3539Clegyjaust retrograde cholangiopancreatographyOsmin Batista Work Phone: Start: 68-40-4253KNSAYOQIQR RETROGRADE CHOLANGIOPANCREATOGRAPHYOsmin Batista Work Phone: Start: 33-36-3694Fpjidmplv.direct [Mass/volume] in Serum or PlasmaFranny Dela Cruz Work Phone: Start: 51-18-8009Ywxkvtkr blood count (hemogram) panel - Blood by Automated countFranny Dela Cruz Work Phone: Start: 23-64-3853Syzghrqtmjsgl metabolic 2000 panel - Serum or PlasmaFranny Dela Cruz Work Phone: Start: 67-66-5527Ejhbeg [Enzymatic activity/volume] in Serum or PlasmaFranny Dela Cruz Work Phone: Start: 37-32-6409Xyiapob.ionized [Mass/volume] in Serum or PlasmaFranny Dela Cruz Work Phone: Start: 99-86-5114Xvlac metabolic 2000 panel - Serum or PlasmaBenamayamin Edu Jerry Work Phone: Start: 64-40-7262Rdsjgixu blood count (hemogram) panel - Blood by Automated countBenamayamin Edu Jerry Work Phone: Start: 01-94-2431Slsxvce function 2000 panel - Serum or PlasmaBehoward Jerry Work Phone: Start: 67-11-5808Sbcrfnoyu [Mass/volume] in Serum or PlasmaFranny Dela Cruz Work Phone: Start: 24-33-3163Iwshzcwkc [Mass/volume] in Serum or PlasmaFranny Dela Cruz Work Phone: Start: 21-15-6393Sh abdomen & pelvis w/contrast materialAlexander Ricki Huffman Work Phone: art: 10-06-4355XR scan of upper abdomenAlexand Ricki Huffman Work Phone: art: 12-34-9885VnhgvekpceXdizpur Julianna Sulmaqryan Work Phone: [phone]-art: 61-75-4770Qaymhtndmrmvs [Mass/volume] in Serum or PlasmaAdelia Wagner Work Phone: art: 71-28-0982Tkmiyemqm.direct [Mass/volume] in Serum or PlasmaAdelia Wagner Work Phone: art: 61-04-8082Kerkbeth blood count with white cell differential, automatedAdelia Julianna Bernard Work Phone: art: 12-02-9611Cjuinfyz blood count with white cell differential, manualAdelia Wagner Work Phone: Start: 42-29-6608Iexzxnxkydpvi metabolic 2000 panel - Serum or PlasmaAdelia Wagner Work Phone: Start: 50-41-4698GXTK TOPTriage Protocol Emergency Start: 12-29-3004Aywcqqthv panel measurementAdelia Wagner Work Phone: Start: 35-90-3614TZPBNTNW TOPTriage Protocol Emergency Start: 93-48-2207HXDZF BLUE TOPTriage Protocol EmergencyStart: 16-55-6424EECVN GREEN TOPTriage Protocol EmergencyStart: 66-74-9581Oducsi [Enzymatic activity/volume] in Serum or PlasmaAdelia Wagner Work Phone: Start: 81-13-6871RMIJ GREEN TOPTriage Protocol Emergency Plan of Treatment DateCare ActivityDetailAuthorStart: 58-49-1938Dgserzeag vaccination given SEQUENTIAL INFLUENZA VACCINE (#1)IndianaHealthStart: 23-31-1417Bgnhaas and physical examination, annual for health maintenanceCarilion Clinic St[facility] VisitOhioHealthStart: 37-38-6574Vgjeviqko for Chlamydia trachomatisChlamydia ScreeningOhioHealthStart: 35-78-8340Wsdwonn vaccinationTETANUS EVERY 10 YROhioHealthHCG ( test) Ql (U)POC , Urine MALORIE 12/21/2018 10:31 PM EDTOhioHealthProcedure on tissue specimenOhioHealthComment on above:Once for 1 Occurrences starting 12/24/2018, 1 completedRainbow DrawRainbow Draw STAT 12/21/2018 10:21 PM EDT [facility] Payers DatePayer CategoryPayerPolicy [id number] BCBS OUT OF STATE [facility] xxxxxxxxxxxx 2011-Presentxxxxxxxxxxxx [id number]-[id number] Social History DateTypeDetailFacilityStart: 12-25-2018 End: 26-79-2658Nfbqyzq smoking status NHISNever smokerCincinnati Children's Hospital Medical Centerex Assigned At BirthNot on fileOhioHealthSex Assigned At [facility] Hospitalex Assigned At [facility] CampusNoDepartment of [facility] Almaviva Santé Other Start: 37-89-1231Lcl Assigned At [facility] FoundationexFemale (finding)[facility] Evaluation note 12-11-2022 Note Date & EmaaZzqoIhbzpwgk90-49-3925 Evaluation note* Encounter Date Diagnosis Assessment Notes [...] negative. She will be treated for strep [facility] Almaviva Santé Other Evaluation note Note Date & TypeNoteFacilityEvaluation noteNo assessment information available [facility] Work Phone: Evaluation note Note Date & TypeNoteFacilityEvaluation note* Diagnosis Onset Date Resolution Status Admit Date Contact with or suspected exposure to dorcas acute respiratory syndrome noneactiveAugust 2024 1:45pmSore throatnoneactiveAugust 2024 1:45pm [facility] Work Phone: History general Narrative - Reported Note Date & TypeNoteFacilityHistory general Narrative - Reported* Type Description Date Surgical History cholecystectomy 2018 [facility] Almaviva Santé Other Reason for referral (narrative) Note Date & TypeNoteFacilityReason for referral (narrative)No reason for referral information availableSt. Francis Hospital Work Phone: Hospital Course * Russell Cantor MD - 12/25/2018 12:40 PM EDT [facility] DISCHARGE SUMMARY Bogdan Keen Admitted: 12/21/2018 Discharge [...] 2 weeks. Dc home with Coclace, Zofran, [place] PRN. Transaminitis T bili 5.4, D bili [...] Stopping: Physician(s) Follow Up: Jackie Chowdhury MD [address] [place] [id number] Call Follow up 2 weeks post-op, please call for an appointment Alexandrea Foy MD [address] [facility] [address] Schedule an appointment as soon [...] or dog food bags, or a vacuum oil tank car cleaner. No lifting anything heavier than 10lbs [...] taking a prescription pain medicine, take an jtas-xjl-edurlah medicine such as acetaminophen (Tylenol), ibuprofen (Advil, [...] Log into your personal health record on https://[employer] and enter F357 in the Education box to learn more about Cholecystectomy: What to Expect at Home. Current as of: January 18, 2015 Content Version: 10.6 0009-8309 [employer]. Care instructions adapted under license by your healthcare professional. If you have questions about a medical condition or this instruction, always ask your healthcare professional. [employer] disclaims any warranty or liability for your [...] - D/C home with Colace, Zofran PRN, [place] PRN - Discussed post-op care and follow up plans with the patient and her mother Jackie Chowdhury MD * Ruma Workman DO - 12/25/2018 9:00 AM EDT GENERAL SURGERY DAILY PROGRESS NOTE Patient Name: Bogdan Keen MR #: [id number] CSN #: [id number] Attending: Jackie Chowdhury MD Clinician: Ruma Workman DO Contact: [phone] Assessment/Plan Choledocholithiasis Cholelithiasis Transaminitis Hyperbilirubinemia - significantly [...] the patient home with prescriptions for Zofran, [place] and Colace - Follow-up in the surgery [...] Cantor MD - 12/25/2018 8:38 AM EDT [facility] DAILY PROGRESS NOTE Assessment and Plan Bogdan [...] Jayson Delarosa D.O. PGY1 * Gilda Power, [facility] - 12/24/2018 10:11 AM EDT Daily Progress Note Patient Name: Bogdan Keen MR#: [id number] Assessment/Plan: 18 yo F who GI is [...] a 18 y.o. y[facility]o female [facility] ep[facility] and right upper [...] Examined & interviewed independently of the GI IMMIGRATION CASE WORKER. All labs, imaging, procedure & pathology reviewed. Directly involvement in management of the patient. Agree with GI IMMIGRATION CASE WORKER assessment & plan. Sign off. Thanks. * Russell Cantor MD - 12/24/2018 8:23 AM EDT [facility] DAILY PROGRESS NOTE Assessment and Plan Bogdan [...] NOTE Patient Name: Bogdan Keen MR #: [id number] [facility] #: [id number] Attending: Jackie Chowdhury MD Clinician: Rickey Dean DO Contact: [phone] Assessment/Plan Choledocholithiasis Cholelithiasis Transaminitis Hyperbilirubinemia - significantly [...] Open cholecystectomy. Jackie Chowdhury MD * Tereza Beasley, MATTY - 12/23/2018 1:41 PM EDT Report to Don * Tereza Beasley RN - 12/23/2018 1:36 PM EDT Much more awake * Tereza Beasley, RN - 12/23/2018 1:31 PM EDT Sips of soda. Pt still very sleepy. * Tereza Beasley, RN - 12/23/2018 1:30 PM EDT Ice chips to pt. * Russell Cantor MD - 12/23/2018 1:02 PM EDT [facility] DAILY PROGRESS NOTE Assessment and Plan Bogdan [...] NOTE Patient Name: Bogdan Keen MR #: [id number] CSN #: [id number] Attending: Jackie Chowdhury MD Clinician: Kimber Hough DO Contact: [phone] Assessment/Plan Choledocholithiasis Cholelithiasis Transaminitis Hyperbilirubinemia AF, vss [...] Chart reviewed. Patient is independent, visiting from [place], [place]. Undergoing GI work up for epigastric [...] Name: Bogdan Keen : 2000 MR #: [id number] Admit Date: 4050925 Physicians: Alexandrea Foy MD [...] with GI in her home city in [facility]. She denies dysuria, fever, chills, CP, [...] Bogdan Keen Admit Date: 4050925 MR #: [id number] : 2000 Physicians: Alexandrea Foy MD (Family); No ref. provider found (Referring) Chief Complaint/Reason for Visit: Abdominal pain History of Present Illness: Bogdan Keen is a 18 y.o. y[facility]o female [facility]/o epigastric and right upper quadrant abdominal pain that is worsened over the past several days. She lives in [facility] and sees a instrument engineer there and had an EGD in the [...] NOTE Patient Name: Bogdan Keen MR #: [id number] [facility] #: [id number] Attending: Jackie Chowdhury MD Resident: Shelley Gorman DO Contact: [phone]/Plan Choledocholithiasis Cholelithiasis Transaminitis Hyperbilirubinemia - afebrile, no leukocytosis, hemodynamically stable - admit to [facility] - IVF - NPO - repeat labs [...] chronic low back pain in some patients. [facility] Workstation ID: [id number] US Abdomen Limited Study [...] chronic low back pain in some patients. [facility] Workstation ID: [id number] Associated attestation - Jackie [...] Nory Theodore RN - 12/22/2018 3:04 AM EDTCNory coats RN - 12/22/2018 2:17 AM Francis Cardenas [...] Pt's mother at bedside. ED PROVIDER NOTE [facility] EM[facility] NAME: Bogdan Keen AGE: 18 y.o. : 2000 VISIT DATE: 12/21/2018 CSN: [id number] PCP: Alexandrea Foy MD Chief Complaint Patient [...] cough. Patient states she li ves in [facility] and is visiting [place] this weekend. Reports having a thorough GI [...] Yellow Clarity, Urine Cloudy (A) Clear Specific [place] 1.031 (H) 1.005 - 1.025 pH, Urine [...] chronic low back pain in some patients. [facility] Workstation ID: [id number] US Abdomen Limited Study [...] Date of Service: 12/21/2018 - 12/24/2018 CSN: [id number] Procedure(s): CHOLECYSTECTOMY LAPAROSCOPIC POSSIBLE OPEN Pre-Operative Diagnoses: * Cholelithiasis Post-Operative Diagnoses: * Same as Pre-Op Diagnosis Surgeon(s) and Role: * Jackie Chowdhury MD - Primary * Rickey Dean DO - Resident - Assisting Anesthesiologist: Gonzalo Rossi MD; Dax Murphy MD LETTER OF CREDIT DOCUMENT EXAMINER: Debbi Albarran CRNA Bonbon Cream Warmer: Vesta Lester RN Bonbon Cream Warmer Relief: Anai Rand RN Scrub Person: ST [place] Anesthesia Specialist: Puneet Nguyen Operative findings: Cholelithiasis [...] the patient. I discussed the patient with SECURITY INTELLIGENCE ANALYST/PA. I agree with the SECURITY INTELLIGENCE ANALYST/PA treatment plan. I agree with the SECURITY INTELLIGENCE ANALYST/PA plan of care. I agree with the SECURITY INTELLIGENCE ANALYST/PA dispo as documented. Patient is an 18-year-old [...] section and content) DATE CREATED AUTHOR 12/28/2018 [facility] DATE CREATED AUTHOR AUTHOR'S ORGANIZ ATION 01/14/2020 [facility] DATE CREATED AUTHOR AUTHOR'S ORGANIZ ATION 08/01/2023 [facility] EPIC Care Teams (unrecognized [...] 2025 End: April 30, 2025Cris Castanon APRN SECURITY INTELLIGENCE ANALYST-CAttending Provider ActiveStart: April 30, 2025 End: April [...] BE BASED ON THE PRIMARY CLINICAL RECORDS. [employer] provides no warranty or guarantee of the accuracy or completeness of information in this document.
[2025-08-07 09:25] LABS: Hematocrit 39.0 % (36.0-48.0); Hemoglobin 13.2 g/dL (12.0-16.0); Immature Granulocytes Abs Auto 0.04 10^3/uL (0.00-0.03); Immature Granulocytes Pct Auto 0.4 % (0.0-0.5); Lymphocytes Absolute Auto 2.2 10^3/uL (1.2-3.8); Mean Corpuscular HGB Conc 33.8 g/dL (29.9-35.2); Mean Corpuscular Hemoglobin 28.8 pg (26.7-34.0); Mean Corpuscular Volume 85.2 fL (81.0-99.0); Platelet Count 241 10^3/uL (150-450); Red Blood Count 4.58 10^6/uL (4.20-5.40); White Blood Count 10.3 10^3/uL (4.0-11.0)
[2025-08-07 10:59] LABS: Cannabinoid Screen Urine POSITIVE (NEGATIVE); Methamphetamines Screen Urine NEGATIVE (NEGATIVE); Tricyclic Antidepressant Urine NEGATIVE (NEGATIVE)
[2025-08-08 08:09] LABS: Rubella Antibodies, IgG 1.29 index (Immune >0.99)
[2025-08-08 13:09] LABS: Rapid Plasma Reagin, Quant Non Reactive titer (NonRea<1:1)
== END 2025-08-07 08:42 | disposition home or self-care (01) ==
LOC: LAB 08:42
PROVIDERS: PCP Family Medicine; Visit Provider Obstetrics & Gynecology
DX: Z34.01 Encounter for supervision of normal first pregnancy, first trimester (principal); N92.6 Irregular menstruation, unspecified
CPT/HCPCS: 36415; 80307; 80349; 83036; 85025; 86592; 86762; 86803; 86850; 86900; 86901; 87086; 87340; 87389